=== PATIENT | female | born 1935 | race Caucasian/White ===

== ENCOUNTER 2017-04-19 22:58 | Emergency (ER) | payer MEDICARE, BC ==
[2017-04-19 23:04] VITALS: RESP 18; TEMP 98.3
[2017-04-19] MEDS ORDERED: CEPHALEXIN 500 MG CAP PO STA (23:32)
[2017-04-19] MEDS ORDERED: DIPH,PERTUS(ACELL)TETVAC-LF 0.5 ML VIAL IM ONE (23:32)
--- NOTE | 2017-04-19 23:37 | ED ---
Wound/Laceration HPI - General Chief Complaint: Wound/Laceration Stated Complaint: hand lac Time Seen by Provider: 04/19/17 23:19 Source: patient, RN notes reviewed Mode of arrival: ambulatory Limitations: altered mental status - History of Present Illness Initial Comments: 81-year-old female presents emergency Department chief complaint of cat scratch her left hand. She is unsure when her last tetanus was. Patient states there' s been some bruising from the site since the injury. Patient states this was caused by her cat. Patient states that she is diabetic though she is not taking any blood thinners and which would increase her bleeding recurs. Patient states she has full range of motion hand. - Related Data Previous Rx's Medication Instructions Recorded Amoxicillin/Potassium Clav 1 tab PO Q12HR #20 tab 04/19/17 [Augmentin 875-125 Tablet] Allergies Allergy/AdvReac Type Severity Reaction Status Date / Time No Known Allergies Allergy Verified 04/19/17 23:04 Review of Systems ROS Statement: Those systems with pertinent positive or pertinent negative responses have been documented in the HPI. ROS Other: All systems not noted in ROS Statement are negative. Past Medical History Past Medical History: Dementia, Diabetes Mellitus, Hypertension History of Any Multi-Drug Resistant Organisms: None Reported Past Surgical History: Cholecystectomy, Orthopedic Surgery Past Psychological History: No Psychological Hx Reported Smoking Status: Never smoker Past Alcohol Use History: None Reported Past Drug Use History: None Reported General Exam Limitations: altered mental status General appearance: alert, in no apparent distress Respiratory exam: Present: normal lung sounds bilaterally. Absent: respiratory distress, wheezes, rales, rhonchi, stridor Cardiovascular Exam: Present: regular rate, normal rhythm, normal heart sounds. Absent: systolic murmur, diastolic murmur, rubs, gallop, clicks Extremities exam: Present: other (Left hand there is a 3 cm superficial laceration to the left hand between the first and second digit) Skin exam: Present: warm, dry Course Vital Signs 04/19/17 23:01 Temperature 98.3 F Pulse Rate 65 Respiratory 18 Rate Blood Pressure 178/73 O2 Sat by Pulse 96 Oximetry Medical Decision Making - Medical Decision Making 81-year-old female presented emergency for Ashtray this was thoroughly cleaned bacitracin applied there is no active bleeding. The area was steri strips and dressed. Patient we given antibiotics and return parameters were discussed. Patient's tetanus is updated. Disposition Clinical Impression: Cat scratch Disposition: HOME SELF-CARE Condition: Stable Instructions: Animal Bite (ED) Additional Instructions: Please return to the Emergency Department if symptoms worsen or any other concerns. Prescriptions: Amoxicillin/Potassium Clav [Augmentin 875-125 Tablet] 1 tab PO Q12HR #20 tab Referrals: Juan Vega MD [Primary Care Provider] - 1-2 days Time of Disposition: 23:36
[2017-04-20 00:21] VITALS: BP 160/79; PULSE 72
== END 2017-04-20 00:15 | disposition home or self-care (01) ==
LOC: EC 22:58
DX: S60.512A Abrasion of left hand, initial encounter (principal); Z23 Encounter for immunization; W55.03XA Scratched by cat, initial encounter
CPT/HCPCS: 90471; 90715; 99282

== ENCOUNTER 2017-05-10 13:08 | Emergency (ER) | payer MEDICARE, BC ==
[2017-05-10 13:18] VITALS: RESP 18
[2017-05-10] MEDS ORDERED: SODIUM CHLORIDE 0.9% 1,000 ML IV STA (14:02)
[2017-05-10] MEDS ORDERED: MORPHINE SULFATE 4 MG/ML SYRINGE IV STA (14:02)
[2017-05-10] MEDS ORDERED: SODIUM CHLORIDE 0.9% 500 ML IV STA (14:02)
[2017-05-10] MEDS ORDERED: RX INFO: IV CONTRAST WAS GIVEN 1 EACH MISC MISCELLANE PRN (14:02)
[2017-05-10 14:27] LABS: Appearance,Urine Clear (Clear); Bilirubin,Urine Negative (Negative); Glucose,Urine (UA) 1+ (Negative); Ketones,Urine Negative (Negative); Leukocyte Esterase,Urine Moderate (Negative); Mucus,Urine Rare /hpf; Nitrite,Urine Negative (Negative); Particle Count 1587; Protein,Urine 2+ (Negative); RBC,Urine 2 /hpf (0-5); Specific Gravity,Urine 1.014 (1.001-1.035); Squamous Epithelial Cell,Urine 3 /hpf (0-4); UA Billing (MACRO vs. MICRO) MICRO; Urobilinogen,Urine <2.0 mg/dL (<2.0); WBC,Urine 18 /hpf (0-5)
[2017-05-10 14:42] LABS: Basophils % (A) 0 %; CH 29.3; CHCM 32.1; Eosinophils # (A) 0.3 k/uL (0-0.7); Eosinophils % (A) 3 %; HCT 40.7 % (34.0-46.0); HDW 2.21; HGB 13.4 gm/dL (11.4-16.0); Luc # (Auto) 0.13; Luc % (Auto) 2; Lymphocytes # (A) 1.9 k/uL (1.0-4.8); Lymphocytes % (A) 23 %; MCH 30.1 pg (25.0-35.0); MCHC 32.8 g/dL (31.0-37.0); MCV 91.8 fL (80.0-100.0); Mean Platelet Volume 7.5; Monocytes # (A) 0.4 k/uL (0-1.0); Monocytes % (A) 5 %; Neutrophils # (A) 5.6 k/uL (1.3-7.7); Neutrophils % (A) 67 %; RBC 4.43 m/uL (3.80-5.40); RDW 14.4 % (11.5-15.5); WBC 8.4 k/uL (3.8-10.6); WBC (Perox) 8.63
[2017-05-10 14:52] LABS: Amylase 41 U/L (30-110); Anion Gap 11 mmol/L; Calcium 9.6 mg/dL (8.4-10.2); Carbon Dioxide 25 mmol/L (22-30); Chloride 105 mmol/L (98-107); Glucose 145 mg/dL (74-99); Non-African American GFR(MDRD) >60 (>60 ml/min/1.73 sqM); Sodium 141 mmol/L (137-145); Total Bilirubin 0.7 mg/dL (0.2-1.3)
[2017-05-10 14:54] LABS: ALT 26 U/L (9-52); AST 36 U/L (14-36); Alkaline Phosphatase 64 U/L (38-126); Blood Urea Nitrogen 19 mg/dL (7-17); Potassium 4.7 mmol/L (3.5-5.1); Total Protein 7.3 g/dL (6.3-8.2)
--- NOTE | 2017-05-10 15:44 | ED ---
General Adult HPI - General Chief complaint: Abdominal Pain Stated complaint: Female Time Seen by Provider: 05/10/17 13:37 Source: patient, family, RN notes reviewed, old records reviewed Mode of arrival: wheelchair Limitations: no limitations - History of Present Illness Initial comments: This is an 82-year-old female to the ER for evaluation today. Patient's presented for evaluation of abdominal pain. States he has never had similar abdominal pain before, she is mainly concerned for urinary tract infection which is mid to left-sided abdominal pain left anterior abdominal pain. Denies blood in her urine denies diarrhea denies nausea or vomiting. No fevers no travel history. Patient does have history of cholecystectomy. Patient states she is eating and having bowel movement at this time. Again pain started yesterday into today and is progressively worsening - Related Data Home Medications Medication Instructions Recorded Confirmed Donepezil [Aricept] 10 mg PO DAILY 05/10/17 05/10/17 Losartan Potassium 75 mg PO DAILY 05/10/17 05/10/17 amLODIPine [Norvasc] 10 mg PO DAILY 05/10/17 05/10/17 metFORMIN HCL [Glucophage] 500 mg PO BID 05/10/17 05/10/17 Previous Rx's Medication Instructions Recorded Nitrofurantoin Monohyd/M-Cryst 100 mg PO Q12HR #10 cap 05/10/17 [Macrobid] Allergies Allergy/AdvReac Type Severity Reaction Status Date / Time No Known Allergies Allergy Verified 05/10/17 14:26 Review of Systems ROS Statement: Those systems with pertinent positive or pertinent negative responses have been documented in the HPI. ROS Other: All systems not noted in ROS Statement are negative. Past Medical History Past Medical History: Dementia, Diabetes Mellitus, Hypertension History of Any Multi-Drug Resistant Organisms: None Reported Past Surgical History: Cholecystectomy, Orthopedic Surgery Past Psychological History: No Psychological Hx Reported Smoking Status: Never smoker Past Alcohol Use History: None Reported Past Drug Use History: None Reported General Exam Limitations: no limitations General appearance: alert, in no apparent distress Head exam: Present: atraumatic, normocephalic, normal inspection Eye exam: Present: normal appearance, PERRL, EOMI. Absent: scleral icterus, conjunctival injection, periorbital swelling ENT exam: Present: normal exam, mucous membranes moist Neck exam: Present: normal inspection. Absent: tenderness, meningismus, lymphadenopathy Respiratory exam: Present: normal lung sounds bilaterally. Absent: respiratory distress, wheezes, rales, rhonchi, stridor Cardiovascular Exam: Present: regular rate, normal rhythm, normal heart sounds. Absent: systolic murmur, diastolic murmur, rubs, gallop, clicks GI/Abdominal exam: Present: soft, tenderness (Left lower quadrant pain), normal bowel sounds. Absent: distended, guarding, rebound, rigid Extremities exam: Present: normal inspection, full ROM, normal capillary refill. Absent: tenderness, pedal edema, joint swelling, calf tenderness Back exam: Present: normal inspection Neurological exam: Present: alert, oriented X3, CN II-XII intact Psychiatric exam: Present: normal affect, normal mood Skin exam: Present: warm, dry, intact, normal color. Absent: rash Course Vital Signs 05/10/17 05/10/17 13:15 14:29 Temperature 98.7 F Pulse Rate 79 73 Respiratory 18 18 Rate Blood Pressure 169/77 165/81 O2 Sat by Pulse 95 95 Oximetry - Reevaluation(s) Reevaluation #1: 05/10/17 15:52 Patient has adequate pain control at this time with no distress Medical Decision Making - Medical Decision Making 82 female to the ER for evaluation of bowel pain. Mild dysuria. Patient has positive urinary tract infection lab work and CT are negative. Patient can be discharged on - Lab Data Result diagrams: 05/10/17 14:26 05/10/17 14:26 Lab Results 05/10/17 05/10/17 05/10/17 Range/Units 14:17 14:26 14:26 WBC 8.4 (3.8-10.6) k/uL RBC 4.43 (3.80-5.40) m/uL Hgb 13.4 (11.4-16.0) gm/dL Hct 40.7 (34.0-46.0) % MCV 91.8 (80.0-100.0) fL MCH 30.1 (25.0-35.0) pg MCHC 32.8 (31.0-37.0) g/dL RDW 14.4 (11.5-15.5) % Plt Count 360 (150-450) k/uL Neutrophils % 67 % Lymphocytes % 23 % Monocytes % 5 % Eosinophils % 3 % Basophils % 0 % Neutrophils # 5.6 (1.3-7.7) k/uL Lymphocytes # 1.9 (1.0-4.8) k/uL Monocytes # 0.4 (0-1.0) k/uL Eosinophils # 0.3 (0-0.7) k/uL Basophils # 0.0 (0-0.2) k/uL Sodium 141 (137-145) mmol/L Potassium 4.7 (3.5-5.1) mmol/L Chloride 105 (98-107) mmol/L Carbon Dioxide 25 (22-30) mmol/L Anion Gap 11 mmol/L BUN 19 H (7-17) mg/dL Creatinine 0.82 (0.52-1.04) mg/dL Est GFR (MDRD) Af Amer >60 (>60 ml/min/1.73 sqM) Est GFR (MDRD) Non-Af >60 (>60 ml/min/1.73 sqM) Glucose 145 H (74-99) mg/dL Plasma Lactic Acid Jian (0.7-2.0) mmol/L Calcium 9.6 (8.4-10.2) mg/dL Total Bilirubin 0.7 (0.2-1.3) mg/dL AST 36 (14-36) U/L ALT 26 (9-52) U/L Alkaline Phosphatase 64 (38-126) U/L Total Protein 7.3 (6.3-8.2) g/dL Albumin 4.2 (3.5-5.0) g/dL Amylase 41 (30-110) U/L Lipase 95 (23-300) U/L Urine Color Yellow Urine Appearance Clear (Clear) Urine pH 7.0 (5.0-8.0) Ur Specific [place] 1.014 (1.001-1.035) Urine Protein 2+ H (Negative) Urine Glucose (UA) 1+ H (Negative) Urine Ketones Negative (Negative) Urine Blood Negative (Negative) Urine Nitrite Negative (Negative) Urine Bilirubin Negative (Negative) Urine Urobilinogen <2.0 (<2.0) mg/dL Ur Leukocyte Esterase Moderate H (Negative) Urine RBC 2 (0-5) /hpf Urine WBC 18 H (0-5) /hpf Ur Squamous Epith Cells 3 (0-4) /hpf Urine Mucus Rare H (None) /hpf 05/10/17 Range/Units 14:26 WBC (3.8-10.6) k/uL RBC (3.80-5.40) m/uL Hgb (11.4-16.0) gm/dL Hct (34.0-46.0) % MCV (80.0-100.0) fL MCH (25.0-35.0) pg MCHC (31.0-37.0) g/dL RDW (11.5-15.5) % Plt Count (150-450) k/uL Neutrophils % % Lymphocytes % % Monocytes % % Eosinophils % % Basophils % % Neutrophils # (1.3-7.7) k/uL Lymphocytes # (1.0-4.8) k/uL Monocytes # (0-1.0) k/uL Eosinophils # (0-0.7) k/uL Basophils # (0-0.2) k/uL Sodium (137-145) mmol/L Potassium (3.5-5.1) mmol/L Chloride (98-107) mmol/L Carbon Dioxide (22-30) mmol/L Anion Gap mmol/L BUN (7-17) mg/dL Creatinine (0.52-1.04) mg/dL Est GFR (MDRD) Af Amer (>60 ml/min/1.73 sqM) Est GFR (MDRD) Non-Af (>60 ml/min/1.73 sqM) Glucose (74-99) mg/dL Plasma Lactic Acid Jian 1.5 (0.7-2.0) mmol/L Calcium (8.4-10.2) mg/dL Total Bilirubin (0.2-1.3) mg/dL AST (14-36) U/L ALT (9-52) U/L Alkaline Phosphatase (38-126) U/L Total Protein (6.3-8.2) g/dL Albumin (3.5-5.0) g/dL Amylase (30-110) U/L Lipase (23-300) U/L Urine Color Urine Appearance (Clear) Urine pH (5.0-8.0) Ur Specific [place] (1.001-1.035) Urine Protein (Negative) Urine Glucose (UA) (Negative) Urine Ketones (Negative) Urine Blood (Negative) Urine Nitrite (Negative) Urine Bilirubin (Negative) Urine Urobilinogen (<2.0) mg/dL Ur Leukocyte Esterase (Negative) Urine RBC (0-5) /hpf Urine WBC (0-5) /hpf Ur Squamous Epith Cells (0-4) /hpf Urine Mucus (None) /hpf - Radiology Data Radiology results: report reviewed (CT abdomen and pelvis is negative), image reviewed Disposition Clinical Impression: UTI (urinary tract infection), Abdominal pain Disposition: HOME SELF-CARE Condition: Good Instructions: Urinary Tract Infection in Women (ED) Prescriptions: Nitrofurantoin Monohyd/M-Cryst [Macrobid] 100 mg PO Q12HR #10 cap Referrals: Juan Vega MD [Primary Care Provider] - 1-2 days
--- NOTE | 2017-05-10 15:47 | CT ---
EXAMINATION TYPE: CT abdomen pelvis w con DATE OF EXAM: 05/10/2017 COMPARISON: NONE HISTORY: Left sided pain CT DLP: 602.8 mGycm Automated exposure control for dose reduction was used. TECHNIQUE: Helical acquisition of images was performed from the lung bases through the pelvis. CONTRAST: Performed without Oral Contrast and with IV Contrast, patient injected with 100 mL of Omnipaque 300. FINDINGS: Heart appears enlarged. Lung bases are clear of consolidation. There is no pleural effusion. Liver shows no focal defect. Spleen and pancreas appear normal. Gallbladder is not seen. Bile ducts a re not dilated. There is no adrenal mass. There are small bilateral renal cortical cysts. There is no hydronephrosis. There is no retroperitoneal adenopathy. There is no ascites. There are multiple sigmoid diverticula. Bladder distends smoothly. There is no sign of a pelvic mass. There are spondylotic changes in the l umbar spine. Abdominal aorta is atheromatous. IMPRESSION: MODERATELY SEVERE SIGMOID DIVERTICULOSIS. NO DEFINITE DIVERTICULITIS. ATHEROSCLEROTIC VASCULAR DISEAS E. SPONDYLOTIC CHANGES IN THE LUMBAR SPINE. NO SIGN OF APPENDICITIS. MODERATE OSTEOARTHRITIS NOTED IN BOTH HIP JOINTS.
[2017-05-10] MEDS ORDERED: NITROFURANTOIN MONOHYD/M-CRYST 100 MG CAP PO STA (15:51)
[2017-05-10 16:15] VITALS: BP 175/76; PULSE 78; TEMP 97.6
== END 2017-05-10 16:25 | disposition home or self-care (01) ==
LOC: EC 13:08
DX: N39.0 Urinary tract infection, site not specified (principal); E11.9 Type 2 diabetes mellitus without complications; I10 Essential (primary) hypertension; F03.90 Unspecified dementia, unspecified severity, without behavioral disturbance, psychotic disturbance, mood disturbance, and anxiety; Z90.49 Acquired absence of other specified parts of digestive tract; Z53.8 Procedure and treatment not carried out for other reasons; Z79.84 Long term (current) use of oral hypoglycemic drugs; Z79.899 Other long term (current) drug therapy
CPT/HCPCS: 96360 ×2; 96361 ×2; 99284 ×2; 36415; 80053; 82150; 83605; 83690; 85025; 81001; 87086; 87077; 87186; 74177; Q9967

== ENCOUNTER 2017-10-21 10:33 | Inpatient (IN) | payer MEDICARE, BC ==
[2017-10-21 11:21] LABS: Basophils % (A) 0 %; Eosinophils # (A) 0.1 k/uL (0-0.7); Eosinophils % (A) 1 %; HCT 34.6 % (34.0-46.0); HGB 11.8 gm/dL (11.4-16.0); Lymphocytes # (A) 0.7 k/uL (1.0-4.8); Lymphocytes % (A) 9 %; MCH 29.5 pg (25.0-35.0); MCV 86.7 fL (80.0-100.0); Mean Platelet Volume 7.8; Monocytes # (A) 0.5 k/uL (0-1.0); Monocytes % (A) 7 %; Neutrophils # (A) 6.4 k/uL (1.3-7.7); Neutrophils % (A) 82 %; Platelet Count 305 k/uL (150-450); RBC 3.99 m/uL (3.80-5.40); RDW 13.8 % (11.5-15.5); WBC 7.8 k/uL (3.8-10.6)
[2017-10-21 11:29] LABS: Prothrombin Time 9.6 sec (9.0-12.0)
--- NOTE | 2017-10-21 11:30 | XR ---
EXAMINATION TYPE: XR chest 2V DATE OF EXAM: 10/21/2017 COMPARISON: NONE HISTORY: Cough and difficulty breathing. TECHNIQUE: Frontal and lateral views of the chest are obtained. FINDINGS: There is suspicious retrocardiac opacity on 2 views with air bronchograms. Right lung is c lear. The cardiac silhouette size is upper limits of normal with atherosclerotic change in aortic kno b. Spine is straightened on lateral image. IMPRESSION: Suspicious posterior left lower lobe infiltrate.
[2017-10-21 11:36] LABS: Partial Thromboplastin Time 22.1 sec (22.0-30.0)
[2017-10-21 11:50] LABS: Creatine Kinase 77 U/L (30-135)
[2017-10-21 12:01] LABS: Troponin I <0.012 ng/mL (0.000-0.034)
[2017-10-21 12:50] LABS: Albumin 3.1 g/dL (3.5-5.0); Calcium 8.7 mg/dL (8.4-10.2); Potassium 5.2 mmol/L (3.5-5.1); Total Bilirubin 0.4 mg/dL (0.2-1.3); Total Protein 5.7 g/dL (6.3-8.2)
[2017-10-21] MEDS ORDERED: cefTRIAXone IN SWFI 2,000 MG/20 ML SYRINGE IVP STA (15:17)
--- NOTE | 2017-10-21 15:17 | ED ---
SOB HPI - General Chief Complaint: Shortness of Breath Stated Complaint: Cough, Congestion Time Seen by Provider: 10/21/17 10:49 Source: patient, family Mode of arrival: wheelchair Limitations: altered mental status - History of Present Illness Initial Comments: 82 years old lady came to the doctor's office she was quite short winded there she says sure shortness of breath been around for 2 days now and denies any chest pain it doesn't hurt to take deep breaths denies any fever or any chills she has been spitting up some phlegm. She does have a history of diabetes and hypertension. Denies any fever no chills no neck stiffness no abdominal pain no frequency urgency dysuria no symptoms of TIA or CVA - Related Data Home Medications Medication Instructions Recorded Confirmed Donepezil [Aricept] 10 mg PO HS 05/10/17 10/21/17 Losartan Potassium 75 mg PO DAILY 05/10/17 10/21/17 amLODIPine [Norvasc] 10 mg PO DAILY 05/10/17 10/21/17 metFORMIN HCL [Glucophage] 500 mg PO AC-BID 05/10/17 10/21/17 Atenolol [Tenormin] 50 mg PO BID 10/21/17 10/21/17 Magnesium Oxide [Mag-Ox] 400 mg PO BID 10/21/17 10/21/17 Memantine [Namenda] 5 mg PO BID 10/21/17 10/21/17 Pantoprazole [Protonix] 40 mg PO DAILY 10/21/17 10/21/17 glipiZIDE [Glucotrol] 10 mg PO AC-BID 10/21/17 10/21/17 Allergies Allergy/AdvReac Type Severity Reaction Status Date / Time No Known Allergies Allergy Verified 10/21/17 10:38 Review of Systems ROS Statement: Those systems with pertinent positive or pertinent negative responses have been documented in the HPI. ROS Other: All systems not noted in ROS Statement are negative. Past Medical History Past Medical History: Dementia, Diabetes Mellitus, Hypertension History of Any Multi-Drug Resistant Organisms: ESBL Date of last positivie culture/infection: 05/10/17 MDRO Source:: URINE ESBL Past Surgical History: Cholecystectomy, Orthopedic Surgery Past Psychological History: No Psychological Hx Reported Smoking Status: Never smoker Past Alcohol Use History: None Reported Past Drug Use History: None Reported General Exam - General Exam Comments Initial Comments: General: The patient is awake and alert, in mild distress Skin: Skin is warm and dry and no rashes or lesions are noted. Eye: Pupils are equal, round and reactive to light, extra-ocular movements are intact; there is normal conjunctiva bilaterally. Ears, nose, mouth and throat: There are moist mucous membranes and no oral lesions. Neck: The neck is supple, there is no tenderness Cardiovascular: There is a regular rate and rhythm. No murmur, rub or gallop is appreciated. Respiratory: To auscultation bilateral, noticed some crackles at the bases Gastrointestinal: Soft, non-distended, non-tender abdomen without masses or organomegaly noted. There is no rebound or guarding present. Bowel sounds are unremarkable. Back: There is no tenderness to palpation in the midline. There is no obvious deformity. Musculoskeletal: Normal ROM, no tenderness, There is no pedal edema. There is no calf tenderness or swelling. No cords were appreciated. Neurological: CN II-XII intact, Cranial nerves III through XII are intact. There are no obvious motor or sensory deficits. Coordination appears grossly intact. Speech is normal. Psychiatric: Cooperative, appropriate mood & affect, normal judgment. Limitations: altered mental status Course Vital Signs 10/21/17 10/21/17 10/21/17 10:36 11:03 11:45 Temperature 98.0 F Pulse Rate 65 68 62 Respiratory 20 20 20 Rate Blood Pressure 148/68 150/65 127/60 O2 Sat by Pulse 94 L 97 97 Oximetry 10/21/17 10/21/17 13:33 14:42 Temperature Pulse Rate 57 L 59 L Respiratory 20 18 Rate Blood Pressure 121/60 116/59 O2 Sat by Pulse 97 97 Oximetry EKG is sinus bradycardia ventricular rate is 57 NM interval is 144 QRS duration is 72 QT/QTc is 470/444 review of this EKG does not reveal any ST elevation or ST depression She is reassessed, CBC, INR, BS metabolic panel are unremarkable glucose is 214 creatinine is 1.27 troponin is negative EKG was unremarkable considering she is 82 and has pneumonia Medical Decision Making - Lab Data Result diagrams: 10/21/17 11:00 10/21/17 12:22 Lab Results 10/21/17 10/21/17 10/21/17 Range/Units 11:00 11:00 11:00 WBC 7.8 (3.8-10.6) k/uL RBC 3.99 (3.80-5.40) m/uL Hgb 11.8 (11.4-16.0) gm/dL Hct 34.6 (34.0-46.0) % MCV 86.7 (80.0-100.0) fL MCH 29.5 (25.0-35.0) pg MCHC 34.0 (31.0-37.0) g/dL RDW 13.8 (11.5-15.5) % Plt Count 305 (150-450) k/uL Neutrophils % 82 % Lymphocytes % 9 % Monocytes % 7 % Eosinophils % 1 % Basophils % 0 % Neutrophils # 6.4 (1.3-7.7) k/uL Lymphocytes # 0.7 L (1.0-4.8) k/uL Monocytes # 0.5 (0-1.0) k/uL Eosinophils # 0.1 (0-0.7) k/uL Basophils # 0.0 (0-0.2) k/uL PT (9.0-12.0) sec INR (<1.2) APTT (22.0-30.0) sec Sodium (137-145) mmol/L Potassium (3.5-5.1) mmol/L Chloride (98-107) mmol/L Carbon Dioxide (22-30) mmol/L Anion Gap mmol/L BUN (7-17) mg/dL Creatinine (0.52-1.04) mg/dL Est GFR (CKD-EPI)AfAm (>60 ml/min/1.73 sqM) Est GFR (CKD-EPI)NonAf (>60 ml/min/1.73 sqM) Glucose (74-99) mg/dL Calcium (8.4-10.2) mg/dL Total Bilirubin (0.2-1.3) mg/dL AST (14-36) U/L ALT (9-52) U/L Alkaline Phosphatase (38-126) U/L Total Creatine Kinase 77 (30-135) U/L CK-MB (CK-2) 1.0 (0.0-2.4) ng/mL CK-MB (CK-2) Rel Index 1.3 Troponin I <0.012 (0.000-0.034) ng/mL NT-Pro-B Natriuret Pep 1400 pg/mL Total Protein (6.3-8.2) g/dL Albumin (3.5-5.0) g/dL 10/21/17 10/21/17 Range/Units 11:00 12:22 WBC (3.8-10.6) k/uL RBC (3.80-5.40) m/uL Hgb (11.4-16.0) gm/dL Hct (34.0-46.0) % MCV (80.0-100.0) fL MCH (25.0-35.0) pg MCHC (31.0-37.0) g/dL RDW (11.5-15.5) % Plt Count (150-450) k/uL Neutrophils % % Lymphocytes % % Monocytes % % Eosinophils % % Basophils % % Neutrophils # (1.3-7.7) k/uL Lymphocytes # (1.0-4.8) k/uL Monocytes # (0-1.0) k/uL Eosinophils # (0-0.7) k/uL Basophils # (0-0.2) k/uL PT 9.6 (9.0-12.0) sec INR 1.0 (<1.2) APTT 22.1 (22.0-30.0) sec Sodium 136 L (137-145) mmol/L Potassium 5.2 H (3.5-5.1) mmol/L Chloride 103 (98-107) mmol/L Carbon Dioxide 23 (22-30) mmol/L Anion Gap 10 mmol/L BUN 34 H (7-17) mg/dL Creatinine 1.27 H (0.52-1.04) mg/dL Est GFR (CKD-EPI)AfAm 45 (>60 ml/min/1.73 sqM) Est GFR (CKD-EPI)NonAf 39 (>60 ml/min/1.73 sqM) Glucose 214 H (74-99) mg/dL Calcium 8.7 (8.4-10.2) mg/dL Total Bilirubin 0.4 (0.2-1.3) mg/dL AST 20 (14-36) U/L ALT 21 (9-52) U/L Alkaline Phosphatase 55 (38-126) U/L Total Creatine Kinase (30-135) U/L CK-MB (CK-2) (0.0-2.4) ng/mL CK-MB (CK-2) Rel Index Troponin I (0.000-0.034) ng/mL NT-Pro-B Natriuret Pep pg/mL Total Protein 5.7 L (6.3-8.2) g/dL Albumin 3.1 L (3.5-5.0) g/dL Disposition Clinical Impression: Acute pulmonary edema, Pneumonia, Dyspnea, Renal insufficiency Disposition: ADMITTED IP TO THIS HOSP Condition: Good Referrals: Juan Vega MD [Primary Care Provider] - 1-2 days
[2017-10-21] MEDS ORDERED: AZITHROMYCIN 500 MG TAB PO STA (15:18)
[2017-10-21] MEDS ORDERED: ONDANSETRON 4 MG/2 ML VIAL IVP PRN (15:23)
[2017-10-21] MEDS ORDERED: ACETAMINOPHEN TAB 325 MG TAB PO PRN (15:23)
[2017-10-21] MEDS ORDERED: NALOXONE 0.4 MG/ML 1 ML VIAL IV PRN (15:23)
[2017-10-21] MEDS: glipiZIDE 10 MG TAB PO SCH (18:05)
[2017-10-21] MEDS: metFORMIN 500 MG TAB PO SCH (18:05)
[2017-10-21] MEDS: MAGNESIUM OXIDE 400 MG TAB PO SCH (20:08)
[2017-10-21] MEDS: ATENOLOL 50 MG TAB PO SCH (20:08)
[2017-10-21] MEDS: MEMANTINE 5 MG TAB PO SCH (20:08)
[2017-10-21] MEDS: DONEPEZIL 10 MG TAB PO SCH (20:08)
[2017-10-21 20:51] LABS: Glucose,Whole Blood 217 mg/dL (75-99)
[2017-10-21 23:59] LABS: Creatine Kinase 57 U/L (30-135)
[2017-10-22 00:13] LABS: Creatine Kinase MB 0.9 ng/mL (0.0-2.4); Troponin I <0.012 ng/mL (0.000-0.034)
[2017-10-22 07:02] LABS: Glucose,Whole Blood 188 mg/dL (75-99)
--- NOTE | 2017-10-22 07:23 | P.HPIM ---
History of Present Illness H&P Date: 10/22/17 Chief Complaint: Cough and shortness of breath. This is a history and physical on a 2-year-old white female who recently saw my nurse practitioner yesterday and had significant cough and congestion. Evaluation in the emergency room because of her advancing age did show left lower lobe infiltrate. She is now admitted for significant pneumonia given her high risk score. She hasn't underlying history diabetes. She is nonsmoker she has no second smoke exposure. The patient is lucid and resting comfortably at this point. No fever this morning. However she does feel warm to the touch. The patient does not complain of any significant diarrhea or constipation. The patient suspect she's had this for about 3-4 days. [id number] medication has not been palliative. Review of Systems Constitutional: Reports fever Eyes: denies blurred vision, denies pain Ears, nose, mouth and throat: Denies headache, Denies sore throat Cardiovascular: Reports decreased exercise tolerance Respiratory: Reports cough, Reports cough with sputum Gastrointestinal: Denies abdominal pain, Denies diarrhea, Denies nausea, Denies vomiting Genitourinary: Denies dysuria, Denies hematuria Musculoskeletal: Denies myalgias Past Medical History Past Medical History: Dementia, Diabetes Mellitus, Hypertension Additional Past Medical History / Comment(s): uti-ecoli History of Any Multi-Drug Resistant Organisms: ESBL Date of last positivie culture/infection: 05/10/17 MDRO Source:: URINE ESBL Past Surgical History: Cholecystectomy Past Anesthesia/Blood Transfusion Reactions: No Reported Reaction Smoking Status: Never smoker - Past Family History Father History Unknown: Yes Mother History Unknown: Yes Medications and Allergies Home Medications Medication Instructions Recorded Confirmed Type Donepezil [Aricept] 10 mg PO HS 05/10/17 10/21/17 History Losartan Potassium 75 mg PO DAILY 05/10/17 10/21/17 History amLODIPine [Norvasc] 10 mg PO DAILY 05/10/17 10/21/17 History metFORMIN HCL [Glucophage] 500 mg PO AC-BID 05/10/17 10/21/17 History Atenolol [Tenormin] 50 mg PO BID 10/21/17 10/21/17 History Magnesium Oxide [Mag-Ox] 400 mg PO BID 10/21/17 10/21/17 History Memantine [Namenda] 5 mg PO BID 10/21/17 10/21/17 History Pantoprazole [Protonix] 40 mg PO DAILY 10/21/17 10/21/17 History glipiZIDE [Glucotrol] 10 mg PO AC-BID 10/21/17 10/21/17 History Allergies Allergy/AdvReac Type Severity Reaction Status Date / Time No Known Allergies Allergy Verified 10/21/17 10:38 Physical Exam Vitals: Vital Signs Temp Pulse Pulse Resp BP BP Pulse Ox 10/21/17 23:00 100.3 F H 64 20 134/53 93 L 10/21/17 18:03 100.7 F H 66 18 149/78 96 10/21/17 17:19 99.1 F 64 20 149/61 95 10/21/17 15:47 58 L 20 143/67 96 10/21/17 14:42 59 L 18 116/59 97 10/21/17 13:33 57 L 20 121/60 97 10/21/17 11:45 62 20 127/60 97 10/21/17 11:03 68 20 150/65 97 10/21/17 10:36 98.0 F 65 20 148/68 94 L Intake and Output 10/21/17 10/22/17 10/22/17 22:59 06:59 14:59 Other: Voiding Method Toilet # Voids 1 1 Weight 65 kg - Constitutional General appearance: no acute distress - EENT Eyes: EOMI - Neck Neck: no lymphadenopathy - Respiratory Respiratory: left: rhonchi, wheezing - Cardiovascular Rhythm: regular Heart sounds: normal: S1, S2 Abnormal Heart Sounds: no S3 Gallop - Gastrointestinal General gastrointestinal: soft, no tenderness - Integumentary Integumentary: no cellulitis - Neurologic Neurologic: CNII-XII intact - Musculoskeletal Musculoskeletal: generalized weakness - Psychiatric Psychiatric: A&O x's 3, appropriate affect Results CBC & Chem 7: 10/21/17 11:00 10/21/17 12:22 Labs: Abnormal Lab Results - Last 24 Hours (Table) 10/21/17 10/21/17 10/21/17 Range/Units 11:00 12:22 20:49 Lymphocytes # 0.7 L (1.0-4.8) k/uL Sodium 136 L (137-145) mmol/L Potassium 5.2 H (3.5-5.1) mmol/L BUN 34 H (7-17) mg/dL Creatinine 1.27 H (0.52-1.04) mg/dL Glucose 214 H (74-99) mg/dL POC Glucose (mg/dL) 217 H (75-99) mg/dL Total Protein 5.7 L (6.3-8.2) g/dL Albumin 3.1 L (3.5-5.0) g/dL 10/22/17 Range/Units 06:58 Lymphocytes # (1.0-4.8) k/uL Sodium (137-145) mmol/L Potassium (3.5-5.1) mmol/L BUN (7-17) mg/dL Creatinine (0.52-1.04) mg/dL Glucose (74-99) mg/dL POC Glucose (mg/dL) 188 H (75-99) mg/dL Total Protein (6.3-8.2) g/dL Albumin (3.5-5.0) g/dL Assessment and Plan (1) Diabetes Current Visit: Yes Status: Chronic Priority: Medium Code(s): E11.9 - TYPE 2 DIABETES MELLITUS WITHOUT COMPLICATIONS SNOMED Code(s): 70467584 (2) Dyspnea Current Visit: Yes Status: Acute Priority: High Code(s): R06.00 - DYSPNEA , UNSPECIFIED SNOMED Code(s): 123189112 (3) Pneumonia Current Visit: Yes Status: Acute Priority: High Code(s): J18.9 - PNEUMONIA , UNSPECIFIED ORGANISM SNOMED Code(s): 577900744 Plan: Going continue current antibiotic treatment. Add nebulizer treatments for respiratory status. Increase activity as tolerated. Check CBC and CMP in a.m. per Reconcile medications and sliding scale. See orders otherwise. Time with Patient: Greater than 30
[2017-10-22] MEDS: metFORMIN 500 MG TAB PO SCH ×2 (09:47→16:52)
[2017-10-22] MEDS: glipiZIDE 10 MG TAB PO SCH ×2 (09:47→16:52)
[2017-10-22] MEDS: MAGNESIUM OXIDE 400 MG TAB PO SCH ×2 (09:47→21:02)
[2017-10-22] MEDS: MEMANTINE 5 MG TAB PO SCH ×2 (09:47→21:02)
[2017-10-22] MEDS: ATENOLOL 50 MG TAB PO SCH ×2 (09:47→21:02)
[2017-10-22] MEDS: PANTOPRAZOLE 40 MG TABLET PO SCH (10:40)
[2017-10-22] MEDS: LOSARTAN 25 MG TAB PO SCH (10:40)
[2017-10-22] MEDS: amLODIPine 10 MG TAB PO SCH (10:41)
[2017-10-22] MEDS: cefTRIAXone IN SWFI 2,000 MG/20 ML SYRINGE IVP SCH (10:41)
[2017-10-22 12:19] LABS: Glucose,Whole Blood 175 mg/dL (75-99)
[2017-10-22] MEDS: DONEPEZIL 10 MG TAB PO SCH (21:02)
[2017-10-23 07:44] LABS: HCT 34.2 % (34.0-46.0); HGB 11.4 gm/dL (11.4-16.0); MCH 28.5 pg (25.0-35.0); MCHC 33.2 g/dL (31.0-37.0); MCV 85.9 fL (80.0-100.0); Mean Platelet Volume 7.9; Platelet Count 292 k/uL (150-450); RBC 3.98 m/uL (3.80-5.40); RDW 13.3 % (11.5-15.5)
[2017-10-23] MEDS: glipiZIDE 10 MG TAB PO SCH ×2 (07:47→18:15)
[2017-10-23] MEDS: PANTOPRAZOLE 40 MG TABLET PO SCH (07:47)
[2017-10-23] MEDS: MAGNESIUM OXIDE 400 MG TAB PO SCH ×2 (07:47→21:25)
[2017-10-23] MEDS: LOSARTAN 25 MG TAB PO SCH (07:47)
[2017-10-23] MEDS: ATENOLOL 50 MG TAB PO SCH ×2 (07:47→21:25)
[2017-10-23] MEDS: MEMANTINE 5 MG TAB PO SCH ×2 (07:47→21:25)
[2017-10-23] MEDS: cefTRIAXone IN SWFI 2,000 MG/20 ML SYRINGE IVP SCH (07:48)
[2017-10-23] MEDS: amLODIPine 10 MG TAB PO SCH (07:48)
[2017-10-23] MEDS: metFORMIN 500 MG TAB PO SCH ×2 (07:48→18:15)
[2017-10-23 07:56] LABS: Calcium 8.8 mg/dL (8.4-10.2); Potassium 4.9 mmol/L (3.5-5.1); Total Bilirubin 0.4 mg/dL (0.2-1.3); Total Protein 5.6 g/dL (6.3-8.2)
--- NOTE | 2017-10-23 08:24 | P.PN ---
Subjective Progress Note Date: 10/23/17 Principal diagnosis: Continue pneumonia treatment. Continuing care. This is a continue present on an 82-year-old white female with known history of diabetes and element of presbycusis. The patient has been admitted essentially for left lower lobe pneumonia. The patient is actually improved quite well and sitting up in a chair. She has been walking in walker. Therapy has been consulted. Clinically much more improved. No significant nausea, vomiting or diarrhea is stated. Objective - Vital Signs Vital signs: Vital Signs Temp 98.4 F 10/23/17 06:31 Pulse 61 10/23/17 06:31 Resp 18 10/23/17 07:48 BP 149/74 10/23/17 06:31 Pulse Ox 95 10/23/17 06:31 Intake & Output 10/22/17 10/23/17 10/23/17 18:59 06:59 18:59 Intake Total 300 300 Balance 300 300 Weight 65 kg 65 kg Intake: Oral 300 300 Other: Voiding Method Incontinent Toilet Incontinent # Voids 3 3 # Bowel Movements 1 2 - Constitutional General appearance: Present: average body habitus, cooperative - EENT Eyes: Absent: abnormal pupil - Respiratory Respiratory: left: diminished - Cardiovascular Rhythm: regular Heart sounds: normal: S1, S2 Abnormal Heart Sounds: Absent: S3 Gallop - Gastrointestinal General gastrointestinal: Present: soft. Absent: tenderness - Psychiatric Psychiatric: Present: A&O x's 3. Absent: appropriate affect - Labs CBC & Chem 7: 10/23/17 07:05 10/23/17 07:05 Labs: Abnormal Lab Results - Last 24 Hours (Table) 10/22/17 10/23/17 Range/Units 12:03 07:05 BUN 25 H (7-17) mg/dL Creatinine 1.06 H (0.52-1.04) mg/dL Glucose 130 H (74-99) mg/dL POC Glucose (mg/dL) 175 H (75-99) mg/dL Total Protein 5.6 L (6.3-8.2) g/dL Albumin 3.0 L (3.5-5.0) g/dL Assessment and Plan (1) Diabetes Current Visit: Yes Status: Chronic Priority: Medium Code(s): E11.9 - TYPE 2 DIABETES MELLITUS WITHOUT COMPLICATIONS SNOMED Code(s): 04432963 (2) Dyspnea Current Visit: Yes Status: Acute Priority: High Code(s): R06.00 - DYSPNEA , UNSPECIFIED SNOMED Code(s): 971108480 (3) Pneumonia Current Visit: Yes Status: Acute Priority: High Code(s): J18.9 - PNEUMONIA , UNSPECIFIED ORGANISM SNOMED Code(s): 240277757 Plan: Continue current regimen or treatment. Check CBC and CMP in a.m.. Anticipate discharge in the a.m. Dr. Springer's group will be covering for the weekend. Prognosis is improved. Time with Patient: Less than 30
[2017-10-23] MEDS: DONEPEZIL 10 MG TAB PO SCH (21:25)
[2017-10-24] MEDS: amLODIPine 10 MG TAB PO SCH (08:47)
[2017-10-24] MEDS: MEMANTINE 5 MG TAB PO SCH ×2 (08:47→20:49)
[2017-10-24] MEDS: PANTOPRAZOLE 40 MG TABLET PO SCH (08:47)
[2017-10-24] MEDS: LOSARTAN 25 MG TAB PO SCH (08:47)
[2017-10-24] MEDS: metFORMIN 500 MG TAB PO SCH ×2 (08:47→17:15)
[2017-10-24] MEDS: glipiZIDE 10 MG TAB PO SCH ×2 (08:47→17:15)
[2017-10-24] MEDS: MAGNESIUM OXIDE 400 MG TAB PO SCH ×2 (08:47→20:48)
[2017-10-24] MEDS: ATENOLOL 50 MG TAB PO SCH ×2 (08:47→20:49)
[2017-10-24] MEDS: cefTRIAXone IN SWFI 2,000 MG/20 ML SYRINGE IVP SCH (08:47)
[2017-10-24 09:43] LABS: HCT 40.1 % (34.0-46.0); HGB 12.6 gm/dL (11.4-16.0); MCH 28.1 pg (25.0-35.0); MCHC 31.5 g/dL (31.0-37.0); Mean Platelet Volume 8.5; Platelet Count 277 k/uL (150-450); RDW 13.4 % (11.5-15.5); WBC 8.6 k/uL (3.8-10.6)
[2017-10-24 09:48] LABS: Albumin 3.4 g/dL (3.5-5.0); Calcium 9.2 mg/dL (8.4-10.2); Total Bilirubin 0.6 mg/dL (0.2-1.3); Total Protein 6.4 g/dL (6.3-8.2)
--- NOTE | 2017-10-24 16:09 | PN ---
PROGRESS NOTE DATE OF SERVICE: 10/24/2017 Patient seen in the room by bedside, sitting up in a chair. She is in no acute distress. VITAL SIGNS: Temperature of 98.4, pulse 62, respiration 18, blood pressure 136/66, O2 saturation 97% on room air. HEENT: Atraumatic, normocephalic. Pupils equal and reactive to light. Extraocular movements intact. Buccal mucosa is fair. Neck is supple. No goiter or lymphadenopathy. JVD is negative. No carotid bruit heard. LUNGS: Scattered rhonchi with rales at the left lower lobe. The heart is regular rate and rhythm without any murmurs or gallop rhythm. Abdomen is soft, nontender, nondistended. Bowel sounds positive. EXTREMITIES: No edema, clubbing or cyanosis. LABS: CBC: White blood count 8.6, hemoglobin 12.6, hematocrit 41.4, and platelet count 277. Chemical profile: Sodium 140, potassium 5.0, chloride 104, bicarb 23, BUN 28, creatinine 0.9, glucose 163. ASSESSMENT: 1. Community-acquired pneumonia. 2. Dyspnea possibly secondary to pneumonia. 3. Type 2 diabetes mellitus, fairly controlled. The patient remains on IV antibiotics and on nebulizer treatment. Will increase activity with PT, OT and also for directions towards discharge planning. We will continue to monitor electrolytes. Continue with sliding scale protocol. Possible discharge in next 24 hours. MMODL / IJN: [id number] /
[2017-10-24] MEDS: DONEPEZIL 10 MG TAB PO SCH (20:49)
[2017-10-25] MEDS: MAGNESIUM OXIDE 400 MG TAB PO SCH ×2 (08:09→21:14)
[2017-10-25] MEDS: MEMANTINE 5 MG TAB PO SCH ×2 (08:10→21:14)
[2017-10-25] MEDS: PANTOPRAZOLE 40 MG TABLET PO SCH (08:10)
[2017-10-25] MEDS: metFORMIN 500 MG TAB PO SCH ×2 (08:10→18:13)
[2017-10-25] MEDS: ATENOLOL 50 MG TAB PO SCH ×2 (08:10→21:14)
[2017-10-25] MEDS: cefTRIAXone IN SWFI 2,000 MG/20 ML SYRINGE IVP SCH (08:11)
[2017-10-25] MEDS: glipiZIDE 10 MG TAB PO SCH ×2 (08:11→18:13)
[2017-10-25] MEDS: LOSARTAN 25 MG TAB PO SCH (08:11)
[2017-10-25] MEDS: amLODIPine 10 MG TAB PO SCH (08:11)
[2017-10-25 08:51] LABS: Glucose,Whole Blood 114 mg/dL (75-99)
[2017-10-25 18:40] LABS: Glucose,Whole Blood 175 mg/dL (75-99)
[2017-10-25 20:41] LABS: Glucose,Whole Blood 236 mg/dL (75-99)
[2017-10-25] MEDS: DONEPEZIL 10 MG TAB PO SCH (21:14)
[2017-10-26 06:19] VITALS: BP 137/70; PULSE 66; RESP 20
[2017-10-26 07:04] LABS: Glucose,Whole Blood 141 mg/dL (75-99)
[2017-10-26] MEDS: amLODIPine 10 MG TAB PO SCH (07:46)
[2017-10-26] MEDS: cefTRIAXone IN SWFI 2,000 MG/20 ML SYRINGE IVP SCH (07:46)
[2017-10-26] MEDS: MAGNESIUM OXIDE 400 MG TAB PO SCH (07:46)
[2017-10-26] MEDS: ATENOLOL 50 MG TAB PO SCH (07:46)
[2017-10-26] MEDS: metFORMIN 500 MG TAB PO SCH (07:46)
[2017-10-26] MEDS: glipiZIDE 10 MG TAB PO SCH (07:46)
[2017-10-26] MEDS: LOSARTAN 25 MG TAB PO SCH (07:47)
[2017-10-26] MEDS: PANTOPRAZOLE 40 MG TABLET PO SCH (07:47)
[2017-10-26] MEDS: MEMANTINE 5 MG TAB PO SCH (07:47)
--- NOTE | 2017-10-26 07:54 | P.DS ---
Providers Date of admission: 10/21/17 15:23 Attending physician: Juan Vega Primary care physician: Juan Vega - Discharge Diagnosis(es) (1) Diabetes Current Visit: Yes Status: Chronic Priority: Medium (2) Dyspnea Current Visit: Yes Status: Acute Priority: High (3) Pneumonia Current Visit: Yes Status: Acute Priority: High Hospital Course: This is a discharge summary a 2-year-old white female essentially negative for left lower lobe pneumonia. The patient was treated with community acquired protocol and did quite well. No significant fever or chills on discharge are noted. She had a little bit of diarrhea. We will checks Clostridium difficile just to make sure she has not developed this. If this is negative, we will go ahead and discharge today and follow-up in about 2 weeks. Patient Condition at Discharge: Good Plan - Discharge Summary Discharge Rx Participant: No New Discharge Prescriptions: New Cefuroxime Axetil [Ceftin] 500 mg PO BID #14 tab Continue metFORMIN HCL [Glucophage] 500 mg PO AC-BID amLODIPine [Norvasc] 10 mg PO DAILY Donepezil [Aricept] 10 mg PO HS Losartan Potassium 75 mg PO DAILY Magnesium Oxide [Mag-Ox] 400 mg PO BID glipiZIDE [Glucotrol] 10 mg PO AC-BID Pantoprazole [Protonix] 40 mg PO DAILY Memantine [Namenda] 5 mg PO BID Atenolol [Tenormin] 50 mg PO BID Discharge Medication List Donepezil [Aricept] 10 mg PO HS 05/10/17 [History] Losartan Potassium 75 mg PO DAILY 05/10/17 [History] amLODIPine [Norvasc] 10 mg PO DAILY 05/10/17 [History] metFORMIN HCL [Glucophage] 500 mg PO AC-BID 05/10/17 [History] Atenolol [Tenormin] 50 mg PO BID 10/21/17 [History] Magnesium Oxide [Mag-Ox] 400 mg PO BID 10/21/17 [History] Memantine [Namenda] 5 mg PO BID 10/21/17 [History] Pantoprazole [Protonix] 40 mg PO DAILY 10/21/17 [History] glipiZIDE [Glucotrol] 10 mg PO AC-BID 10/21/17 [History] Cefuroxime Axetil [Ceftin] 500 mg PO BID #14 tab 10/25/17 [Rx] Follow up Appointment(s)/Referral(s): Juan Vega MD [Primary Care Provider] - 1 Week Patient Instructions/Handouts: Pneumonia (DC) Activity/Diet/Wound Care/Special Instructions: Cardiac, diabetic diet. Activity as tolerated, fall precautions. Discharge Disposition: HOME SELF-CARE
[2017-10-26 11:00] VITALS: TEMP 97.8
== END 2017-10-26 11:39 | DRG 195 ==
LOC: EC 10:33 → 4MS4W 15:23
PROVIDERS: ADMIT Family Medicine; ATTEND Family Medicine
DX: J18.9 Pneumonia, unspecified organism (principal); E11.9 Type 2 diabetes mellitus without complications; F03.90 Unspecified dementia, unspecified severity, without behavioral disturbance, psychotic disturbance, mood disturbance, and anxiety; N28.9 Disorder of kidney and ureter, unspecified; I10 Essential (primary) hypertension; R19.7 Diarrhea, unspecified; H91.10 Presbycusis, unspecified ear; Z79.84 Long term (current) use of oral hypoglycemic drugs; Z79.899 Other long term (current) drug therapy; Z86.19 Personal history of other infectious and parasitic diseases; Z90.49 Acquired absence of other specified parts of digestive tract; Z87.440 Personal history of urinary (tract) infections
CPT/HCPCS: 36415; 71046; 80053; 82550; 82553; 83880; 84484; 85025; 85027; 85610; 85730; 93005; 94760; 96374; 99285

== ENCOUNTER 2018-02-03 07:59 | Emergency (ER) | payer MEDICARE, BC ==
[2018-02-03] MEDS ORDERED: SODIUM CHLORIDE 0.9% 1,000 ML IV STA (08:23)
[2018-02-03] MEDS ORDERED: ACETAMINOPHEN TAB 500 MG TAB PO STA (08:24)
--- NOTE | 2018-02-03 08:31 | ED ---
Back Pain HPI - General Chief Complaint: Back Pain/Injury Stated Complaint: Abd Pain/Nausea Time Seen by Provider: 02/03/18 08:12 Source: patient, RN notes reviewed, old records reviewed Limitations: no limitations - History of Present Illness Initial Comments: Patient is a 82-year-old female presents emergency Department with her son chief complaint of left-sided abdominal pain and back pain. She can she maybe UTI. Patient has history of dementia and is a poor historian. She reports that she's been having the pain for a while, however the son stated they just told her today. Patient has had no recent antibiotics. Patient reports no fevers or chills. She reports she's had normal stools, some diarrhea. She denies any blood in her stools. No nausea or emesis. - Related Data Home Medications Medication Instructions Recorded Confirmed Donepezil [Aricept] 10 mg PO HS 05/10/17 10/21/17 Losartan Potassium 75 mg PO DAILY 05/10/17 10/21/17 amLODIPine [Norvasc] 10 mg PO DAILY 05/10/17 10/21/17 metFORMIN HCL [Glucophage] 500 mg PO AC-BID 05/10/17 10/21/17 Atenolol [Tenormin] 50 mg PO BID 10/21/17 10/21/17 Magnesium Oxide [Mag-Ox] 400 mg PO BID 10/21/17 10/21/17 Memantine [Namenda] 5 mg PO BID 10/21/17 10/21/17 Pantoprazole [Protonix] 40 mg PO DAILY 10/21/17 10/21/17 glipiZIDE [Glucotrol] 10 mg PO AC-BID 10/21/17 10/21/17 Previous Rx's Medication Instructions Recorded Cefuroxime Axetil [Ceftin] 500 mg PO BID #14 tab 10/25/17 Ciprofloxacin HCl [Cipro] 500 mg PO Q12HR 10 Days tab 02/03/18 metroNIDAZOLE [Flagyl] 500 mg PO TID #30 tab 02/03/18 Allergies Allergy/AdvReac Type Severity Reaction Status Date / Time No Known Allergies Allergy Verified 02/03/18 08:09 Review of Systems ROS Statement: Those systems with pertinent positive or pertinent negative responses have been documented in the HPI. ROS Other: All systems not noted in ROS Statement are negative. Past Medical History Past Medical History: Dementia, Diabetes Mellitus, Hypertension Additional Past Medical History / Comment(s): uti-ecoli History of Any Multi-Drug Resistant Organisms: ESBL Date of last positivie culture/infection: 05/10/17 MDRO Source:: URINE ESBL Past Surgical History: Cholecystectomy Past Anesthesia/Blood Transfusion Reactions: No Reported Reaction Past Psychological History: No Psychological Hx Reported Smoking Status: Never smoker Past Alcohol Use History: None Reported Past Drug Use History: None Reported - Past Family History Father History Unknown: Yes Mother History Unknown: Yes General Exam - General Exam Comments Initial Comments: 82-year-old female with history of dementia. Alert. Limitations: no limitations General appearance: alert, in no apparent distress Head exam: Present: atraumatic, normocephalic, normal inspection Eye exam: Present: normal appearance, PERRL, EOMI. Absent: scleral icterus, conjunctival injection, periorbital swelling ENT exam: Present: normal exam, mucous membranes moist Neck exam: Present: normal inspection. Absent: tenderness, meningismus, lymphadenopathy Respiratory exam: Present: normal lung sounds bilaterally. Absent: respiratory distress, wheezes, rales, rhonchi, stridor Cardiovascular Exam: Present: regular rate, normal rhythm, normal heart sounds. Absent: systolic murmur, diastolic murmur, rubs, gallop, clicks GI/Abdominal exam: Present: soft, tenderness (Lower quadrant tenderness.), normal bowel sounds. Absent: distended, guarding, rebound, rigid Extremities exam: Present: normal inspection, full ROM, normal capillary refill. Absent: tenderness, pedal edema, joint swelling, calf tenderness Back exam: Present: normal inspection Neurological exam: Present: alert, oriented X3, CN II-XII intact, normal gait Psychiatric exam: Present: normal affect, normal mood Skin exam: Present: warm, dry, intact, normal color. Absent: rash Course Vital Signs 02/03/18 08:07 Temperature 98.1 F Pulse Rate 56 L Respiratory 20 Rate Blood Pressure 174/74 O2 Sat by Pulse 97 Oximetry Medical Decision Making - Medical Decision Making Patient is an 82-year-old female presents emergency department today chief complaint of left sided abdominal pain radiates towards her back. Patient has history of dementia. Family's concern for UTI. We did a straight cath urine. No significant UTI. She has some left lower quadrant tenderness. At this time patient's labwork was reviewed and were also unremarkable. CT of the pelvis without contrast was completed. Evidence of diverticulitis. We'll start the Patient on Cipro and Flagyl. Patient will follow-up with PCP in the next 1-2 days. All questions answered return parameters were discussed. - Lab Data Result diagrams: 02/03/18 08:30 02/03/18 08:30 Lab Results 02/03/18 02/03/18 02/03/18 Range/Units 08:30 08:30 08:30 WBC 7.4 (3.8-10.6) k/uL RBC 4.61 (3.80-5.40) m/uL Hgb 12.9 (11.4-16.0) gm/dL Hct 39.5 (34.0-46.0) % MCV 85.7 (80.0-100.0) fL MCH 27.9 (25.0-35.0) pg MCHC 32.6 (31.0-37.0) g/dL RDW 14.9 (11.5-15.5) % Plt Count 284 (150-450) k/uL Neutrophils % 62 % Lymphocytes % 23 % Monocytes % 7 % Eosinophils % 6 % Basophils % 0 % Neutrophils # 4.6 (1.3-7.7) k/uL Lymphocytes # 1.7 (1.0-4.8) k/uL Monocytes # 0.5 (0-1.0) k/uL Eosinophils # 0.4 (0-0.7) k/uL Basophils # 0.0 (0-0.2) k/uL Sodium 139 (137-145) mmol/L Potassium 4.5 (3.5-5.1) mmol/L Chloride 101 (98-107) mmol/L Carbon Dioxide 27 (22-30) mmol/L Anion Gap 11 mmol/L BUN 20 H (7-17) mg/dL Creatinine 0.91 (0.52-1.04) mg/dL Est GFR (CKD-EPI)AfAm 67 (>60 ml/min/1.73 sqM) Est GFR (CKD-EPI)NonAf 58 (>60 ml/min/1.73 sqM) Glucose 163 H (74-99) mg/dL Calcium 9.5 (8.4-10.2) mg/dL Total Bilirubin 0.7 (0.2-1.3) mg/dL AST 27 (14-36) U/L ALT 25 (9-52) U/L Alkaline Phosphatase 71 (38-126) U/L Total Protein 6.8 (6.3-8.2) g/dL Albumin 4.0 (3.5-5.0) g/dL Amylase 48 (30-110) U/L Lipase 93 (23-300) U/L Urine Color Yellow Urine Appearance Clear (Clear) Urine pH 7.0 (5.0-8.0) Ur Specific Sophia 1.014 (1.001-1.035) Urine Protein 3+ H (Negative) Urine Glucose (UA) 3+ H (Negative) Urine Ketones Negative (Negative) Urine Blood Negative (Negative) Urine Nitrite Negative (Negative) Urine Bilirubin Negative (Negative) Urine Urobilinogen <2.0 (<2.0) mg/dL Ur Leukocyte Esterase Trace H (Negative) Urine RBC 1 (0-5) /hpf Urine WBC 7 H (0-5) /hpf Ur Squamous Epith Cells <1 (0-4) /hpf - Radiology Data Radiology results: report reviewed Stable findings with prior CT study with evidence of diverticulosis. Slight increased attenuation of mesenteric fat within the sigmoid region indicating inflammatory changes of diverticulitis. No drainable abscess. No unusual fluid collection. Appendix is not visual. No abnormal fat attenuation of the pericecal fat. It pruritic changes within the spine with vacuum phenomenon and osteo-arthritic spur formation. Arthritic changes of the hip joints. No free air bowel instruction. Disposition Clinical Impression: Diverticulitis Disposition: HOME SELF-CARE Condition: Good Instructions: Diverticulitis (ED), Diverticulitis Diet (ED) Additional Instructions: Patient advised to avoid any nuts or small foods that can be exacerbating that diverticulitis. Take all the antibiotics as prescribed. Follow-up with primary care provider in the next 1-2 days. Prescriptions: Ciprofloxacin HCl [Cipro] 500 mg PO Q12HR 10 Days tab metroNIDAZOLE [Flagyl] 500 mg PO TID #30 tab Is patient prescribed a controlled substance at d/c from ED?: No When asked, does pt state using other controlled substances?: No If prescribed controlled substance>3 days was MAPS reviewed?: No If opioid is for acute pain is fill amount 7 days or less?: No If Rx opioid, was Start Talking consent form obtained?: No Referrals: Juan Vega MD [Primary Care Provider] - 1-2 days Time of Disposition: 09:29
[2018-02-03 09:01] LABS: Basophils % (A) 0 %; Eosinophils # (A) 0.4 k/uL (0-0.7); Eosinophils % (A) 6 %; HCT 39.5 % (34.0-46.0); HGB 12.9 gm/dL (11.4-16.0); Lymphocytes # (A) 1.7 k/uL (1.0-4.8); Lymphocytes % (A) 23 %; MCH 27.9 pg (25.0-35.0); MCHC 32.6 g/dL (31.0-37.0); MCV 85.7 fL (80.0-100.0); Mean Platelet Volume 7.6; Monocytes # (A) 0.5 k/uL (0-1.0); Monocytes % (A) 7 %; Neutrophils # (A) 4.6 k/uL (1.3-7.7); Neutrophils % (A) 62 %; Platelet Count 284 k/uL (150-450); RBC 4.61 m/uL (3.80-5.40); RDW 14.9 % (11.5-15.5); WBC 7.4 k/uL (3.8-10.6)
[2018-02-03 09:11] LABS: Appearance,Urine Clear (Clear); Bilirubin,Urine Negative (Negative); Blood,Urine Negative (Negative); Calcium 9.5 mg/dL (8.4-10.2); Color,Urine Yellow; Glucose,Urine (UA) 3+ (Negative); Ketones,Urine Negative (Negative); Leukocyte Esterase,Urine Trace (Negative); Nitrite,Urine Negative (Negative); Potassium 4.5 mmol/L (3.5-5.1); Protein,Urine 3+ (Negative); RBC,Urine 1 /hpf (0-5); Specific Gravity,Urine 1.014 (1.001-1.035); Squamous Epithelial Cell,Urine <1 /hpf (0-4); Total Bilirubin 0.7 mg/dL (0.2-1.3); Total Protein 6.8 g/dL (6.3-8.2); Urobilinogen,Urine <2.0 mg/dL (<2.0); WBC,Urine 7 /hpf (0-5)
--- NOTE | 2018-02-03 09:25 | CT ---
EXAMINATION TYPE: CT abdomen pelvis wo con DATE OF EXAM: 02/03/2018 COMPARISON: Prior CT study dated 05/10/2017. HISTORY: LLQ pain CT DLP: 472.3 mGycm Automated exposure control for dose reduction was used. TECHNIQUE: Helical acquisition of images was performed from the lung bases through the pelvis. FINDINGS: LUNG BASES: No significant abnormality is appreciated. LIVER/GB: No significant abnormality is appreciated. Gallbladder is still not visualized. PANCREAS: No significant abnormality is seen. SPLEEN: No significant abnormality is seen. ADRENALS: No significant abnormality is seen. KIDNEYS: No significant abnormality is seen. FREE AIR: No free air is visualized RETROPERITONEAL ADENOPATHY: None visualized REPRODUCTIVE ORGANS: No significant abnormality is seen URINARY BLADDER: No significant abnormality is seen. PELVIC ADENOPATHY: None visualized. OSSEOUS STRUCTURES: No significant abnormality is seen. BOWEL: Appendix is not visualized. No abnormal attenuation of the pericecal fat. No free air or bowel obstruction. Scattered colonic diverticula are noted without abscess formation. Slight increased att enuation of the mesenteric fat within the sigmoid region suggestive of diverticulitis. No drainable a bscess. OTHER: Arthritic changes within the spine with osteophytic spur formation and vacuum film in about mu ltiple intervertebral disc spaces. Arthritic change in both hip joints. IMPRESSION: STABLE FINDINGS COMPARED WITH THE PRIOR CT STUDY WITH EVIDENCE OF DIVERTICULOSIS. SLIGHT INCREASED ATTENUATION OF THE MESENTERIC FAT WITHIN THE SIGMOID REGION INDICATING INFLAMMATORY CHANGES OF DIVER TICULITIS. NO DRAINABLE ABSCESS. NO UNUSUAL FLUID COLLECTION. APPENDIX IS NOT VISIBLE. NO ABNORMAL AT TENUATION OF THE PERICECAL FAT. ARTHRITIC CHANGES WITHIN THE SPINE WITH VACUUM PHENOMENON AND OSTEOPHYTIC SPUR FORMATION. ARTHRITIC C HANGES WITHIN THE HIP JOINTS. No free air or bowel obstruction.
[2018-02-03] MEDS ORDERED: CIPROFLOXACIN HCL 500 MG TAB PO STA (09:30)
[2018-02-03] MEDS ORDERED: metroNIDAZOLE 500 MG TAB PO STA (09:30)
[2018-02-03 09:51] VITALS: BP 162/74; PULSE 60; RESP 18; TEMP 98
== END 2018-02-03 09:51 | disposition home or self-care (01) ==
LOC: EC 07:59
DX: K57.92 Diverticulitis of intestine, part unspecified, without perforation or abscess without bleeding (principal); F03.90 Unspecified dementia, unspecified severity, without behavioral disturbance, psychotic disturbance, mood disturbance, and anxiety; E11.9 Type 2 diabetes mellitus without complications; I10 Essential (primary) hypertension; Z79.84 Long term (current) use of oral hypoglycemic drugs; Z79.899 Other long term (current) drug therapy; Z90.49 Acquired absence of other specified parts of digestive tract
CPT/HCPCS: 36415; 74176; 80053; 81001; 82150; 83690; 85025; 87086; 96360; 99284

== ENCOUNTER 2018-02-23 17:00 | Inpatient (IN) | payer MEDICARE, BC ==
--- NOTE | 2018-02-23 18:36 | CT ---
EXAMINATION TYPE: CT brain [facility] DATE OF EXAM: 02/23/2018 COMPARISON: None HISTORY: Multiple fall injuries headache and neck pain CT DLP: 1542.5 mGycm Automated exposure control for dose reduction was used. TECHNIQUE: CT scan of the head and cervical spine are performed without contrast. FINDINGS: There is cerebral cortical atrophy. There is no mass effect nor midline shift. There is n o sign of intracranial hemorrhage. The calvarium is intact. There is straightening of the cervical spine. There is degenerative disc space narrowing at C5-6 C6-7 with spurring of the endplates. There is multilevel hypertrophic cervical facet arthropathy. The [facility] ll base is intact. IMPRESSION: Cerebral atrophy. No acute intracranial abnormality. Spondylotic changes in the cervical spine. No fracture.
--- NOTE | 2018-02-23 18:49 | ED ---
General Adult HPI - General Chief complaint: Fall Stated complaint: Fall Time Seen by Provider: 02/23/18 17:12 Source: patient, EMS, RN notes reviewed, old records reviewed Mode of arrival: EMS Limitations: altered mental status - History of Present Illness Initial comments: 82-year-old female with history of dementia presents with fall and right shoulder injury. Patient states she slipped today falling onto her right shoulder. There is no head or neck trauma. Patient is not on anticoagulation. She is accompanied by her sons who state that over the past several days she is fallen 5 times. She's had increasing weakness. Patient currently lives alone and her sons are quite concerned. No history of vomiting or diarrhea. No complaints of chest pain or abdominal pain. No fever. Denies headache. Denies any focal weakness or numbness. - Related Data Home Medications Medication Instructions Recorded Confirmed Donepezil [Aricept] 10 mg PO HS 05/10/17 02/23/18 Losartan Potassium 75 mg PO DAILY 05/10/17 02/23/18 amLODIPine [Norvasc] 10 mg PO DAILY 05/10/17 02/23/18 metFORMIN HCL [Glucophage] 500 mg PO AC-BID 05/10/17 02/23/18 Atenolol [Tenormin] 50 mg PO BID 10/21/17 02/23/18 Magnesium Oxide [Mag-Ox] 400 mg PO BID 10/21/17 02/23/18 Memantine [Namenda] 5 mg PO BID 10/21/17 02/23/18 Pantoprazole [Protonix] 40 mg PO DAILY 10/21/17 02/23/18 glipiZIDE [Glucotrol] 10 mg PO AC-BID 10/21/17 02/23/18 sitaGLIPtin [Januvia] 100 mg PO DAILY 02/23/18 02/23/18 Allergies Allergy/AdvReac Type Severity Reaction Status Date / Time No Known Allergies Allergy Verified 02/23/18 18:33 Review of Systems ROS Statement: Those systems with pertinent positive or pertinent negative responses have been documented in the HPI. ROS Other: All systems not noted in ROS Statement are negative. Past Medical History Past Medical History: Dementia, Diabetes Mellitus, Hypertension Additional Past Medical History / Comment(s): uti-ecoli History of Any Multi-Drug Resistant Organisms: ESBL Date of last positivie culture/infection: 05/10/17 MDRO Source:: URINE ESBL Past Surgical History: Cholecystectomy Past Anesthesia/Blood Transfusion Reactions: No Reported Reaction Past Psychological History: No Psychological Hx Reported Smoking Status: Never smoker Past Alcohol Use History: None Reported Past Drug Use History: None Reported - Past Family History Father History Unknown: Yes Mother History Unknown: Yes General Exam Limitations: altered mental status General appearance: alert, in no apparent distress Head exam: Present: atraumatic, normocephalic Eye exam: Present: normal appearance, PERRL ENT exam: Present: mucous membranes dry Neck exam: Present: normal inspection, full ROM. Absent: tenderness, meningismus Respiratory exam: Present: normal lung sounds bilaterally. Absent: respiratory distress Cardiovascular Exam: Present: regular rate, normal rhythm GI/Abdominal exam: Present: soft. Absent: distended, tenderness, guarding, rebound Extremities exam: Present: normal inspection, normal capillary refill Back exam: Present: other ( ecchymosis over the right posterior shoulder, no bony tenderness) Neurological exam: Present: alert, oriented X3 Psychiatric exam: Present: normal affect, normal mood Skin exam: Present: warm, dry, intact. Absent: cyanosis, diaphoretic Course Vital Signs 02/23/18 02/23/18 17:02 19:47 Temperature 97.7 F 98.4 F Pulse Rate 57 L 54 L Respiratory 18 18 Rate Blood Pressure 147/76 152/67 O2 Sat by Pulse 97 96 Oximetry EKG Findings - EKG Comments: EKG Findings:: EKG: Sinus bradycardia, rate of 54, AK interval 150, QRS duration 82, QTC 419, no ST segment changes Medical Decision Making - Medical Decision Making 82-year-old presenting with multiple falls. X-rays obtained of the chest which is negative for acute cardiopulmonary disease or acute bony abnormality. X-ray of the shoulder negative for fracture or dislocation, x-ray of the pelvis negative for fracture or dislocation, x-ray of the right wrist where there is some ecchymosis is negative for acute fracture. CT of the head negative for intracranial hemorrhage or mass effect, CT cervical spine negative for fracture or subluxation. CBC, CMP is unremarkable. UA does show some signs of urinary tract infection. Urine culture is obtained and patient is started on antibiotics. She will be admitted for further evaluation and treatment. Case discussed with Dr. Vega who states except admission. - Lab Data Result diagrams: 02/23/18 18:35 02/23/18 18:35 Lab Results 02/23/18 02/23/18 02/23/18 Range/Units 18:35 18:35 18:35 WBC 9.1 (3.8-10.6) k/uL RBC 4.48 (3.80-5.40) m/uL Hgb 12.1 (11.4-16.0) gm/dL Hct 38.1 (34.0-46.0) % MCV 85.2 (80.0-100.0) fL MCH 27.0 (25.0-35.0) pg MCHC 31.6 (31.0-37.0) g/dL RDW 14.9 (11.5-15.5) % Plt Count 327 (150-450) k/uL Neutrophils % 75 % Lymphocytes % 13 % Monocytes % 7 % Eosinophils % 2 % Basophils % 0 % Neutrophils # 6.9 (1.3-7.7) k/uL Lymphocytes # 1.2 (1.0-4.8) k/uL Monocytes # 0.7 (0-1.0) k/uL Eosinophils # 0.2 (0-0.7) k/uL Basophils # 0.0 (0-0.2) k/uL Sodium 137 (137-145) mmol/L Potassium 5.2 H (3.5-5.1) mmol/L Chloride 102 (98-107) mmol/L Carbon Dioxide 29 (22-30) mmol/L Anion Gap 6 mmol/L BUN 28 H (7-17) mg/dL Creatinine 0.99 (0.52-1.04) mg/dL Est GFR (CKD-EPI)AfAm 61 (>60 ml/min/1.73 sqM) Est GFR (CKD-EPI)NonAf 53 (>60 ml/min/1.73 sqM) Glucose 237 H (74-99) mg/dL Calcium 8.9 (8.4-10.2) mg/dL Magnesium 2.2 (1.6-2.3) mg/dL Total Bilirubin 0.3 (0.2-1.3) mg/dL AST 32 (14-36) U/L ALT 35 (9-52) U/L Alkaline Phosphatase 62 (38-126) U/L Troponin I <0.012 (0.000-0.034) ng/mL Total Protein 5.8 L (6.3-8.2) g/dL Albumin 3.3 L (3.5-5.0) g/dL Urine Color Urine Appearance (Clear) Urine pH (5.0-8.0) Ur Specific [place] (1.001-1.035) Urine Protein (Negative) Urine Glucose (UA) (Negative) Urine Ketones (Negative) Urine Blood (Negative) Urine Nitrite (Negative) Urine Bilirubin (Negative) Urine Urobilinogen (<2.0) mg/dL Ur Leukocyte Esterase (Negative) Urine RBC (0-5) /hpf Urine WBC (0-5) /hpf 02/23/18 Range/Units 19:43 WBC (3.8-10.6) k/uL RBC (3.80-5.40) m/uL Hgb (11.4-16.0) gm/dL Hct (34.0-46.0) % MCV (80.0-100.0) fL MCH (25.0-35.0) pg MCHC (31.0-37.0) g/dL RDW (11.5-15.5) % Plt Count (150-450) k/uL Neutrophils % % Lymphocytes % % Monocytes % % Eosinophils % % Basophils % % Neutrophils # (1.3-7.7) k/uL Lymphocytes # (1.0-4.8) k/uL Monocytes # (0-1.0) k/uL Eosinophils # (0-0.7) k/uL Basophils # (0-0.2) k/uL Sodium (137-145) mmol/L Potassium (3.5-5.1) mmol/L Chloride (98-107) mmol/L Carbon Dioxide (22-30) mmol/L Anion Gap mmol/L BUN (7-17) mg/dL Creatinine (0.52-1.04) mg/dL Est GFR (CKD-EPI)AfAm (>60 ml/min/1.73 sqM) Est GFR (CKD-EPI)NonAf (>60 ml/min/1.73 sqM) Glucose (74-99) mg/dL Calcium (8.4-10.2) mg/dL Magnesium (1.6-2.3) mg/dL Total Bilirubin (0.2-1.3) mg/dL AST (14-36) U/L ALT (9-52) U/L Alkaline Phosphatase (38-126) U/L Troponin I (0.000-0.034) ng/mL Total Protein (6.3-8.2) g/dL Albumin (3.5-5.0) g/dL Urine Color Yellow Urine Appearance Clear (Clear) Urine pH 7.5 (5.0-8.0) Ur Specific [place] 1.013 (1.001-1.035) Urine Protein 2+ H (Negative) Urine Glucose (UA) 4+ H (Negative) Urine Ketones Negative (Negative) Urine Blood Negative (Negative) Urine Nitrite Negative (Negative) Urine Bilirubin Negative (Negative) Urine Urobilinogen <2.0 (<2.0) mg/dL Ur Leukocyte Esterase Large H (Negative) Urine RBC 8 H (0-5) /hpf Urine WBC 39 H (0-5) /hpf Disposition Clinical Impression: Fall, UTI (urinary tract infection), Multiple falls Disposition: ADMITTED IP TO THIS [facility] Condition: Stable Is patient prescribed a controlled substance at d/c from ED?: No Referrals: Juan Vega MD [Primary Care Provider] - 1-2 days Decision to Admit Reason: Admit from EC Decision Date: 02/23/18 Decision Time: 20:36
[2018-02-23 18:56] LABS: Basophils % (A) 0 %; Eosinophils # (A) 0.2 k/uL (0-0.7); Eosinophils % (A) 2 %; HCT 38.1 % (34.0-46.0); HGB 12.1 gm/dL (11.4-16.0); Lymphocytes # (A) 1.2 k/uL (1.0-4.8); Lymphocytes % (A) 13 %; MCHC 31.6 g/dL (31.0-37.0); MCV 85.2 fL (80.0-100.0); Monocytes # (A) 0.7 k/uL (0-1.0); Monocytes % (A) 7 %; Neutrophils # (A) 6.9 k/uL (1.3-7.7); Neutrophils % (A) 75 %; Platelet Count 327 k/uL (150-450); RBC 4.48 m/uL (3.80-5.40); RDW 14.9 % (11.5-15.5); WBC 9.1 k/uL (3.8-10.6)
[2018-02-23 19:06] LABS: Albumin 3.3 g/dL (3.5-5.0); Calcium 8.9 mg/dL (8.4-10.2); Magnesium 2.2 mg/dL (1.6-2.3); Potassium 5.2 mmol/L (3.5-5.1); Total Bilirubin 0.3 mg/dL (0.2-1.3); Total Protein 5.8 g/dL (6.3-8.2)
--- NOTE | 2018-02-23 19:28 | XR ---
EXAMINATION TYPE: XR wrist complete RT DATE OF EXAM: 02/23/2018 COMPARISON: NONE HISTORY: Wrist pain TECHNIQUE: 4 views FINDINGS: I see no fracture nor dislocation. There is vascular calcification. Joint spaces are fairly normal. There is minor spurring at the first carpometacarpal joint. IMPRESSION: Negative right wrist exam.
--- NOTE | 2018-02-23 19:30 | XR ---
EXAMINATION TYPE: XR pelvis AP view DATE OF EXAM: 02/23/2018 COMPARISON: NONE HISTORY: Pain TECHNIQUE: Single view FINDINGS: Pelvic ring is intact. There is spurring of the acetabula. There is severe narrowing of lef t hip joint space. Sacroiliac joints are intact. There is mild narrowing right hip joint space. IMPRESSION: No acute abnormality of the pelvis. No fracture.
--- NOTE | 2018-02-23 19:32 | XR ---
EXAMINATION TYPE: XR chest 2V DATE OF EXAM: 02/23/2018 COMPARISON: 10/21/2017 HISTORY: Weakness TECHNIQUE: Frontal and lateral views of the chest are obtained. FINDINGS: There is no heart failure nor confluent pneumonic infiltrate. Costophrenic angles are caleb r. Heart size is normal. Thoracic aorta is atheromatous. There is no sign of pleural effusion. IMPRESSION: No active cardiopulmonary disease. There is clearing of left lower lobe pneumonia compar ed to old exam.
--- NOTE | 2018-02-23 19:33 | XR ---
EXAMINATION TYPE: XR shoulder complete RT DATE OF EXAM: 02/23/2018 COMPARISON: NONE HISTORY: Shoulder pain TECHNIQUE: 3 views FINDINGS: There is narrowing and moderate spurring at the glenohumeral joint. I see no fracture nor d islocation. Acromioclavicular joint is intact. 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 No fracture.
[2018-02-23 19:52] LABS: Appearance,Urine Clear (Clear); Bilirubin,Urine Negative (Negative); Blood,Urine Negative (Negative); Color,Urine Yellow; Glucose,Urine (UA) 4+ (Negative); Ketones,Urine Negative (Negative); Leukocyte Esterase,Urine Large (Negative); Nitrite,Urine Negative (Negative); PH, Urine 7.5 (5.0-8.0); Protein,Urine 2+ (Negative); RBC,Urine 8 /hpf (0-5); Specific Gravity,Urine 1.013 (1.001-1.035); Urobilinogen,Urine <2.0 mg/dL (<2.0); WBC,Urine 39 /hpf (0-5)
[2018-02-23] MEDS ORDERED: ONDANSETRON 4 MG/2 ML VIAL IVP PRN (20:28)
[2018-02-23] MEDS ORDERED: ACETAMINOPHEN TAB 325 MG TAB PO PRN (20:28)
[2018-02-23] MEDS ORDERED: NALOXONE 0.4 MG/ML 1 ML VIAL IV PRN (20:28)
[2018-02-23] MEDS ORDERED: cefTRIAXone IN SWFI 1,000 MG/10 ML SYRINGE IVP STA (20:34)
[2018-02-23] MEDS: SODIUM CHLORIDE 0.9% 1,000 ML IV SCH (21:05)
[2018-02-23 21:37] VITALS: RESP 16
[2018-02-23] MEDS: MAGNESIUM OXIDE 400 MG TAB PO SCH (21:49)
[2018-02-23] MEDS: ATENOLOL 50 MG TAB PO SCH (21:49)
[2018-02-23] MEDS: MEMANTINE 5 MG TAB PO SCH (21:49)
[2018-02-23 22:41] VITALS: BMI 28.3
[2018-02-24] MEDS: metFORMIN 500 MG TAB PO SCH ×2 (08:20→16:38)
[2018-02-24] MEDS: MAGNESIUM OXIDE 400 MG TAB PO SCH ×2 (08:21→21:50)
[2018-02-24] MEDS: ATENOLOL 50 MG TAB PO SCH ×2 (08:21→21:49)
[2018-02-24] MEDS: amLODIPine 10 MG TAB PO SCH (08:21)
[2018-02-24] MEDS: glipiZIDE 10 MG TAB PO SCH ×2 (08:21→16:37)
[2018-02-24] MEDS: MEMANTINE 5 MG TAB PO SCH ×2 (08:22→21:50)
[2018-02-24] MEDS ORDERED: LOSARTAN 25 MG TAB PO SCH (09:00)
--- NOTE | 2018-02-24 11:04 | P.HPIM ---
History of Present Illness 82-year-old female with history of dementia presents with fall and right shoulder injury. Patient states she slipped today falling onto her right shoulder. There is no head or neck trauma. Patient is not on anticoagulation. She is accompanied by her sons who state that over the past several days she is fallen 5 times. She's had increasing weakness. Patient currently lives alone and her sons are quite concerned. No history of vomiting or diarrhea. No complaints of chest pain or abdominal pain. No fever. Denies headache. Denies any focal weakness or numbness. She doesn't have any increased confusion but patient will require subacute rehabilitation patient is alert oriented 1-2 patient does have confabulation appears to have advanced dementia will need placement patient is falling because of weakness from dementia all the imaging is so for negative. Urine is bit abnormal but my suspicion is low for her UTI since I cannot completely rule out CORD and the continue with antibiotic. Patient will need placement Review of Systems All other systems are negative patient denied any dysuria although not a reliable historian Past Medical History Past Medical History: Dementia, Diabetes Mellitus, Hypertension Additional Past Medical History / Comment(s): uti-ecoli History of Any Multi-Drug Resistant Organisms: ESBL Date of last positivie culture/infection: 05/10/17 MDRO Source:: URINE ESBL Past Surgical History: Cholecystectomy Past Anesthesia/Blood Transfusion Reactions: No Reported Reaction Past Psychological History: No Psychological Hx Reported Additional Psychological History / Comment(s): pt lives with her 2 sons. she no longer drives they take to appts has glucometer stated her son checks bs Smoking Status: Never smoker Past Alcohol Use History: None Reported Past Drug Use History: None Reported - Past Family History Father History Unknown: Yes Mother History Unknown: Yes Medications and Allergies Home Medications Medication Instructions Recorded Confirmed Type Donepezil [Aricept] 10 mg PO HS 05/10/17 02/23/18 History Losartan Potassium 75 mg PO DAILY 05/10/17 02/23/18 History amLODIPine [Norvasc] 10 mg PO DAILY 05/10/17 02/23/18 History metFORMIN HCL [Glucophage] 500 mg PO AC-BID 05/10/17 02/23/18 History Atenolol [Tenormin] 50 mg PO BID 10/21/17 02/23/18 History Magnesium Oxide [Mag-Ox] 400 mg PO BID 10/21/17 02/23/18 History Memantine [Namenda] 5 mg PO BID 10/21/17 02/23/18 History Pantoprazole [Protonix] 40 mg PO DAILY 10/21/17 02/23/18 History glipiZIDE [Glucotrol] 10 mg PO AC-BID 10/21/17 02/23/18 History sitaGLIPtin [Januvia] 100 mg PO DAILY 02/23/18 02/23/18 History Allergies Allergy/AdvReac Type Severity Reaction Status Date / Time No Known Allergies Allergy Verified 02/23/18 18:33 Physical Exam Vitals: Vital Signs Temp Pulse Pulse Resp BP BP Pulse Ox 02/24/18 05:23 98.2 F 60 16 174/75 94 L 02/23/18 21:36 97.8 F 56 L 16 174/97 97 02/23/18 20:54 54 L 18 148/73 97 02/23/18 19:47 98.4 F 54 L 18 152/67 96 02/23/18 17:02 97.7 F 57 L 18 147/76 97 Intake and Output 02/23/18 02/24/18 02/24/18 22:59 06:59 14:59 Other: Voiding Method Diaper Diaper Incontinent # Voids 2 Weight 74.843 kg 74.843 kg PHYSICAL EXAMINATION: GENERAL: The patient is alert and oriented x1-2, not in any acute distress. Well developed, well nourished. HEENT: Pupils are round and equally reacting to light. EOMI. No scleral icterus. No conjunctival pallor. Normocephalic, atraumatic. No pharyngeal erythema. No thyromegaly. CARDIOVASCULAR: S1 and S2 present. No murmurs, rubs, or gallops. PULMONARY: Chest is clear to auscultation, no wheezing or crackles. ABDOMEN: Soft, nontender, nondistended, normoactive bowel sounds. No palpable organomegaly. MUSCULOSKELETAL: No joint swelling or deformity. EXTREMITIES: No cyanosis, clubbing, or pedal edema. NEUROLOGICAL: Gross neurological examination did not reveal any focal deficits. SKIN: No rashes. Results CBC & Chem 7: 02/23/18 18:35 02/23/18 18:35 Labs: Abnormal Lab Results - Last 24 Hours (Table) 02/23/18 02/23/18 Range/Units 18:35 19:43 Potassium 5.2 H (3.5-5.1) mmol/L BUN 28 H (7-17) mg/dL Glucose 237 H (74-99) mg/dL Total Protein 5.8 L (6.3-8.2) g/dL Albumin 3.3 L (3.5-5.0) g/dL Urine Protein 2+ H (Negative) Urine Glucose (UA) 4+ H (Negative) Ur Leukocyte Esterase Large H (Negative) Urine RBC 8 H (0-5) /hpf Urine WBC 39 H (0-5) /hpf Microbiology - Last 24 Hours (Table) 02/23/18 20:53 Urine Culture - Preliminary Urine,Catheterized Thrombosis Risk Factor Assmnt - Choose All That Apply Each Factor Represents 1 point: Obesity (BMI >25) Other Risk Factors: Yes Each Risk Factor Represents 3 Points: Age 75 years or older Thrombosis Risk Factor Assessment Total Risk Factor Score: 4 Thrombosis Risk Factor Assessment Level: Moderate Risk Assessment and Plan Plan: Fall: Secondary to generalized weakness advanced dementia PT and OT was consulted patient will need subacute rehabilitation. -Low possibly of urinary tract infection continue with Rocephin for now, patient will complete that therapy for 3 days after which it will be discontinued tomorrow -Advanced dementia, either vascular dementia or Alzheimer's dementia. -Hypertension -Type 2 diabetes mellitus for above-mentioned chronic medical problems patient will be resumed and continued on appropriate home medications.
[2018-02-24 11:29] LABS: Glucose,Whole Blood 335 mg/dL (75-99)
[2018-02-24] MEDS: SODIUM CHLORIDE 0.9% 1,000 ML IV SCH (16:09)
[2018-02-24 16:59] LABS: Glucose,Whole Blood 290 mg/dL (75-99)
[2018-02-24] MEDS: INSULIN ASPART 100 UNIT/ML 1 ML 10 ML VIAL SQ SCH ×2 (17:39→21:50)
[2018-02-24 19:56] LABS: Glucose,Whole Blood 246 mg/dL (75-99)
[2018-02-25 07:11] LABS: Glucose,Whole Blood 189 mg/dL (75-99)
[2018-02-25] MEDS: metFORMIN 500 MG TAB PO SCH ×2 (07:18→17:37)
[2018-02-25] MEDS: glipiZIDE 10 MG TAB PO SCH ×2 (07:18→17:37)
[2018-02-25] MEDS: INSULIN ASPART 100 UNIT/ML 1 ML 10 ML VIAL SQ SCH ×4 (07:50→21:03)
[2018-02-25] MEDS: MEMANTINE 5 MG TAB PO SCH ×2 (07:52→20:34)
[2018-02-25] MEDS: ATENOLOL 50 MG TAB PO SCH (07:52)
[2018-02-25] MEDS: amLODIPine 10 MG TAB PO SCH (07:52)
[2018-02-25] MEDS: MAGNESIUM OXIDE 400 MG TAB PO SCH ×2 (07:52→20:34)
[2018-02-25 11:01] LABS: Glucose,Whole Blood 177 mg/dL (75-99)
--- NOTE | 2018-02-25 12:01 | P.PN ---
Subjective 83-year-old female advanced dementia admitted after a fall. Patient will [facility]. Patient is bit dehydrated pulling out IV lines will increase her to drink water by mouth. Patient will be started on DVT prophylaxis with heparin subcutaneous. Objective - Vital Signs Vital signs: Vital Signs Temp 97.9 F 02/25/18 05:00 Pulse 64 02/25/18 07:00 Resp 16 02/25/18 07:00 BP 168/74 02/25/18 05:00 Pulse Ox 96 02/25/18 05:00 Intake & Output 02/24/18 02/25/18 02/25/18 18:59 06:59 18:59 Intake Total 1450 1180 Balance 1450 1180 Weight 74.843 kg Intake: Intake, IV Titration 600 Amount Sodium Chloride 0.9% 1, 600 000 ml @ 50 mls/hr IV . Q20H [facility] Rx#:[id number] Oral 850 1180 Other: Voiding Method Diaper Diaper Diaper Incontinent Incontinent Incontinent # Voids 1 2 1 # Bowel Movements 1 - Exam PHYSICAL EXAMINATION: GENERAL: The patient is alert and oriented x1-2, not in any acute distress. Well developed, well nourished. HEENT: Pupils are round and equally reacting to light. EOMI. No scleral icterus. No conjunctival pallor. Normocephalic, atraumatic. No pharyngeal erythema. No thyromegaly. CARDIOVASCULAR: S1 and S2 present. No murmurs, rubs, or gallops. PULMONARY: Chest is clear to auscultation, no wheezing or crackles. ABDOMEN: Soft, nontender, nondistended, normoactive bowel sounds. No palpable organomegaly. MUSCULOSKELETAL: No joint swelling or deformity. EXTREMITIES: No cyanosis, clubbing, or pedal edema. NEUROLOGICAL: Gross neurological examination did not reveal any focal deficits. SKIN: No rashes. - Labs CBC & Chem 7: 02/23/18 18:35 02/23/18 18:35 Labs: Abnormal Lab Results - Last 24 Hours (Table) 02/24/18 02/24/18 02/25/18 Range/Units 16:56 19:54 07:09 POC Glucose (mg/dL) 290 H 246 H 189 H (75-99) mg/dL 02/25/18 Range/Units 10:58 POC Glucose (mg/dL) 177 H (75-99) mg/dL Microbiology - Last 24 Hours (Table) 02/23/18 20:59 Blood Culture - Preliminary Blood No Growth after 24 hours 02/23/18 20:53 Urine Culture - Final Urine,Catheterized Assessment and Plan Plan: Fall: Secondary to generalized weakness advanced dementia, disposition to penitentiary. -Low possibly of urinary tract infection continue with Rocephin for now, she completed 3 day of therapy and the Rocephin will be discontinued -Advanced dementia, either vascular dementia or Alzheimer's dementia. -Hypertension -Type 2 diabetes mellitus
[2018-02-25 17:01] LABS: Glucose,Whole Blood 271 mg/dL (75-99)
[2018-02-25 20:23] LABS: Hemoglobin A1C 9.2 % (4.0-6.0)
[2018-02-25] MEDS: HEPARIN SODIUM,PORCINE 5,000 UNIT/ML 1 ML VIAL SQ SCH (20:36)
[2018-02-25 20:55] LABS: Glucose,Whole Blood 189 mg/dL (75-99)
[2018-02-26 07:10] LABS: Glucose,Whole Blood 85 mg/dL (75-99)
[2018-02-26 08:03] LABS: Calcium 8.6 mg/dL (8.4-10.2); Potassium 4.3 mmol/L (3.5-5.1)
[2018-02-26] MEDS: INSULIN ASPART 100 UNIT/ML 1 ML 10 ML VIAL SQ SCH ×4 (09:05→21:00)
[2018-02-26] MEDS: amLODIPine 10 MG TAB PO SCH (09:09)
[2018-02-26] MEDS: glipiZIDE 10 MG TAB PO SCH ×2 (09:09→17:28)
[2018-02-26] MEDS: MAGNESIUM OXIDE 400 MG TAB PO SCH ×2 (09:09→20:55)
[2018-02-26] MEDS: metFORMIN 500 MG TAB PO SCH ×2 (09:09→17:28)
[2018-02-26] MEDS: ATENOLOL 50 MG TAB PO SCH (09:09)
[2018-02-26] MEDS: MEMANTINE 5 MG TAB PO SCH ×2 (09:10→20:55)
[2018-02-26] MEDS: HEPARIN SODIUM,PORCINE 5,000 UNIT/ML 1 ML VIAL SQ SCH ×2 (09:10→20:55)
[2018-02-26] MEDS: CEFUROXIME 250 MG TAB PO SCH ×2 (11:32→20:55)
[2018-02-26 11:43] LABS: Glucose,Whole Blood 118 mg/dL (75-99)
[2018-02-26 17:18] LABS: Glucose,Whole Blood 231 mg/dL (75-99)
--- NOTE | 2018-02-26 18:55 | PN ---
PROGRESS NOTE DATE OF SERVICE: 02/26/2018 This 82-year-old woman who was admitted with fall secondary to generalized weakness also had dementia. The patient being closely monitored. PT/OT evaluation. Possible ECF rehab. No chest pain. No palpitations. No fever. EXAM: Alert and oriented x1. Pulse 55, blood pressure 155/70, respirations 16, temperature 98.2, pulse ox 94% on room air. HEENT is conjunctivae normal. Oral mucosa moist. Neck is no jugular venous distention. No carotid bruit. No lymph node enlargement. Cardiovascular: S1, S2 muffled. Respirations: Breath sounds diminished in the bases. No rhonchi. No crackles. ABDOMEN: Soft. Nontender. Legs: No edema. No swelling. Central nervous system: No focal deficits. LABS: Glucose 118. CBC within normal limits. UA noted. ASSESSMENT: 1. Fall secondary to generalized weakness and dementia. 2. Urinary tract infection. 3. Advanced dementia. 4. Hypertension. 5. Diabetes type 2. RECOMMENDATIONS AND DISCUSSION: Recommend to continue current medications, management and symptomatic treatment. Otherwise, at this time, I recommend continue with Ceftin. PT/OT evaluation. Resume the home medications and possible ECF rehab. Guarded prognosis. Further recommendations to follow. Monitor the blood sugars closely. MMODL / IJN: [id number] /
[2018-02-26 19:54] LABS: Glucose,Whole Blood 211 mg/dL (75-99)
[2018-02-26] MEDS ORDERED: DONEPEZIL 10 MG TAB PO SCH (21:00)
[2018-02-27 06:23] VITALS: BP 178/78; PULSE 63; TEMP 9822
[2018-02-27] MEDS: INSULIN ASPART 100 UNIT/ML 1 ML 10 ML VIAL SQ SCH ×2 (07:03→12:36)
[2018-02-27] MEDS ORDERED: PANTOPRAZOLE 40 MG TABLET PO SCH (07:30)
[2018-02-27] MEDS: glipiZIDE 10 MG TAB PO SCH (07:48)
[2018-02-27] MEDS: ATENOLOL 50 MG TAB PO SCH (07:48)
[2018-02-27] MEDS: CEFUROXIME 250 MG TAB PO SCH (07:48)
[2018-02-27] MEDS: metFORMIN 500 MG TAB PO SCH (07:48)
[2018-02-27] MEDS: MAGNESIUM OXIDE 400 MG TAB PO SCH (07:48)
[2018-02-27] MEDS: amLODIPine 10 MG TAB PO SCH (07:48)
[2018-02-27] MEDS: HEPARIN SODIUM,PORCINE 5,000 UNIT/ML 1 ML VIAL SQ SCH (07:49)
[2018-02-27] MEDS: MEMANTINE 5 MG TAB PO SCH (07:49)
[2018-02-27 07:51] LABS: Glucose,Whole Blood 91 mg/dL (75-99)
[2018-02-27 07:51] LABS: Glucose,Whole Blood 69 mg/dL (75-99)
[2018-02-27] MEDS ORDERED: LINAGLIPTIN 5 MG TABLET PO SCH (09:00)
--- NOTE | 2018-02-27 10:22 | P.DS ---
Providers Date of admission: 02/24/18 12:49 Attending physician: Juan Vega Primary care physician: Juan Vega Hospital Course: Final diagnosis Fall secondary to generalized weakness and dementia UTI Advanced dementia Hypertension Severe gait dysfunction diabetes mellitus type 2 full code Hospital course this 82-year-old woman with a past medical history of multiple medical problems being followed by Dr. Vega in the outpatient setting was admitted with the fall and generalized weakness and dementia. Patient also had features of UTI. Patient was treated with antibiotics. Patient improved significantly. Patient be transferred to [facility] for rehab at this time. Total time taken 35 minutes. Discuss with staff and case management. On exam vitals are stable. Cardio S1 and S2 normal. No murmur nervous system system diffusely weak. I would recommend the patient to follow-up with Dr. Wharton and [facility] and also Dr. Vega as an outpatient. Please take a follow up appointment with Dr. Vega after discharge from [facility] Patient Condition at Discharge: Stable Plan - Discharge Summary Discharge Rx Participant: No New Discharge Prescriptions: New Acetaminophen Tab [Tylenol] 650 mg PO Q6HR PRN tab PRN Reason: Mild Pain Or Fever > 100.5 Cefuroxime [Ceftin] 500 mg PO BID #8 tab INSULIN LISPRO (HumaLOG) [humaLOG] 0 unit SQ ACHS #1 vial Continue metFORMIN HCL [Glucophage] 500 mg PO AC-BID amLODIPine [Norvasc] 10 mg PO DAILY Donepezil [Aricept] 10 mg PO HS Losartan Potassium 75 mg PO DAILY Magnesium Oxide [Mag-Ox] 400 mg PO BID glipiZIDE [Glucotrol] 10 mg PO AC-BID Pantoprazole [Protonix] 40 mg PO DAILY Memantine [Namenda] 5 mg PO BID Atenolol [Tenormin] 50 mg PO BID sitaGLIPtin [Januvia] 100 mg PO DAILY Discharge Medication List Donepezil [Aricept] 10 mg PO HS 05/10/17 [History] Losartan Potassium 75 mg PO DAILY 05/10/17 [History] amLODIPine [Norvasc] 10 mg PO DAILY 05/10/17 [History] metFORMIN HCL [Glucophage] 500 mg PO AC-BID 05/10/17 [History] Atenolol [Tenormin] 50 mg PO BID 10/21/17 [History] Magnesium Oxide [Mag-Ox] 400 mg PO BID 10/21/17 [History] Memantine [Namenda] 5 mg PO BID 10/21/17 [History] Pantoprazole [Protonix] 40 mg PO DAILY 10/21/17 [History] glipiZIDE [Glucotrol] 10 mg PO AC-BID 10/21/17 [History] sitaGLIPtin [Januvia] 100 mg PO DAILY 02/23/18 [History] Acetaminophen Tab [Tylenol] 650 mg PO Q6HR PRN tab 02/27/18 [Rx] Cefuroxime [Ceftin] 500 mg PO BID #8 tab 02/27/18 [Rx] INSULIN LISPRO (HumaLOG) [humaLOG] 0 unit SQ ACHS #1 vial 02/27/18 [Rx] Follow up Appointment(s)/Referral(s): Juan Vega MD [Primary Care Provider] - 1-2 days Yuan Wharton MD [STAFF PHYSICIAN] - 1 Week Activity/Diet/Wound Care/Special Instructions: Diet consistent carb Activity as tolerated Accu-Cheks before meals and at bedtime and insulin scale Follow-up with Dr. Vega after discharge from [facility]
[2018-02-27 11:35] LABS: Glucose,Whole Blood 201 mg/dL (75-99)
== END 2018-02-27 15:09 | DRG 884 ==
LOC: EC 17:00 → 5MS5E 20:37 → INTOOBSV 20:37 → OBSVTOIN 02-24 12:49
PROVIDERS: ADMIT Family Medicine; ATTEND Family Medicine
DX: F01.50 Vascular dementia, unspecified severity, without behavioral disturbance, psychotic disturbance, mood disturbance, and anxiety (principal); N39.0 Urinary tract infection, site not specified; G30.9 Alzheimer's disease, unspecified; R29.6 Repeated falls; F03.90 Unspecified dementia, unspecified severity, without behavioral disturbance, psychotic disturbance, mood disturbance, and anxiety; W01.0XXA Fall on same level from slipping, tripping and stumbling without subsequent striking against object, initial encounter; E11.9 Type 2 diabetes mellitus without complications; I10 Essential (primary) hypertension; E86.0 Dehydration; F02.80 Dementia in other diseases classified elsewhere, unspecified severity, without behavioral disturbance, psychotic disturbance, mood disturbance, and anxiety; R26.9 Unspecified abnormalities of gait and mobility; Z87.440 Personal history of urinary (tract) infections; Z90.49 Acquired absence of other specified parts of digestive tract; Z79.84 Long term (current) use of oral hypoglycemic drugs; Z79.899 Other long term (current) drug therapy
CPT/HCPCS: 36415; 70450; 71046; 72125; 72170; 80048; 80053; 81001; 83036; 83735; 84484; 85025; 87040; 87086; 93005; 99285

== ENCOUNTER 2018-06-04 21:07 | Emergency (ER) | payer MEDICARE, BC ==
[2018-06-04] MEDS ORDERED: ALBUTEROL NEBULIZED 2.5 MG/3 ML INHALATION STA (21:23)
[2018-06-04] MEDS ORDERED: MORPHINE SULFATE 4 MG/ML SYRINGE IV STA (21:23)
[2018-06-04 21:25] VITALS: TEMP 98.8
--- NOTE | 2018-06-04 21:28 | ED ---
Fall HPI - General Stated Complaint: hip pain Time Seen by Provider: 06/04/18 21:16 Source: patient, EMS Limitations: physical limitation (Patient does appear to have some underlying dementia) - History of Present Illness Initial Comments: This patient is an 83-year-old woman transferred from alf to be evaluated after she had a fall at the alf. I was reported that she was then not able to get up and was complaining of pain in the left leg. When I interview the patient, she indicates the left hip area. She is denying other complaints. She denies head or neck pain, chest, back or abdomen pain. MD Complaint: fall -: hour(s) Fall From: standing Place Fall Occurred: alf/SNF Loss of Consciousness: none Prolonged Down Time?: no Location - Extremities: Left: Leg Severity: moderate Context: tripped/slipped - Related Data Home Medications Medication Instructions Recorded Confirmed Donepezil [Aricept] 10 mg PO HS 05/10/17 06/04/18 Losartan Potassium 50 mg PO DAILY 05/10/17 06/04/18 amLODIPine [Norvasc] 10 mg PO DAILY 05/10/17 06/04/18 metFORMIN HCL [Glucophage] 500 mg PO AC-BID 05/10/17 06/04/18 Magnesium Oxide [Mag-Ox] 400 mg PO BID 10/21/17 06/04/18 Memantine [Namenda] 5 mg PO BID 10/21/17 06/04/18 Pantoprazole [Protonix] 40 mg PO DAILY 10/21/17 06/04/18 Atenolol 100 mg PO DAILY 06/04/18 06/04/18 Insulin Aspart [NovoLOG See Protocol SQ ACHS 06/04/18 06/04/18 (formulary)] Liraglutide [Victoza 2-Lorenzo] 0.6 mg SQ DAILY 06/04/18 06/04/18 Losartan [Cozaar] 25 mg PO DAILY 06/04/18 06/04/18 guaiFENesin SYRUP 100MG/5ML 200 mg PO Q4H PRN 06/04/18 06/04/18 [Robitussin] Previous Rx's Medication Instructions Recorded Acetaminophen Tab [Tylenol] 650 mg PO Q6HR PRN tab 02/27/18 Allergies Allergy/AdvReac Type Severity Reaction Status Date / Time No Known Allergies Allergy Verified 06/04/18 21:25 Review of Systems ROS Statement: Those systems with pertinent positive or pertinent negative responses have been documented in the HPI. ROS Other: All systems not noted in ROS Statement are negative. Limitations: ROS unobtainable due to patients medical condition (Underlying dementia) Respiratory: Denies: dyspnea Cardiovascular: Denies: chest pain Gastrointestinal: Denies: abdominal pain Musculoskeletal: Reports: as per HPI, arthralgia (Left hip). Denies: back pain Neurological: Denies: headache Past Medical History Past Medical History: Dementia, Diabetes Mellitus, Hypertension Additional Past Medical History / Comment(s): uti-ecoli History of Any Multi-Drug Resistant Organisms: ESBL Date of last positivie culture/infection: 05/10/17 MDRO Source:: URINE ESBL Past Surgical History: Cholecystectomy Past Anesthesia/Blood Transfusion Reactions: No Reported Reaction Past Psychological History: No Psychological Hx Reported Additional Psychological History / Comment(s): pt lives with her 2 sons. she no longer drives they take to appts has glucometer stated her son checks bs Smoking Status: Never smoker Past Alcohol Use History: None Reported Past Drug Use History: None Reported - Past Family History Father History Unknown: Yes Mother History Unknown: Yes General Exam General appearance: alert, in no apparent distress Head exam: Present: atraumatic, normocephalic Eye exam: Present: normal appearance. Absent: scleral icterus, conjunctival injection Neck exam: Present: normal inspection, full ROM. Absent: tenderness Respiratory exam: Present: wheezes. Absent: respiratory distress, rales, rhonchi, stridor, chest wall tenderness, accessory muscle use, decreased breath sounds, prolonged expiratory Cardiovascular Exam: Present: regular rate, normal rhythm, normal heart sounds. Absent: systolic murmur, diastolic murmur, rubs, gallop GI/Abdominal exam: Present: soft. Absent: distended, tenderness, guarding, rebound, rigid, mass Extremities exam: Present: tenderness (Left hip), normal capillary refill, other (There does appear to be shortening of the left leg. There is decreased range of motion at the left hip due to pain). Absent: full ROM (Left hip) Back exam: Absent: tenderness Neurological exam: Present: alert. Absent: oriented X3 (Patient is oriented only to person), motor sensory deficit Skin exam: Present: warm, dry, intact, normal color. Absent: rash Course Vital Signs 06/04/18 06/04/18 06/04/18 21:09 22:02 22:10 Temperature 98.8 F Pulse Rate 79 99 78 Respiratory 18 18 20 Rate Blood Pressure 153/74 O2 Sat by Pulse 96 Oximetry 06/04/18 06/04/18 22:30 23:15 Temperature Pulse Rate 84 82 Respiratory 16 18 Rate Blood Pressure 143/69 152/64 O2 Sat by Pulse 95 95 Oximetry Medical Decision Making - Medical Decision Making Patient is an 83-year-old woman in from the alf to be evaluated for possible hip injury after a fall. The x-rays are negative. The patient is able to support weight to transfer. Patient's sons are here and state that she does appear to be at baseline. Patient will be transferred back to alf. Disposition Clinical Impression: Fall Disposition: HOME SELF-CARE Condition: Fair Instructions: Fall Prevention for Older Adults (ED) Is patient prescribed a controlled substance at d/c from ED?: No Referrals: Juan Vega MD [Primary Care Provider] - 1-2 days
--- NOTE | 2018-06-04 21:57 | XR ---
EXAMINATION TYPE: XR Hip LT and AP Pelvis DATE OF EXAM: 06/04/2018 COMPARISON: 02/23/2018 HISTORY: Pain TECHNIQUE: A single AP view of the pelvis is obtained. Two views of the left hip are obtained. FINDINGS: There is severe narrowing of the left hip joint space. Pelvic ring is intact. Proximal lef t femur is intact. There is spurring on the left femoral head. There is minor spurring at the right h ip joint. Sacroiliac joints are intact. IMPRESSION: Severe osteoarthritis left hip joint. No significant change. No fracture seen.
--- NOTE | 2018-06-04 22:49 | XR ---
EXAMINATION TYPE: XR femur LT DATE OF EXAM: 06/04/2018 COMPARISON: NONE HISTORY: Fall. Pain TECHNIQUE: 4 views FINDINGS: There is severe narrowing of the left hip joint space. There is moderate narrowing of the k nee joint spaces with spurring of the femoral and tibial condyles. There is spurring on the acetabulu m. There is spurring on the patella. IMPRESSION: Osteoarthritis in the left hip joint and left knee. No fracture seen.
--- NOTE | 2018-06-04 22:51 | XR ---
EXAMINATION TYPE: XR chest 2V DATE OF EXAM: 06/04/2018 COMPARISON: 02/23/2018 HISTORY: Fall. Cough. TECHNIQUE: Frontal and lateral views of the chest are obtained. FINDINGS: There is no heart failure nor confluent pneumonic infiltrate. Costophrenic angles are caleb r. Thoracic aorta is atheromatous. There is spurring in the thoracic spine. IMPRESSION: No active cardiopulmonary disease. Atheromatous aorta. Normal heart. No change.
[2018-06-04 23:20] VITALS: BP 152/64; PULSE 82; RESP 18
== END 2018-06-04 23:55 | disposition home or self-care (01) ==
LOC: EC 21:07
DX: M25.552 Pain in left hip (principal); R06.2 Wheezing; F03.90 Unspecified dementia, unspecified severity, without behavioral disturbance, psychotic disturbance, mood disturbance, and anxiety; I10 Essential (primary) hypertension; E11.9 Type 2 diabetes mellitus without complications; Z79.4 Long term (current) use of insulin; Z79.899 Other long term (current) drug therapy; W01.0XXA Fall on same level from slipping, tripping and stumbling without subsequent striking against object, initial encounter; Y93.89 Activity, other specified; Y92.129 Unspecified place in nursing home as the place of occurrence of the external cause
CPT/HCPCS: 94640; 73502; 73552; 71046; 99284; 96374; J2270

== ENCOUNTER 2019-12-13 02:28 | Inpatient (IN) | payer MEDICARE, BC ==
[2019-12-13 03:01] LABS: Basophils % (A) 0 %; Eosinophils # (A) 0.4 k/uL (0-0.7); Eosinophils % (A) 3 %; HCT 37.5 % (34.0-46.0); HGB 11.8 gm/dL (11.4-16.0); Lymphocytes % (A) 16 %; MCHC 31.5 g/dL (31.0-37.0); MCV 85.7 fL (80.0-100.0); Mean Platelet Volume 7.5; Monocytes # (A) 0.6 k/uL (0-1.0); Monocytes % (A) 5 %; Neutrophils # (A) 9.5 k/uL (1.3-7.7); Neutrophils % (A) 75 %; Platelet Count 410 k/uL (150-450); RBC 4.37 m/uL (3.80-5.40); RDW 14.8 % (11.5-15.5); WBC 12.7 k/uL (3.8-10.6)
[2019-12-13 03:12] LABS: Albumin 3.7 g/dL (3.5-5.0); Calcium 9.2 mg/dL (8.4-10.2); Potassium 4.5 mmol/L (3.5-5.1); Total Bilirubin 0.3 mg/dL (0.2-1.3); Total Protein 6.6 g/dL (6.3-8.2)
[2019-12-13 03:16] LABS: INR 0.9 (<1.2); Prothrombin Time 9.9 sec (9.0-12.0)
[2019-12-13 03:21] LABS: Appearance,Urine Turbid (Clear); Bilirubin,Urine Negative (Negative); Blood,Urine Trace (Negative); Color,Urine Yellow; Glucose,Urine (UA) Negative (Negative); Ketones,Urine Negative (Negative); Leukocyte Esterase,Urine Large (Negative); Mucus,Urine Rare /hpf; Nitrite,Urine Negative (Negative); Protein,Urine 1+ (Negative); RBC,Urine 13 /hpf (0-5); Specific Gravity,Urine 1.015 (1.001-1.035); Squamous Epithelial Cell,Urine 1 /hpf (0-4); Urobilinogen,Urine <2.0 mg/dL (<2.0); WBC,Urine >182 /hpf (0-5)
[2019-12-13 03:25] LABS: Partial Thromboplastin Time 20.7 sec (22.0-30.0)
--- NOTE | 2019-12-13 04:05 | ED ---
Altered Mental Status HPI - General Chief Complaint: Altered Mental Status Stated Complaint: Recheck/Altered Time Seen by Provider: 12/13/19 02:31 Source: RN/MD, EMS Mode of arrival: EMS Limitations: altered mental status - History of Present Illness Initial Comments: This patient is a 4-year-old woman presenting from intermediate for evaluation of altered mental status. They report that the patient has been less responsive than his usual. There is history of underlying dementia, but patient reported clearly not at baseline. Patient did have urine sent that was suspicious for urinary tract infection. Patient is not able to give any history. Patient does deny pain MD Complaint: altered mental status -: unknown Consistency of Symptoms: getting worse - Related Data Home Medications Medication Instructions Recorded Confirmed Donepezil [Aricept] 10 mg PO HS 05/10/17 06/04/18 Losartan Potassium 50 mg PO DAILY 05/10/17 06/04/18 amLODIPine [Norvasc] 10 mg PO DAILY 05/10/17 06/04/18 metFORMIN HCL [Glucophage] 500 mg PO AC-BID 05/10/17 06/04/18 Magnesium Oxide [Mag-Ox] 400 mg PO BID 10/21/17 06/04/18 Memantine [Namenda] 5 mg PO BID 10/21/17 06/04/18 Pantoprazole [Protonix] 40 mg PO DAILY 10/21/17 06/04/18 Atenolol 100 mg PO DAILY 06/04/18 06/04/18 INSULIN ASPART (NovoLOG) [NovoLOG See Protocol SQ ACHS 06/04/18 06/04/18 (formulary)] Liraglutide [Victoza 2-Lorenzo] 0.6 mg SQ DAILY 06/04/18 06/04/18 Losartan [Cozaar] 25 mg PO DAILY 06/04/18 06/04/18 guaiFENesin SYRUP 100MG/5ML 200 mg PO Q4H PRN 06/04/18 06/04/18 [Robitussin] Previous Rx's Medication Instructions Recorded Acetaminophen Tab [Tylenol] 650 mg PO Q6HR PRN tab 02/27/18 Allergies Allergy/AdvReac Type Severity Reaction Status Date / Time No Known Allergies Allergy Verified 06/04/18 21:25 Review of Systems ROS Statement: Those systems with pertinent positive or pertinent negative responses have been documented in the HPI. ROS Other: All systems not noted in ROS Statement are negative. Limitations: ROS unobtainable due to patients medical condition (Delirium versus dementia) Past Medical History Past Medical History: Dementia, Diabetes Mellitus, Hypertension Additional Past Medical History / Comment(s): uti-ecoli History of Any Multi-Drug Resistant Organisms: ESBL Date of last positivie culture/infection: 05/10/17 MDRO Source:: URINE ESBL Past Surgical History: Cholecystectomy Past Anesthesia/Blood Transfusion Reactions: No Reported Reaction Past Psychological History: No Psychological Hx Reported Smoking Status: Never smoker Past Alcohol Use History: None Reported Past Drug Use History: None Reported - Past Family History Father History Unknown: Yes Mother History Unknown: Yes General Exam Limitations: altered mental status General appearance: alert, in no apparent distress Head exam: Present: atraumatic, normocephalic Eye exam: Present: normal appearance ENT exam: Present: mucous membranes dry Neck exam: Present: normal inspection, full ROM. Absent: tenderness, meningismus Respiratory exam: Present: normal lung sounds bilaterally. Absent: respiratory distress, wheezes, rales, rhonchi, stridor, chest wall tenderness Cardiovascular Exam: Present: regular rate, normal rhythm, normal heart sounds. Absent: systolic murmur, diastolic murmur, rubs, gallop GI/Abdominal exam: Present: soft. Absent: tenderness, guarding, rebound, mass Extremities exam: Present: normal inspection, normal capillary refill. Absent: pedal edema, calf tenderness Neurological exam: Present: alert, CN II-XII intact. Absent: oriented X3 (Patient is oriented to person), motor sensory deficit Skin exam: Present: warm, dry, intact, normal color. Absent: rash Course Vital Signs 12/13/19 12/13/19 12/13/19 02:30 02:35 03:00 Temperature 98.3 F Pulse Rate 64 63 64 Pulse Rate [ Pulse Oximetery ] Respiratory 20 16 16 Rate Blood Pressure 138/109 160/122 138/109 Blood Pressure [Left Arm] O2 Sat by Pulse 98 97 97 Oximetry 12/13/19 12/13/19 12/13/19 03:30 04:00 04:30 Temperature Pulse Rate 62 63 65 Pulse Rate [ Pulse Oximetery ] Respiratory 16 16 18 Rate Blood Pressure 157/111 145/77 134/66 Blood Pressure [Left Arm] O2 Sat by Pulse 97 97 96 Oximetry 12/13/19 05:10 Temperature 97.8 F Pulse Rate Pulse Rate [ 69 Pulse Oximetery ] Respiratory Rate Blood Pressure Blood Pressure 128/54 [Left Arm] O2 Sat by Pulse 96 Oximetry Medical Decision Making - Medical Decision Making Patient is an 84-year-old woman resident of intermediate sent for worsening of her mental status. Found to have urinary tract infection. Patient started on antibiotics and will be admitted for results of cultures. - Lab Data Result diagrams: 12/13/19 02:46 12/13/19 02:46 Lab Results 12/13/19 12/13/19 12/13/19 Range/Units 02:46 02:46 02:46 WBC 12.7 H (3.8-10.6) k/uL RBC 4.37 (3.80-5.40) m/uL Hgb 11.8 (11.4-16.0) gm/dL Hct 37.5 (34.0-46.0) % MCV 85.7 (80.0-100.0) fL MCH 27.0 (25.0-35.0) pg MCHC 31.5 (31.0-37.0) g/dL RDW 14.8 (11.5-15.5) % Plt Count 410 (150-450) k/uL Neutrophils % 75 % Lymphocytes % 16 % Monocytes % 5 % Eosinophils % 3 % Basophils % 0 % Neutrophils # 9.5 H (1.3-7.7) k/uL Lymphocytes # 2.0 (1.0-4.8) k/uL Monocytes # 0.6 (0-1.0) k/uL Eosinophils # 0.4 (0-0.7) k/uL Basophils # 0.0 (0-0.2) k/uL PT 9.9 (9.0-12.0) sec INR 0.9 (<1.2) APTT 20.7 L (22.0-30.0) sec Sodium 141 (137-145) mmol/L Potassium 4.5 (3.5-5.1) mmol/L Chloride 103 (98-107) mmol/L Carbon Dioxide 29 (22-30) mmol/L Anion Gap 9 mmol/L BUN 34 H (7-17) mg/dL Creatinine 1.26 H (0.52-1.04) mg/dL Est GFR (CKD-EPI)AfAm 45 (>60 ml/min/1.73 sqM) Est GFR (CKD-EPI)NonAf 39 (>60 ml/min/1.73 sqM) Glucose 122 H (74-99) mg/dL Plasma Lactic Acid Jian (0.7-2.0) mmol/L Calcium 9.2 (8.4-10.2) mg/dL Total Bilirubin 0.3 (0.2-1.3) mg/dL AST 26 (14-36) U/L ALT 14 (4-34) U/L Alkaline Phosphatase 73 (38-126) U/L Total Protein 6.6 (6.3-8.2) g/dL Albumin 3.7 (3.5-5.0) g/dL Urine Color Urine Appearance (Clear) Urine pH (5.0-8.0) Ur Specific [place] (1.001-1.035) Urine Protein (Negative) Urine Glucose (UA) (Negative) Urine Ketones (Negative) Urine Blood (Negative) Urine Nitrite (Negative) Urine Bilirubin (Negative) Urine Urobilinogen (<2.0) mg/dL Ur Leukocyte Esterase (Negative) Urine RBC (0-5) /hpf Urine WBC (0-5) /hpf Urine WBC Clumps (None) /hpf Ur Squamous Epith Cells (0-4) /hpf Urine Mucus (None) /hpf 12/13/19 12/13/19 Range/Units 02:46 03:01 WBC (3.8-10.6) k/uL RBC (3.80-5.40) m/uL Hgb (11.4-16.0) gm/dL Hct (34.0-46.0) % MCV (80.0-100.0) fL MCH (25.0-35.0) pg MCHC (31.0-37.0) g/dL RDW (11.5-15.5) % Plt Count (150-450) k/uL Neutrophils % % Lymphocytes % % Monocytes % % Eosinophils % % Basophils % % Neutrophils # (1.3-7.7) k/uL Lymphocytes # (1.0-4.8) k/uL Monocytes # (0-1.0) k/uL Eosinophils # (0-0.7) k/uL Basophils # (0-0.2) k/uL PT (9.0-12.0) sec INR (<1.2) APTT (22.0-30.0) sec Sodium (137-145) mmol/L Potassium (3.5-5.1) mmol/L Chloride (98-107) mmol/L Carbon Dioxide (22-30) mmol/L Anion Gap mmol/L BUN (7-17) mg/dL Creatinine (0.52-1.04) mg/dL Est GFR (CKD-EPI)AfAm (>60 ml/min/1.73 sqM) Est GFR (CKD-EPI)NonAf (>60 ml/min/1.73 sqM) Glucose (74-99) mg/dL Plasma Lactic Acid Jian 1.7 (0.7-2.0) mmol/L Calcium (8.4-10.2) mg/dL Total Bilirubin (0.2-1.3) mg/dL AST (14-36) U/L ALT (4-34) U/L Alkaline Phosphatase (38-126) U/L Total Protein (6.3-8.2) g/dL Albumin (3.5-5.0) g/dL Urine Color Yellow Urine Appearance Turbid H (Clear) Urine pH 5.0 (5.0-8.0) Ur Specific [place] 1.015 (1.001-1.035) Urine Protein 1+ H (Negative) Urine Glucose (UA) Negative (Negative) Urine Ketones Negative (Negative) Urine Blood Trace H (Negative) Urine Nitrite Negative (Negative) Urine Bilirubin Negative (Negative) Urine Urobilinogen <2.0 (<2.0) mg/dL Ur Leukocyte Esterase Large H (Negative) Urine RBC 13 H (0-5) /hpf Urine WBC >182 H (0-5) /hpf Urine WBC Clumps Many H (None) /hpf Ur Squamous Epith Cells 1 (0-4) /hpf Urine Mucus Rare H (None) /hpf - EKG Data -: EKG Interpreted by Me EKG shows normal: sinus rhythm, axis (Normal), intervals (Normal), QRS complexes (Normal) Rate: normal (Rate 65 bpm) Interpretation: nonspecific ST-T wave changes Disposition Clinical Impression: UTI (urinary tract infection), Altered mental status Disposition: ADMITTED IP TO THIS [facility] Condition: Poor Instructions (If sedation given, give patient instructions): Altered Mental Status (ED) Referrals: Yuan Wharton MD [Primary Care Provider] - 1-2 days
--- NOTE | 2019-12-13 04:06 | XR ---
EXAMINATION TYPE: XR chest 1V portable DATE OF EXAM: 12/13/2019 COMPARISON: 06/04/2018 HISTORY: Fever TECHNIQUE: FINDINGS: Heart size is normal. There is no heart failure. Thoracic aorta is atheromatous. There are chest leads. There is old right-sided healed rib fractures. Costophrenic angles are clear. There is n o pulmonary consolidation. IMPRESSION: No active cardiopulmonary disease. Atheromatous aorta. Heart and lungs not significantly different than old exam.
[2019-12-13] MEDS ORDERED: NALOXONE 0.4 MG/ML 1 ML VIAL IV PRN (04:11)
[2019-12-13] MEDS ORDERED: ACETAMINOPHEN TAB 325 MG TAB PO PRN (04:13)
[2019-12-13] MEDS ORDERED: LEVOFLOXACIN 750MG-D5W PMX 750 MG in DEXTROSE/WATER 1 150ML.BAG IVPB SCH (04:30)
[2019-12-13] MEDS: SODIUM CHLORIDE 0.9% 1,000 ML IV SCH ×2 (04:31→21:18)
[2019-12-13] MEDS ORDERED: metFORMIN 500 MG TAB PO SCH (07:30)
[2019-12-13] MEDS ORDERED: PIPERACILLIN-TAZOBACTAM 3.375 GM in SODIUM CHLORIDE 0.9% 100 ML IVPB SCH (08:00)
[2019-12-13] MEDS: MEMANTINE 5 MG TAB PO SCH ×2 (08:05→21:19)
[2019-12-13] MEDS: PANTOPRAZOLE 40 MG TABLET PO SCH (08:05)
[2019-12-13] MEDS: LOSARTAN 50 MG TAB PO SCH (08:05)
[2019-12-13] MEDS: ATENOLOL 50 MG TAB PO SCH (08:05)
[2019-12-13] MEDS: amLODIPine 10 MG TAB PO SCH (08:05)
[2019-12-13] MEDS: MAGNESIUM OXIDE 400 MG TAB PO SCH ×2 (08:06→21:19)
[2019-12-13 09:10] LABS: Glucose,Whole Blood 105 mg/dL (75-99)
[2019-12-13 11:28] LABS: Glucose,Whole Blood 116 mg/dL (75-99)
--- NOTE | 2019-12-13 11:28 | P.HPIM ---
History of Present Illness this is a pleasant 84 years old female with past medical history of dementia, diabetes mellitus, hypertension. Presents with altered mental status. Patient could not provide information that it was obtained from the chart and staff. It looks like patient admitted for become less responsive and in view of her history of dementia patient is afebrile and vitals are stable. Showed leukocytosis of 12.7 K,creatinine 1.26, baseline creatinine is 0.8-1.2. EKG showed normal sinus rhythm at 65 BPM, QTC 440, no ST-T changes. Chest x-ray no acute process by radiologist. in the emergency room patient was started on Zosyn and Levaquin Review of Systems N/a, patient could not provide information Past Medical History Past Medical History: Dementia, Diabetes Mellitus, Hypertension Additional Past Medical History / Comment(s): uti-ecoli History of Any Multi-Drug Resistant Organisms: ESBL Date of last positivie culture/infection: 05/10/17 MDRO Source:: URINE ESBL Past Surgical History: Cholecystectomy Past Anesthesia/Blood Transfusion Reactions: No Reported Reaction Past Psychological History: No Psychological Hx Reported Smoking Status: Never smoker Past Alcohol Use History: None Reported Past Drug Use History: None Reported - Past Family History Father History Unknown: Yes Mother History Unknown: Yes Medications and Allergies Home Medications Medication Instructions Recorded Confirmed Type Donepezil [Aricept] 10 mg PO HS@209905/10/17 12/13/19 History Losartan Potassium 50 mg PO DAILY@0900 05/10/17 12/13/19 History amLODIPine [Norvasc] 10 mg PO DAILY@0900 05/10/17 12/13/19 History Magnesium Oxide [Mag-Ox] 400 mg PO BID@0900,209910/21/17 12/13/19 History Memantine [Namenda] 5 mg PO BID@0900,209910/21/17 12/13/19 History Pantoprazole [Protonix] 40 mg PO HS@209910/21/17 12/13/19 History Losartan [Cozaar] 25 mg PO DAILY@0900 06/04/18 12/13/19 History guaiFENesin SYRUP 100MG/5ML 200 mg PO Q4H PRN 06/04/18 12/13/19 History [Robitussin] Acetaminophen [Tylenol 8 Hour] 650 mg PO Q8H PRN 12/13/19 12/13/19 History Cholecalciferol [Vitamin D3 (25 2,000 unit PO HS@209912/13/19 12/13/19 History Mcg = 1000 Iu)] Dicyclomine [Bentyl] 20 mg PO QID 12/13/19 12/13/19 History Ertapenem [INVanz] 1 gram IV HS@209912/13/19 12/13/19 History Insulin Aspart [NovoLOG] 4 units SQ BID@1200,1700 12/13/19 12/13/19 History Insulin Degludec [Tresiba 30 unit SQ HS@209912/13/19 12/13/19 History Flextouch U-200] Liraglutide [Victoza 3-Lorenzo] 1.2 mg SQ HS@209912/13/19 12/13/19 History Metoprolol Tartrate [Lopressor] 50 mg PO BID@0900,209912/13/19 12/13/19 History metFORMIN HCL ER [Glucophage Xr] 1,000 mg PO DAILY@0900 12/13/19 12/13/19 History Allergies Allergy/AdvReac Type Severity Reaction Status Date / Time No Known Allergies Allergy Verified 12/13/19 10:23 Physical Exam Vitals: Vital Signs Temp Pulse Pulse Resp BP BP Pulse Ox 12/13/19 08:00 69 14 12/13/19 07:00 95.4 F L 69 14 120/76 95 12/13/19 05:10 97.8 F 69 128/54 96 12/13/19 04:30 65 18 134/66 96 12/13/19 04:00 63 16 145/77 97 12/13/19 03:30 62 16 157/111 97 12/13/19 03:00 64 16 138/109 97 12/13/19 02:35 63 16 160/122 97 12/13/19 02:30 98.3 F 64 20 138/109 98 Intake and Output 12/12/19 12/13/19 12/13/19 22:59 06:59 14:59 Other: # Voids 1 # Bowel Movements 1 Weight 54.431 kg -GENERAL: The patient is awake and she has good attention span however she does not answer questions and she does not obeys commands, not in any acute distress. Well developed, well nourished. HEENT: Pupils are round and equally reacting to light. EOMI. No scleral icterus. No conjunctival pallor. Normocephalic, atraumatic. No pharyngeal erythema. No thyromegaly. CARDIOVASCULAR: S1 and S2 present. No murmurs, rubs, or gallops. PULMONARY: Chest is clear to auscultation, no wheezing or crackles. -ABDOMEN: Soft, mild suprapubic discomfort, nondistended, normoactive bowel sounds. No palpable organomegaly. MUSCULOSKELETAL: No joint swelling or deformity. EXTREMITIES: No cyanosis, clubbing, or pedal edema. -NEUROLOGICAL: Gross neurological examination did not reveal any focal deficits. meningeal signs are absent SKIN: No rashes. No petechiae Results CBC & Chem 7: 12/13/19 02:46 12/13/19 02:46 Labs: Abnormal Lab Results - Last 24 Hours (Table) 12/13/19 12/13/19 12/13/19 Range/Units 02:46 02:46 02:46 WBC 12.7 H (3.8-10.6) k/uL Neutrophils # 9.5 H (1.3-7.7) k/uL APTT 20.7 L (22.0-30.0) sec BUN 34 H (7-17) mg/dL Creatinine 1.26 H (0.52-1.04) mg/dL Glucose 122 H (74-99) mg/dL POC Glucose (mg/dL) (75-99) mg/dL Urine Appearance (Clear) Urine Protein (Negative) Urine Blood (Negative) Ur Leukocyte Esterase (Negative) Urine RBC (0-5) /hpf Urine WBC (0-5) /hpf Urine WBC Clumps (None) /hpf Urine Mucus (None) /hpf 12/13/19 12/13/19 Range/Units 03:01 09:09 WBC (3.8-10.6) k/uL Neutrophils # (1.3-7.7) k/uL APTT (22.0-30.0) sec BUN (7-17) mg/dL Creatinine (0.52-1.04) mg/dL Glucose (74-99) mg/dL POC Glucose (mg/dL) 105 H (75-99) mg/dL Urine Appearance Turbid H (Clear) Urine Protein 1+ H (Negative) Urine Blood Trace H (Negative) Ur Leukocyte Esterase Large H (Negative) Urine RBC 13 H (0-5) /hpf Urine WBC >182 H (0-5) /hpf Urine WBC Clumps Many H (None) /hpf Urine Mucus Rare H (None) /hpf Assessment and Plan Assessment: Acute urinary tract infection Metabolic encephalopathy secondary to above acute kidney injury Diabetes mellitus Hypertension Plan: this is a pleasant 84 years old female who presents with UTI and encephalopathy. Continue with Levaquin. stop Zosyn.follow-up urine culture. Continue with gentle hydration and normal saline at 50 mL per hour. Follow-up SARS to test for covid-19 as it is as it is pandemic time Labs and medication were reviewed.. Continue same treatment. Continue with symptomatic treatment. Resume home medication. Monitor lytes and vitals. DVT and GI prophylaxis. Further recommendations of the clinical course of the patient DVT prophylaxis: Subcutaneous heparin GI Prophylaxis: Pepcid PT/OT: Pending Prognosis is guarded
[2019-12-13 16:31] LABS: Glucose,Whole Blood 72 mg/dL (75-99)
[2019-12-13] MEDS: NON FORMULARY DRUG (Liraglutide [Victoza 2-Pak] 0.6 MG) SQ SCH (16:40)
[2019-12-13] MEDS ORDERED: FAMOTIDINE 20 MG/2 ML VIAL IV SCH ×2 (21:00)
[2019-12-13] MEDS: PIPERACILLIN-TAZOBACTAM 3.375 GM in SODIUM CHLORIDE 0.9% 100 ML IVPB SCH (21:19)
[2019-12-13] MEDS: HEPARIN SODIUM,PORCINE 5,000 UNIT/ML 1 ML VIAL SQ SCH (21:19)
[2019-12-13] MEDS: DONEPEZIL 10 MG TAB PO SCH (21:19)
[2019-12-14] MEDS: SODIUM CHLORIDE 0.9% 1,000 ML IV SCH ×2 (04:23→16:57)
[2019-12-14] MEDS: PIPERACILLIN-TAZOBACTAM 3.375 GM in SODIUM CHLORIDE 0.9% 100 ML IVPB SCH ×2 (04:24→12:55)
[2019-12-14 07:11] LABS: Glucose,Whole Blood 73 mg/dL (75-99)
[2019-12-14 07:26] LABS: Basophils % (A) 0 %; Eosinophils # (A) 0.2 k/uL (0-0.7); Eosinophils % (A) 2 %; HCT 37.6 % (34.0-46.0); Lymphocytes # (A) 1.6 k/uL (1.0-4.8); Lymphocytes % (A) 13 %; MCH 27.4 pg (25.0-35.0); MCV 85.6 fL (80.0-100.0); Mean Platelet Volume 8.2; Monocytes # (A) 0.9 k/uL (0-1.0); Monocytes % (A) 7 %; Neutrophils # (A) 9.6 k/uL (1.3-7.7); Neutrophils % (A) 78 %; Platelet Count 480 k/uL (150-450); RBC 4.39 m/uL (3.80-5.40); RDW 14.7 % (11.5-15.5); WBC 12.4 k/uL (3.8-10.6)
[2019-12-14 07:52] LABS: Calcium 9.1 mg/dL (8.4-10.2); Potassium 4.1 mmol/L (3.5-5.1)
[2019-12-14] MEDS: LOSARTAN 50 MG TAB PO SCH (08:22)
[2019-12-14] MEDS: MAGNESIUM OXIDE 400 MG TAB PO SCH ×2 (08:22→20:19)
[2019-12-14] MEDS: MEMANTINE 5 MG TAB PO SCH ×2 (08:22→20:19)
[2019-12-14] MEDS: ATENOLOL 50 MG TAB PO SCH (08:22)
[2019-12-14] MEDS: amLODIPine 10 MG TAB PO SCH (08:23)
[2019-12-14] MEDS: PANTOPRAZOLE 40 MG TABLET PO SCH (08:23)
[2019-12-14] MEDS: HEPARIN SODIUM,PORCINE 5,000 UNIT/ML 1 ML VIAL SQ SCH ×2 (08:24→20:19)
[2019-12-14] MEDS: NON FORMULARY DRUG (Liraglutide [Victoza 2-Pak] 0.6 MG) SQ SCH (11:00)
[2019-12-14 11:37] LABS: Glucose,Whole Blood 79 mg/dL (75-99)
--- NOTE | 2019-12-14 13:07 | P.PN ---
Subjective this is a pleasant 84 years old female with past medical history of dementia, diabetes mellitus, hypertension. Presents with altered mental status. Patient could not provide information that it was obtained from the chart and staff. It looks like patient admitted for become less responsive and in view of her history of dementia patient is afebrile and vitals are stable. Showed leukocytosis of 12.7 K,creatinine 1.26, baseline creatinine is 0.8-1.2. EKG showed normal sinus rhythm at 65 BPM, QTC 440, no ST-T changes. Chest x-ray no acute process by radiologist. in the emergency room patient was started on Zosyn and Levaquin 12/14/2019 patient is more awake today however when we asked the patient she answers inappropriately and with unrelated subject discussed the case with her PCP Dr. Wharton yesterday over the phone, apparently the patient has been treated for ESBL UTI with meropenem and after failure of treatment and the duration of her mental status was transferred to the hospital, there is urine cultures pending from her [facility], yesterday discussed with the staff to obtain the records for the urine culture. today she has low temperature of 97.0, risks of Vitas looks stable. She is saturating 92% on room air. she has persistent leukocytosis of 12.40. Creatinine is back to normal at 1.01 urine culture is growing group D enterococcus Infectious disease has been consulted review of systems:N/a, patient could not provide information Active Medications Generic Name Dose Route Start Last Admin Trade Name Freq PRN Reason Stop Dose Admin Acetaminophen 650 mg 12/13/19 04:13 Tylenol Tab PO Q6HR PRN Mild Pain or Fever > 100.5 Amlodipine Besylate 10 mg 12/13/19 09:00 12/14/19 08:23 Norvasc PO 10 mg DAILY DAGO Administration Atenolol 100 mg 12/13/19 09:00 12/14/19 08:22 Tenormin PO 100 mg DAILY DAGO Administration Donepezil HCl 10 mg 12/13/19 21:00 12/13/19 21:19 Aricept PO 10 mg HS DAGO Administration Famotidine 20 mg 12/14/19 21:00 Pepcid PO HS DAGO Heparin Sodium (Porcine) 5,000 unit 12/13/19 21:00 12/14/19 08:24 Heparin SQ 5,000 unit Q12HR DAGO Administration Sodium Chloride 1,000 mls @ 20 mls/hr 12/13/19 04:15 12/14/19 04:23 Saline 0.9% IV Not Given .Q24H DAGO Levofloxacin 750 mg/ IV 150 mls @ 100 mls/hr 12/15/19 05:00 Solution IVPB Q48H DAGO Sodium Chloride 1,000 mls @ 50 mls/hr 12/13/19 11:30 12/13/19 21:18 Saline 0.9% IV 50 mls/hr .Q20H [facility] Administration Piperacillin Sod/Tazobactam 100 mls @ 25 mls/hr 12/13/19 20:00 12/14/19 12:55 Sod 3.375 gm/ Sodium Chloride IVPB 25 mls/hr Q8H [facility] Administration Losartan Potassium 50 mg 12/13/19 09:00 12/14/19 08:22 Cozaar PO 50 mg DAILY DAG[facility] Administration Magnesium Oxide 400 mg 12/13/19 09:00 12/14/19 08:22 Mag-Ox PO 400 mg BID DAGO Administration Memantine 5 mg 12/13/19 09:00 12/14/19 08:22 Namenda PO 5 mg BID DAG[facility] Administration Naloxone HCl 0.2 mg 12/13/19 04:11 Narcan IV Q2M PRN Opioid Reversal Non-Formulary Medication 0.6 mg 12/13/19 09:00 12/14/19 11:00 Liraglutide [Victoza 2-Lorenzo] SQ Not Given DAILY [facility] Pantoprazole Sodium 40 mg 12/13/19 09:00 12/14/19 08:23 Protonix PO 40 mg DAILY DAGO Administration Objective - Vital Signs Vital signs: Vital Signs Temp 97.0 F L 12/14/19 07:00 Pulse 75 12/14/19 08:00 Resp 17 12/14/19 08:00 BP 120/96 12/14/19 07:00 Pulse Ox 92 L 12/14/19 07:00 Intake & Output 12/13/19 12/14/19 12/14/19 18:59 06:59 18:59 Intake Total 240 Output Total 800 3 Balance -800 240 -3 Intake: Intake, IV Titration 240 Amount Sodium Chloride 0.9% 1, 240 000 ml @ 20 mls/hr IV . Q24H [facility] Rx#:[id number] Output: Urine 800 Emesis 3 Other: # Voids 1 # Bowel Movements 1 1 - Labs CBC & Chem 7: 12/14/19 06:19 12/14/19 06:19 Labs: Abnormal Lab Results - Last 24 Hours (Table) 12/13/19 12/14/19 12/14/19 Range/Units 16:30 06:19 06:19 WBC 12.4 H (3.8-10.6) k/uL Plt Count 480 H (150-450) k/uL Neutrophils # 9.6 H (1.3-7.7) k/uL BUN 23 H (7-17) mg/dL Glucose 69 L (74-99) mg/dL POC Glucose (mg/dL) 72 L (75-99) mg/dL 12/14/19 Range/Units 07:10 WBC (3.8-10.6) k/uL Plt Count (150-450) k/uL Neutrophils # (1.3-7.7) k/uL BUN (7-17) mg/dL Glucose (74-99) mg/dL POC Glucose (mg/dL) 73 L (75-99) mg/dL Microbiology - Last 24 Hours (Table) 12/13/19 03:01 Urine Culture - Preliminary Urine,Clean Catch Group D Enterococcus 12/13/19 03:28 Blood Culture - Preliminary Blood No Growth after 24 hours Assessment and Plan Assessment: Acute urinary tract infection, secondary to group D enterococcus Metabolic encephalopathy secondary to above acute kidney injury Diabetes mellitus Hypertension Plan: this is a pleasant 84 years old female who presents with UTI and encephalopathy. Continue with Levaquin. stop Zosyn.follow-up urine culture. Continue with gentle hydration and normal saline at 50 mL per hour. Follow-up SARS to test for covid-19 as it is as it is pandemic time Labs and medication were reviewed.. Continue same treatment. Continue with symptomatic treatment. Resume home medication. Monitor lytes and vitals. DVT and GI prophylaxis. Further recommendations of the clinical course of the patient DVT prophylaxis: Subcutaneous heparin GI Prophylaxis: Pepcid Prognosis is guarded
[2019-12-14 16:13] LABS: Glucose,Whole Blood 76 mg/dL (75-99)
[2019-12-14] MEDS: AMPICILLIN-SULBACTAM 1.5 GM in SODIUM CHLORIDE 0.9% 50 ML IVPB SCH (16:57)
[2019-12-14] MEDS: FAMOTIDINE 20 MG TAB PO SCH (20:19)
[2019-12-14] MEDS: DONEPEZIL 10 MG TAB PO SCH (20:19)
[2019-12-14 20:38] LABS: Glucose,Whole Blood 100 mg/dL (75-99)
[2019-12-15] MEDS: AMPICILLIN-SULBACTAM 1.5 GM in SODIUM CHLORIDE 0.9% 50 ML IVPB SCH ×3 (00:27→11:31)
--- NOTE | 2019-12-15 00:35 | P.CONS ---
History of Present Illness - Reason for Consult Consult date: 12/14/19 UTI Requesting physician: Emanuel E Sheet - Chief Complaint Mental status changes x 1 day - History of Present Illness Patient is 84-year female retirement resident who has been sent to the ER at [facility] yesterday morning for evaluation of mental s tatus changes patient to have underlying dementia however the patient has not has been seen to be off her baseline patient did have a positive UA with concern for urinary tract infection and previous history of ESBL E. coli she has been sent to the ER for further management of her underlying urine tract infection on arrival to the ER the patient was afebrile with 1 low temperature of 95.4 patient did have a white count of 12.4 she did have a positive UA alves PCR was negative chest x-ray was negative for any acute infiltrate patient has been admitted to the hospital she was started on Levaquin and Zosyn infectious was consulted for further recommendation of antibiotic therapy most information most information has been obtained from review the chart has been herself is unable to provide any reliable history because of underlying dementia. Review of Systems Positive point has been mentioned in HPI complete review could not be obtained because of underlying mental status Past Medical History Past Medical History: Dementia, Diabetes Mellitus, Hypertension Additional Past Medical History / Comment(s): uti-ecoli History of Any Multi-Drug Resistant Organisms: ESBL Year Discovered:: 05/10/17 MDRO Source:: URINE ESBL Past Surgical History: Cholecystectomy Past Anesthesia/Blood Transfusion Reactions: No Reported Reaction Past Psychological History: No Psychological Hx Reported Smoking Status: Never smoker Past Alcohol Use History: None Reported Past Drug Use History: None Reported - Past Family History Father History Unknown: Yes Mother History Unknown: Yes Medications and Allergies Home Medications Medication Instructions Recorded Confirmed Type Donepezil [Aricept] 10 mg PO HS@209905/10/17 12/13/19 History Losartan Potassium 50 mg PO DAILY@0900 05/10/17 12/13/19 History amLODIPine [Norvasc] 10 mg PO DAILY@0900 05/10/17 12/13/19 History Magnesium Oxide [Mag-Ox] 400 mg PO BID@0900,209910/21/17 12/13/19 History Memantine [Namenda] 5 mg PO BID@0900,209910/21/17 12/13/19 History Pantoprazole [Protonix] 40 mg PO HS@209910/21/17 12/13/19 History Losartan [Cozaar] 25 mg PO DAILY@0900 06/04/18 12/13/19 History guaiFENesin SYRUP 100MG/5ML 200 mg PO Q4H PRN 06/04/18 12/13/19 History [Robitussin] Acetaminophen [Tylenol] 650 mg PO Q6H PRN 12/13/19 12/13/19 History Cholecalciferol [Vitamin D3 (25 2,000 unit PO HS@209912/13/19 12/13/19 History Mcg = 1000 Iu)] Dicyclomine [Bentyl] 20 mg PO QID 12/13/19 12/13/19 History Ertapenem [INVanz] 1 gram IV HS@209912/13/19 12/13/19 History Insulin Aspart [NovoLOG] 4 units SQ BID@1200,1700 12/13/19 12/13/19 History Insulin Degludec [Tresiba 30 unit SQ HS@209912/13/19 12/13/19 History Flextouch U-200] Liraglutide [Victoza 3-Lorenzo] 1.2 mg SQ HS@209912/13/19 12/13/19 History Metoprolol Tartrate [Lopressor] 50 mg PO BID@0900,209912/13/19 12/13/19 History metFORMIN HCL ER [Glucophage Xr] 1,000 mg PO DAILY@0900 12/13/19 12/13/19 History Allergies Allergy/AdvReac Type Severity Reaction Status Date / Time No Known Allergies Allergy Verified 12/13/19 10:23 Physical Exam Vitals: Vital Signs Temp Pulse Resp BP Pulse Ox 12/14/19 14:44 98.4 F 71 17 136/80 99 12/14/19 08:00 75 17 12/14/19 07:00 97.0 F L 75 17 120/96 92 L 12/14/19 04:00 15 12/14/19 02:35 97.9 F 73 20 99/57 98 12/14/19 00:00 15 12/13/19 20:40 97.7 F 65 20 135/91 95 12/13/19 16:00 15 Intake and Output 12/13/19 12/14/19 12/14/19 22:59 06:59 14:59 Intake Total 240 Output Total 400 403 Balance -400 240 -403 Intake: Intake, IV Titration 240 Amount Sodium Chloride 0.9% 1, 240 000 ml @ 20 mls/hr IV . Q24H [facility] Rx#:[id number] Output: Urine 400 400 Emesis 3 Other: # Voids 1 # Bowel Movements 1 1 GENERAL DESCRIPTION: Elderly female lying in bed, no distress. No tachypnea or accessory muscle of respiration use. HEENT: Shows Pallor , no scleral icterus. Oral mucous membrane is dry. NECK: Trachea central, no thyromegaly. LUNGS: Unlabored breathing. Clear to auscultation anteriorly. No wheeze or crackle. HEART: S1, S2, regular rate and rhythm. ABDOMEN: Soft, no tenderness , guarding or rigidity EXTREMITIES: No edema of feet. SKIN: No rash, no masses palpable. NEUROLOGICAL: The patient is awake, orientation could not come in because of underlying dementia. Results CBC & Chem 7: 12/14/19 06:19 12/14/19 06:19 Labs: Abnormal Lab Results - Last 24 Hours (Table) 12/13/19 12/14/19 12/14/19 Range/Units 16:30 06:19 06:19 WBC 12.4 H (3.8-10.6) k/uL Plt Count 480 H (150-450) k/uL Neutrophils # 9.6 H (1.3-7.7) k/uL BUN 23 H (7-17) mg/dL Glucose 69 L (74-99) mg/dL POC Glucose (mg/dL) 72 L (75-99) mg/dL 12/14/19 Range/Units 07:10 WBC (3.8-10.6) k/uL Plt Count (150-450) k/uL Neutrophils # (1.3-7.7) k/uL BUN (7-17) mg/dL Glucose (74-99) mg/dL POC Glucose (mg/dL) 73 L (75-99) mg/dL Microbiology - Last 24 Hours (Table) 12/13/19 03:01 Urine Culture - Preliminary Urine,Clean Catch Group D Enterococcus 12/13/19 03:28 Blood Culture - Preliminary Blood No Growth after 24 hours Assessment and Plan Assessment: patient presented hospital with mental status changes likely multifactorial in this patient who did have history of recurrent UTI and a positive UA likely a component of symptomatic related infection with urine is currently showing ente rococcus and not a gram-negative pathogen (1) UTI (urinary tract infection) Current Visit: Yes Status: Acute Code(s): N39.0 - URINARY TRACT INFECTION, SITE NOT SPECIFIED SNOMED Code(s): 35584091 Plan: 1-discontinue Levaquin and Zosyn 2-start the patient on Unasyn 1.5 g every 6 hours We will follow on clinical condition and cultures to further adjust medication if needed Thank you for this consultation we will follow the patient along with you Time with Patient: Greater than 30
[2019-12-15] MEDS: SODIUM CHLORIDE 0.9% 1,000 ML IV SCH ×4 (04:35→20:19)
[2019-12-15] MEDS ORDERED: LEVOFLOXACIN 750MG-D5W PMX 750 MG in DEXTROSE/WATER 1 150ML.BAG IVPB SCH (05:00)
[2019-12-15 06:08] LABS: Basophils # (A) 0.1 k/uL (0-0.2); Basophils % (A) 1 %; Eosinophils # (A) 0.5 k/uL (0-0.7); Eosinophils % (A) 6 %; HCT 39.3 % (34.0-46.0); HGB 12.1 gm/dL (11.4-16.0); Hypochromasia Slight; Lymphocytes # (A) 2.3 k/uL (1.0-4.8); Lymphocytes % (A) 27 %; MCH 27.1 pg (25.0-35.0); MCHC 30.8 g/dL (31.0-37.0); MCV 87.8 fL (80.0-100.0); Mean Platelet Volume 7.4; Monocytes # (A) 0.5 k/uL (0-1.0); Monocytes % (A) 6 %; Neutrophils # (A) 5.1 k/uL (1.3-7.7); Neutrophils % (A) 60 %; Platelet Count 413 k/uL (150-450); RBC 4.48 m/uL (3.80-5.40); RDW 14.8 % (11.5-15.5); WBC 8.5 k/uL (3.8-10.6)
[2019-12-15 06:21] LABS: Calcium 8.9 mg/dL (8.4-10.2); Potassium 4.1 mmol/L (3.5-5.1)
[2019-12-15 07:29] LABS: Glucose,Whole Blood 76 mg/dL (75-99)
[2019-12-15] MEDS: NON FORMULARY DRUG (Liraglutide [Victoza 2-Pak] 0.6 MG) SQ SCH (07:56)
[2019-12-15] MEDS: PANTOPRAZOLE 40 MG TABLET PO SCH (08:00)
[2019-12-15] MEDS: LOSARTAN 50 MG TAB PO SCH (08:00)
[2019-12-15] MEDS: MAGNESIUM OXIDE 400 MG TAB PO SCH ×2 (08:00→20:18)
[2019-12-15] MEDS: MEMANTINE 5 MG TAB PO SCH ×2 (08:00→20:19)
[2019-12-15] MEDS: amLODIPine 10 MG TAB PO SCH (08:00)
[2019-12-15] MEDS: HEPARIN SODIUM,PORCINE 5,000 UNIT/ML 1 ML VIAL SQ SCH ×2 (08:00→20:19)
[2019-12-15] MEDS: ATENOLOL 50 MG TAB PO SCH (08:00)
[2019-12-15 12:02] LABS: Glucose,Whole Blood 112 mg/dL (75-99)
[2019-12-15] MEDS ORDERED: VANCOMYCIN IV PER PHARMACY 1 EACH MISC MISCELLANE PRN (13:48)
[2019-12-15] MEDS: VANCOMYCIN 1,000 MG in SODIUM CHLORIDE 0.9% 250 ML IVPB SCH (14:21)
[2019-12-15 17:04] LABS: Glucose,Whole Blood 188 mg/dL (75-99)
--- NOTE | 2019-12-15 18:31 | PN ---
PROGRESS NOTE DATE OF SERVICE: 12/15/2019 REASON FOR FOLLOWUP: Urinary tract infection. INTERVAL HISTORY: The patient is currently afebrile. The patient is breathing comfortably on room air. She is hemodynamically stable. The patient remains sleepy and lethargic. She did wake up but did not provide any history. PHYSICAL EXAMINATION: Blood pressure 135/88 with a pulse of 52, temperature 97.7. She is 100% on room air. General description is an elderly female lying in bed in no distress. RESPIRATORY SYSTEM: Unlabored breathing. Clear to auscultation anteriorly. HEART: S1, S2. Regular rate and rhythm. ABDOMEN: Soft. No tenderness. LABS: Wound is showing Enterococcus faecium, sensitive to vancomycin. DIAGNOSTIC IMPRESSION AND PLAN: Patient admitted to hospital with mental status changes, multifactorial, in this patient who did have a component of urinary tract infection. Urine has been Enterococcus faecium, sensitive to Vancomycin. Antibiotic has been switched to vancomycin. Will monitor her clinical course closely. MMODL / IJN: [id number] /
--- NOTE | 2019-12-15 18:58 | P.PN ---
Progress Note - Text Progress Note Date: 12/15/19 Presenting complaint: Altered mental status History of presenting complaint: this is a pleasant 84 years old female with past medical history of dementia, diabetes mellitus, hypertension. Presents with altered mental status. Patient could not provide information that it was obtained from the chart and staff. It looks like patient admitted for become less responsive and in view of her history of dementia Admitted with-acute UTI, metabolic encephalopathy, acute kidney injury. Today-oral intake is fair. Afebrile. Tired. Review of systems: Attempted for constitutional, cardiovascular, GI, pulmonary. relevant finding as above Active Medications Acetaminophen (Tylenol Tab) 650 mg PO Q6HR PRN PRN Reason: Mild Pain or Fever > 100.5 Amlodipine Besylate (Norvasc) 10 mg PO DAILY [facility] Last Admin: 12/15/19 08:00 Dose: 10 mg Documented by: Atenolol (Tenormin) 100 mg PO DAILY [facility] Last Admin: 12/15/19 08:00 Dose: 100 mg Documented by: Donepezil HCl (Aricept) 10 mg PO HS [facility] Last Admin: 12/14/19 20:19 Dose: 10 mg Documented by: Famotidine (Pepcid) 20 mg PO HS [facility] Last Admin: 12/14/19 20:19 Dose: 20 mg Documented by: Heparin Sodium (Porcine) (Heparin) 5,000 unit SQ Q12HR [facility] Last Admin: 12/15/19 08:00 Dose: 5,000 unit Documented by: Sodium Chloride (Saline 0.9%) 1,000 mls @ 20 mls/hr IV .Q24H [facility] Last Admin: 12/15/19 04:35 Dose: Not Given Documented by: Sodium Chloride (Saline 0.9%) 1,000 mls @ 50 mls/hr IV .Q20H [facility] Last Admin: 12/15/19 04:35 Dose: Not Given Documented by: Vancomycin HCl 1,000 mg/ (Sodium Chloride) 250 mls @ 125 mls/hr IVPB DAILY [facility] Last Admin: 12/15/19 14:21 Dose: 125 mls/hr Documented by: Losartan Potassium (Cozaar) 50 mg PO DAILY [facility] Last Admin: 12/15/19 08:00 Dose: 50 mg Documented by: Magnesium Oxide (Mag-Ox) 400 mg PO BID [facility] Last Admin: 12/15/19 08:00 Dose: 400 mg Documented by: Memantine (Namenda) 5 mg PO BID [facility] Last Admin: 12/15/19 08:00 Dose: 5 mg Documented by: Naloxone HCl (Narcan) 0.2 mg IV Q2M PRN PRN Reason: Opioid Reversal Non-Formulary Medication (Liraglutide [Victoza 2-Lorenzo]) 0.6 mg SQ DAILY [facility] Last Admin: 12/15/19 07:56 Dose: Not Given Documented by: Pantoprazole Sodium (Protonix) 40 mg PO DAILY [facility] Last Admin: 12/15/19 08:00 Dose: 40 mg Documented by: On examination: VITAL SIGNS: 97.3, 51, 18, 124/74, 96% on room air GENERAL APPEARANCE: Laying in bed, not in distress. HEENT: Normal external appearance of nose and ear. Oral cavity normal EYES: Pupils equal. Conjunctiva normal. NECK: JVD not raised. Mass not palpable. RESPIRATORY: Respiratory effort normal. Lungs clear to auscultation. CARDIOVASCULAR: First and second sounds normal. No edema. ABDOMEN: Soft. Liver and spleen not palpable. No tenderness. No mass palpable. PSYCHIATRY: Answering some questions INVESTIGATIONS, reviewed in the clinical context: White count 8.5 hemoglobin 12.1 potassium 4.1 crit and 0.94 Previous testing: Urine culture growing enterococcus faecium Assessment: -Acute UTI from cystitis from enterococcus faecium -Acute metabolic encephalopathy from above -Late onset Alzheimer's dementia -Diabetes mellitus type 2 -Essential hypertension Plan: Continue current medication treatment plan. On vancomycin per ID. Follow
[2019-12-15] MEDS: FAMOTIDINE 20 MG TAB PO SCH (20:18)
[2019-12-15] MEDS: DONEPEZIL 10 MG TAB PO SCH (20:19)
[2019-12-15 20:26] LABS: Glucose,Whole Blood 197 mg/dL (75-99)
[2019-12-16 02:42] LABS: Appearance,Urine Clear (Clear); Bilirubin,Urine Negative (Negative); Blood,Urine Negative (Negative); Color,Urine Yellow; Glucose,Urine (UA) 1+ (Negative); Ketones,Urine 1+ (Negative); Leukocyte Esterase,Urine Small (Negative); Nitrite,Urine Negative (Negative); Protein,Urine 2+ (Negative); RBC,Urine 3 /hpf (0-5); Specific Gravity,Urine 1.018 (1.001-1.035); Squamous Epithelial Cell,Urine 2 /hpf (0-4); Urobilinogen,Urine <2.0 mg/dL (<2.0); WBC,Urine 10 /hpf (0-5)
[2019-12-16 07:33] LABS: Glucose,Whole Blood 119 mg/dL (75-99)
[2019-12-16 07:37] VITALS: BP 143/63; PULSE 55; RESP 16; TEMP 97.4
[2019-12-16] MEDS: NON FORMULARY DRUG (Liraglutide [Victoza 2-Pak] 0.6 MG) SQ SCH (08:02)
[2019-12-16] MEDS: ATENOLOL 50 MG TAB PO SCH (08:07)
[2019-12-16] MEDS: HEPARIN SODIUM,PORCINE 5,000 UNIT/ML 1 ML VIAL SQ SCH (08:07)
[2019-12-16] MEDS: LOSARTAN 50 MG TAB PO SCH (08:07)
[2019-12-16] MEDS: MAGNESIUM OXIDE 400 MG TAB PO SCH (08:07)
[2019-12-16] MEDS: amLODIPine 10 MG TAB PO SCH (08:07)
[2019-12-16] MEDS: VANCOMYCIN 1,000 MG in SODIUM CHLORIDE 0.9% 250 ML IVPB SCH (08:07)
[2019-12-16] MEDS: PANTOPRAZOLE 40 MG TABLET PO SCH (08:08)
[2019-12-16] MEDS: MEMANTINE 5 MG TAB PO SCH (08:08)
[2019-12-16 09:04] LABS: Basophils % (A) 0 %; Eosinophils # (A) 0.4 k/uL (0-0.7); Eosinophils % (A) 5 %; HCT 37.8 % (34.0-46.0); HGB 12.2 gm/dL (11.4-16.0); Hypochromasia Slight; Lymphocytes # (A) 2.1 k/uL (1.0-4.8); Lymphocytes % (A) 22 %; MCHC 32.4 g/dL (31.0-37.0); MCV 86.4 fL (80.0-100.0); Monocytes # (A) 0.6 k/uL (0-1.0); Monocytes % (A) 6 %; Neutrophils # (A) 6.1 k/uL (1.3-7.7); Neutrophils % (A) 66 %; Platelet Count 472 k/uL (150-450); RBC 4.37 m/uL (3.80-5.40); RDW 14.3 % (11.5-15.5); WBC 9.3 k/uL (3.8-10.6)
[2019-12-16 09:06] LABS: Calcium 8.8 mg/dL (8.4-10.2)
[2019-12-16 11:58] LABS: Glucose,Whole Blood 180 mg/dL (75-99)
--- NOTE | 2019-12-16 14:12 | P.DS ---
Providers Date of admission: 12/15/19 08:24 Expected date of discharge: 12/16/19 Attending physician: Scott Vegas Consults: 12/13/19 14:26 Consult Physician Routine Consulting Provider: Esau Rey Consult Reason/Comments: hx of esbl Do you want consulting provider notified?: Yes Primary care physician: [facility] Course: Presenting complaint: Altered mental status History of presenting complaint: this is a pleasant 84 years old female with past medical history of dementia, diabetes mellitus, hypertension. Presents with altered mental status. Patient could not provide information that it was obtained from the chart and staff. It looks like patient admitted for become less responsive and in view of her history of dementia Admitted with-acute UTI, metabolic encephalopathy, acute kidney injury.urine culture positive for enterococcus-faecium.creatinine admission was 1.2 sick did drop down to 0.72.patient's Cozaar has been discontinued. Today-eating okay. Comfortable. Discussed with Dr. Camacho. Patient will get a midline today. And 7 days of vancomycin. Will go to the rehab place. Discussed with the nurse. Discussion and discharge planning more than 35 minutes Consultation: Dr. Rey from [place]. On examination: VITAL SIGNS: 97.4, 55, 16, 143/63, 97% on room air GENERAL APPEARANCE: sitting up, comfortable HEENT: Normal external appearance of nose and ear. Oral cavity normal EYES: Pupils equal. Conjunctiva normal. NECK: JVD not raised. Mass not palpable. RESPIRATORY: Respiratory effort normal. Lungs clear to auscultation. CARDIOVASCULAR: First and second sounds normal. No edema. ABDOMEN: Soft. Liver and spleen not palpable. No tenderness. No mass palpable. PSYCHIATRY: Answering some questions INVESTIGATIONS, reviewed in the clinical context: white count 9.3 hemoglobin 12.2 creatinine 0.7 to Previous testing: Urine culture growing enterococcus faecium white count 12.7 pressure 4.5 bun 34 creatinine 1.26 COVID-19 PCR-not detected Assessment: -Acute UTI from cystitis from enterococcus faecium -Acute metabolic encephalopathy from above -Saba cognitive impairment-Late onset Alzheimer's dementia -Diabetes mellitus type 2 -Essential hypertension -COVID-19 PCR-not detected disposition: F/[facility] Patient Condition at Discharge: Stable Plan - Discharge Summary Discharge Rx Participant: No New Discharge Prescriptions: New Vancomycin 1,000 mg IVPB DAILY #7 vial Continue amLODIPine [Norvasc] 10 mg PO DAILY@0900 Donepezil [Aricept] 10 mg PO HS@2100 Losartan Potassium 50 mg PO DAILY@0900 Magnesium Oxide [Mag-Ox] 400 mg PO BID@0900,2100 Pantoprazole [Protonix] 40 mg PO HS@2100 Memantine [Namenda] 5 mg PO BID@0900,2100 Dicyclomine [Bentyl] 20 mg PO QID Liraglutide [Victoza 3-Lorenzo] 1.2 mg SQ HS@2100 Metoprolol Tartrate [Lopressor] 50 mg PO BID@0900,2100 Acetaminophen [Tylenol] 650 mg PO Q6H PRN PRN Reason: Pain Or Fever > 100.5 Changed metFORMIN HCL ER [Glucophage Xr] 500 mg PO BID #0 Insulin Degludec [Tresiba Flextouch U-200] 12 unit SQ HS@2100 #0 Discontinued guaiFENesin SYRUP 100MG/5ML [Robitussin] 200 mg PO Q4H PRN PRN Reason: Cough Losartan [Cozaar] 25 mg PO DAILY@0900 Insulin Aspart [NovoLOG] 4 units SQ BID@1200,1700 Cholecalciferol [Vitamin D3 (25 Mcg = 1000 Iu)] 2,000 unit PO HS@2100 Ertapenem [INVanz] 1 gram IV HS@2100 Discharge Medication List Donepezil [Aricept] 10 mg PO HS@2100 05/10/17 [History] Losartan Potassium 50 mg PO DAILY@0900 05/10/17 [History] amLODIPine [Norvasc] 10 mg PO DAILY@0900 05/10/17 [History] Magnesium Oxide [Mag-Ox] 400 mg PO BID@0900,209910/21/17 [History] Memantine [Namenda] 5 mg PO BID@0900,209910/21/17 [History] Pantoprazole [Protonix] 40 mg PO HS@209910/21/17 [History] Acetaminophen [Tylenol] 650 mg PO Q6H PRN 12/13/19 [History] Dicyclomine [Bentyl] 20 mg PO QID 12/13/19 [History] Liraglutide [Victoza 3-Lorenzo] 1.2 mg SQ HS@2100 12/13/19 [History] Metoprolol Tartrate [Lopressor] 50 mg PO BID@0900,2100 12/13/19 [History] Insulin Degludec [Tresiba Flextouch U-200] 12 unit SQ HS@2099 #0 12/16/19 [Rx] Vancomycin 1,000 mg IVPB DAILY #7 vial 12/16/19 [Rx] metFORMIN HCL ER [Glucophage Xr] 500 mg PO BID #0 12/16/19 [Rx] Follow up Appointment(s)/Referral(s): Yuan Wharton MD [Primary Care Provider] - 1-2 days [facility], [NON-STAFF] - As Needed Patient Instructions/Handouts: Altered Mental Status (ED) Activity/Diet/Wound Care/Special Instructions: ac q AC-TID with ss insulin
--- NOTE | 2019-12-16 14:14 | PN ---
PROGRESS NOTE DATE OF SERVICE: 12/16/2019 REASON FOR FOLLOW UP: Enterococcus urinary tract infection. INTERVAL HISTORY: The patient is afebrile. The patient is more awake and alert today. She is breathing comfortably. No chest pain or cough. No abdominal pain or any new symptoms. PHYSICAL EXAMINATION: Blood pressure 142/63 with a pulse of 85, temperature 97.4. She is 97% on room air. General description is an elderly female lying in bed in no distress. Respiratory system: Unlabored breathing. Clear to auscultation anteriorly. Heart S1, S2. Regular rate and rhythm. ABDOMEN: Soft, no tenderness. LABS: White count 9.6, creatinine 0.72. DIAGNOSTIC IMPRESSION AND PLAN: Patient with Enterococcus faecium urinary tract infection sensitive to vancomycin. Overall improvement on Vanco was started yesterday, we will give her a 7 day course of IV Vanco, pharmacy to dose through midline. Continue supportive care. MMODL / IJN: [id number] /
== END 2019-12-16 18:22 | DRG 689 ==
LOC: EC 02:28 → 4SSUR 04:11 → OBSVTOIN 12-15 08:24
PROVIDERS: ADMIT Hospitalist; ATTEND Hospitalist
DX: N30.00 Acute cystitis without hematuria (principal); G93.41 Metabolic encephalopathy; N17.9 Acute kidney failure, unspecified; G30.1 Alzheimer's disease with late onset; F02.80 Dementia in other diseases classified elsewhere, unspecified severity, without behavioral disturbance, psychotic disturbance, mood disturbance, and anxiety; B95.2 Enterococcus as the cause of diseases classified elsewhere; E11.9 Type 2 diabetes mellitus without complications; I10 Essential (primary) hypertension; Z11.59 Encounter for screening for other viral diseases; Z79.4 Long term (current) use of insulin; Z79.899 Other long term (current) drug therapy; Z87.440 Personal history of urinary (tract) infections; Z90.49 Acquired absence of other specified parts of digestive tract; Z86.19 Personal history of other infectious and parasitic diseases
CPT/HCPCS: 36415; 71045; 80048; 80053; 81001; 83605; 85025; 85610; 85730; 87040; 87077; 87086; 87186; 87635; 93005; 99285

== ENCOUNTER 2020-03-11 07:39 | Observation (INO) | payer MEDICARE, BC ==
[2020-03-11] MEDS ORDERED: PANTOPRAZOLE 40 MG/10 ML VIAL IVP STA (07:58)
--- NOTE | 2020-03-11 08:02 | ED ---
General Adult HPI - General Chief complaint: GI Bleed Stated complaint: GI bleed Time Seen by Provider: 03/11/20 07:43 Source: patient, EMS, RN notes reviewed Mode of arrival: EMS Limitations: altered mental status - History of Present Illness Initial comments: Patient is a pleasant 84-year-old female presenting from jail with reported GI bleed. Patient had a single episode of blood mixed with stool. Patient is a poor historian and offers very little significant information. Patient states she feels fine and has no complaints. No abdominal pain. No vomiting. No fever. - Related Data Home Medications Medication Instructions Recorded Confirmed Donepezil [Aricept] 10 mg PO HS@209905/10/17 03/11/20 Losartan Potassium 75 mg PO DAILY@89905/10/17 03/11/20 amLODIPine [Norvasc] 10 mg PO DAILY@89905/10/17 03/11/20 Magnesium Oxide [Mag-Ox] 400 mg PO BID@00,209910/21/17 03/11/20 Memantine [Namenda] 5 mg PO BID@00,209910/21/17 03/11/20 Pantoprazole [Protonix] 40 mg PO HS@209910/21/17 03/11/20 Acetaminophen [Tylenol] 650 mg PO Q6H PRN 12/13/19 03/11/20 Dicyclomine [Bentyl] 20 mg PO QID 12/13/19 03/11/20 Liraglutide [Victoza 3-Lorenzo] 1.2 mg SQ HS@209912/13/19 03/11/20 Metoprolol Tartrate [Lopressor] 50 mg PO BID@00,209912/13/19 03/11/20 Clotrimazole/Betamethasone Dip 1 applic TOPICAL Q12H 03/11/20 03/11/20 [Lotrisone Cream] Ensure Clear 1 can PO TID@0900,1400,199903/11/20 03/11/20 Brooke Lotion 1 applic TOPICAL Q6H PRN 03/11/20 03/11/20 metFORMIN HCL ER [Glucophage Xr] 500 mg PO BID@0900,1700 03/11/20 03/11/20 Allergies Allergy/AdvReac Type Severity Reaction Status Date / Time No Known Allergies Allergy Verified 03/11/20 08:27 Review of Systems ROS Statement: Those systems with pertinent positive or pertinent negative responses have been documented in the HPI. ROS Other: All systems not noted in ROS Statement are negative. Constitutional: Denies: fever Eyes: Denies: eye pain ENT: Denies: ear pain Respiratory: Denies: cough Cardiovascular: Denies: chest pain Endocrine: Denies: fatigue Gastrointestinal: Reports: as per HPI. Denies: abdominal pain, nausea, vomiting Genitourinary: Denies: dysuria Musculoskeletal: Denies: back pain Skin: Denies: rash Neurological: Denies: weakness Past Medical History Past Medical History: Dementia, Diabetes Mellitus, GERD/Reflux, Hyperlipidemia, Hypertension Additional Past Medical History / Comment(s): uti-ecoli, IBS, ulcerative colitis History of Any Multi-Drug Resistant Organisms: ESBL Date of last positivie culture/infection: 05/10/17 MDRO Source:: URINE ESBL Past Surgical History: Cholecystectomy Past Anesthesia/Blood Transfusion Reactions: No Reported Reaction Past Psychological History: No Psychological Hx Reported Smoking Status: Unknown if ever smoked Past Alcohol Use History: None Reported Past Drug Use History: None Reported - Past Family History Father History Unknown: Yes Mother History Unknown: Yes General Exam Limitations: altered mental status General appearance: alert, in no apparent distress Head exam: Present: normocephalic Eye exam: Present: normal appearance Neck exam: Present: normal inspection Respiratory exam: Present: normal lung sounds bilaterally Cardiovascular Exam: Present: regular rate, normal rhythm GI/Abdominal exam: Present: soft. Absent: distended, tenderness, guarding, rebound, rigid Rectal exam: Present: normal inspection. Absent: bloody stool External exam: Present: normal external exam Extremities exam: Present: normal inspection Neurological exam: Present: alert Psychiatric exam: Present: normal affect, normal mood Skin exam: Present: normal color Course Vital Signs 03/11/20 07:41 Temperature 97.7 F Pulse Rate 67 Respiratory 18 Rate Blood Pressure 152/76 O2 Sat by Pulse 98 Oximetry EKG Findings - EKG Comments: EKG Findings:: Normal sinus rhythm 67. WA 14. QRS 78. QT 388. QTC 409. Normal axis. Normal QRS. No acute ST change. Medical Decision Making - Medical Decision Making Patient reevaluated and updated. Case discussed with Dr. Vegas, who will admit for Dr. Wharton. - Lab Data Result diagrams: 03/11/20 08:09 03/11/20 08:09 Lab Results 03/11/20 03/11/20 03/11/20 Range/Units 08:09 08:09 08:09 WBC 8.6 (3.8-10.6) k/uL RBC 4.05 (3.80-5.40) m/uL Hgb 11.2 L (11.4-16.0) gm/dL Hct 35.6 (34.0-46.0) % MCV 88.0 (80.0-100.0) fL MCH 27.8 (25.0-35.0) pg MCHC 31.5 (31.0-37.0) g/dL RDW 16.3 H (11.5-15.5) % Plt Count 484 H (150-450) k/uL Neutrophils % 63 % Lymphocytes % 26 % Monocytes % 5 % Eosinophils % 4 % Basophils % 1 % Neutrophils # 5.4 (1.3-7.7) k/uL Lymphocytes # 2.3 (1.0-4.8) k/uL Monocytes # 0.4 (0-1.0) k/uL Eosinophils # 0.3 (0-0.7) k/uL Basophils # 0.1 (0-0.2) k/uL Anisocytosis Slight PT 9.8 (9.0-12.0) sec INR 0.9 (<1.2) APTT 23.1 (22.0-30.0) sec Sodium 138 (137-145) mmol/L Potassium 5.1 (3.5-5.1) mmol/L Chloride 108 H (98-107) mmol/L Carbon Dioxide 19 L (22-30) mmol/L Anion Gap 11 mmol/L BUN 26 H (7-17) mg/dL Creatinine 1.39 H (0.52-1.04) mg/dL Est GFR (CKD-EPI)AfAm 40 (>60 ml/min/1.73 sqM) Est GFR (CKD-EPI)NonAf 34 (>60 ml/min/1.73 sqM) Glucose 131 H (74-99) mg/dL Calcium 9.2 (8.4-10.2) mg/dL Total Bilirubin 0.4 (0.2-1.3) mg/dL AST 19 (14-36) U/L ALT 9 (4-34) U/L Alkaline Phosphatase 74 (38-126) U/L Total Protein 6.3 (6.3-8.2) g/dL Albumin 3.5 (3.5-5.0) g/dL Urine Color Urine Appearance (Clear) Urine pH (5.0-8.0) Ur Specific Penn (1.001-1.035) Urine Protein (Negative) Urine Glucose (UA) (Negative) Urine Ketones (Negative) Urine Blood (Negative) Urine Nitrite (Negative) Urine Bilirubin (Negative) Urine Urobilinogen (<2.0) mg/dL Ur Leukocyte Esterase (Negative) Urine RBC (0-5) /hpf Urine WBC (0-5) /hpf Urine WBC Clumps (None) /hpf Urine Bacteria (None) /hpf Hyaline Casts (0-2) /lpf Urine Mucus (None) /hpf Stool Occult Blood (Negative) 03/11/20 03/11/20 Range/Units 08:09 08:09 WBC (3.8-10.6) k/uL RBC (3.80-5.40) m/uL Hgb (11.4-16.0) gm/dL Hct (34.0-46.0) % MCV (80.0-100.0) fL MCH (25.0-35.0) pg MCHC (31.0-37.0) g/dL RDW (11.5-15.5) % Plt Count (150-450) k/uL Neutrophils % % Lymphocytes % % Monocytes % % Eosinophils % % Basophils % % Neutrophils # (1.3-7.7) k/uL Lymphocytes # (1.0-4.8) k/uL Monocytes # (0-1.0) k/uL Eosinophils # (0-0.7) k/uL Basophils # (0-0.2) k/uL Anisocytosis PT (9.0-12.0) sec INR (<1.2) APTT (22.0-30.0) sec Sodium (137-145) mmol/L Potassium (3.5-5.1) mmol/L Chloride (98-107) mmol/L Carbon Dioxide (22-30) mmol/L Anion Gap mmol/L BUN (7-17) mg/dL Creatinine (0.52-1.04) mg/dL Est GFR (CKD-EPI)AfAm (>60 ml/min/1.73 sqM) Est GFR (CKD-EPI)NonAf (>60 ml/min/1.73 sqM) Glucose (74-99) mg/dL Calcium (8.4-10.2) mg/dL Total Bilirubin (0.2-1.3) mg/dL AST (14-36) U/L ALT (4-34) U/L Alkaline Phosphatase (38-126) U/L Total Protein (6.3-8.2) g/dL Albumin (3.5-5.0) g/dL Urine Color Yellow Urine Appearance Cloudy H (Clear) Urine pH 5.0 (5.0-8.0) Ur Specific Penn 1.020 (1.001-1.035) Urine Protein 1+ H (Negative) Urine Glucose (UA) Negative (Negative) Urine Ketones Negative (Negative) Urine Blood Trace H (Negative) Urine Nitrite Positive H (Negative) Urine Bilirubin Negative (Negative) Urine Urobilinogen <2.0 (<2.0) mg/dL Ur Leukocyte Esterase Large H (Negative) Urine RBC 5 (0-5) /hpf Urine WBC 147 H (0-5) /hpf Urine WBC Clumps Few H (None) /hpf Urine Bacteria Many H (None) /hpf Hyaline Casts 1 (0-2) /lpf Urine Mucus Rare H (None) /hpf Stool Occult Blood Positive H (Negative) Disposition Clinical Impression: UTI (urinary tract infection), Lower gastrointestinal hemorrhage Disposition: ADMITTED IP TO THIS HOSP Is patient prescribed a controlled substance at d/c from ED?: No Referrals: Yuan Wharton MD [Primary Care Provider] - 1-2 days Decision Time: 08:51
[2020-03-11] MEDS: SODIUM CHLORIDE 0.9% 1,000 ML IV STA ×2 (08:15→17:18)
[2020-03-11 08:24] LABS: Anisocytosis Slight; Basophils # (A) 0.1 k/uL (0-0.2); Basophils % (A) 1 %; Eosinophils # (A) 0.3 k/uL (0-0.7); Eosinophils % (A) 4 %; HCT 35.6 % (34.0-46.0); HGB 11.2 gm/dL (11.4-16.0); Lymphocytes # (A) 2.3 k/uL (1.0-4.8); Lymphocytes % (A) 26 %; MCH 27.8 pg (25.0-35.0); MCHC 31.5 g/dL (31.0-37.0); Monocytes # (A) 0.4 k/uL (0-1.0); Monocytes % (A) 5 %; Neutrophils # (A) 5.4 k/uL (1.3-7.7); Neutrophils % (A) 63 %; Platelet Count 484 k/uL (150-450); RBC 4.05 m/uL (3.80-5.40); RDW 16.3 % (11.5-15.5); WBC 8.6 k/uL (3.8-10.6)
[2020-03-11 08:37] LABS: Albumin 3.5 g/dL (3.5-5.0); Calcium 9.2 mg/dL (8.4-10.2); Potassium 5.1 mmol/L (3.5-5.1); Total Bilirubin 0.4 mg/dL (0.2-1.3); Total Protein 6.3 g/dL (6.3-8.2)
[2020-03-11 08:41] LABS: INR 0.9 (<1.2); Partial Thromboplastin Time 23.1 sec (22.0-30.0); Prothrombin Time 9.8 sec (9.0-12.0)
[2020-03-11 08:44] LABS: Appearance,Urine Cloudy (Clear); Bacteria,Urine Many /hpf; Bilirubin,Urine Negative (Negative); Blood,Urine Trace (Negative); Color,Urine Yellow; Glucose,Urine (UA) Negative (Negative); Hyaline Casts,Urine 1 /lpf (0-2); Ketones,Urine Negative (Negative); Leukocyte Esterase,Urine Large (Negative); Mucus,Urine Rare /hpf; Nitrite,Urine Positive (Negative); Protein,Urine 1+ (Negative); RBC,Urine 5 /hpf (0-5); Urobilinogen,Urine <2.0 mg/dL (<2.0); WBC,Urine 147 /hpf (0-5)
[2020-03-11] MEDS ORDERED: NALOXONE 0.4 MG/ML 1 ML VIAL IV PRN (08:51)
[2020-03-11] MEDS ORDERED: ACETAMINOPHEN TAB 325 MG TAB PO PRN (08:53)
[2020-03-11] MEDS ORDERED: NON FORMULARY DRUG (Ensure Clear 1 CAN) PO SCH (09:00)
[2020-03-11] MEDS ORDERED: PANTOPRAZOLE 40 MG/10 ML VIAL IV SCH (09:00)
[2020-03-11] MEDS: METOPROLOL TARTRATE 50 MG TAB PO SCH ×2 (11:00→20:55)
[2020-03-11] MEDS: MEMANTINE 5 MG TAB PO SCH ×2 (11:00→20:55)
[2020-03-11] MEDS: metFORMIN 500 MG TAB PO SCH ×2 (11:00→17:11)
[2020-03-11] MEDS: MAGNESIUM OXIDE 400 MG TAB PO SCH ×2 (17:11→20:58)
[2020-03-11] MEDS: LOSARTAN 50 MG TAB PO SCH (17:15)
[2020-03-11] MEDS: amLODIPine 10 MG TAB PO SCH (17:16)
[2020-03-11] MEDS: SODIUM CHLORIDE 0.9% 1,000 ML IV SCH ×2 (17:18→20:58)
[2020-03-11 17:41] LABS: Anisocytosis Slight; Basophils % (A) 1 %; Eosinophils # (A) 0.3 k/uL (0-0.7); Eosinophils % (A) 4 %; HCT 33.9 % (34.0-46.0); HGB 10.7 gm/dL (11.4-16.0); Lymphocytes # (A) 2.2 k/uL (1.0-4.8); Lymphocytes % (A) 31 %; MCHC 31.7 g/dL (31.0-37.0); MCV 88.3 fL (80.0-100.0); Mean Platelet Volume 7.5; Monocytes # (A) 0.5 k/uL (0-1.0); Monocytes % (A) 7 %; Neutrophils # (A) 3.9 k/uL (1.3-7.7); Neutrophils % (A) 55 %; Platelet Count 463 k/uL (150-450); RBC 3.84 m/uL (3.80-5.40); RDW 16.4 % (11.5-15.5); WBC 7.1 k/uL (3.8-10.6)
--- NOTE | 2020-03-11 17:43 | P.HPIM ---
History of Present Illness H&P Date: 03/11/20 Chief Complaint: Lower GI bleed History of presenting complaint: He pleasant 84 years old female with past medical history of dementia, diabetes mellitus, hypertension. Lives with 2 sons. Sent in for having blood mixed with stool. Patient is pleasantly demented. Does not know better She is here.. Does not seem to have any abdominal pain. No fever no chills reported. History extremely limited. Review of systems: Difficult to obtain as patient not really able to answer questions. May speak only occasional words. Past medical history to include: Dementia, diabetes, hypertension, GERD, ulcerative colitis Social history: Lives with 2 sons. Unable to state the patient has history of alcohol or smoking. Family history: Patient cannot tell Physical examination: VITAL SIGNS: 97.7, 67, 18, 152/76, 98% room air GENERAL: BMI 23.5, laying in bed, awake comfortable. EYES: Pupils equal. Conjunctiva normal. HEENT: External appearance of nose and ears normal, oral cavity grossly normal. NECK: JVD not raised; masses not palpable. HEART: First and second heart sounds are normal; no edema. LUNGS: Respiratory rate normal; clear to auscultation. ABDOMEN: Soft, nontender, liver spleen not palpable, no masses palpable. PSYCH: [Patient can't name. Does not know that she is otherwise she is here. Does not bother month. l. NEUROLOGICAL: Cranial nerves grossly intact; no facial asymmetry, power and sensation grossly intact. LYMPHATICS: No lymph nodes palpable in the axilla and neck INVESTIGATIONS, reviewed in the clinical context: White count 8.6 hemoglobin 11.2 platelets 484 potassium 5.1 bun 26 creatinine 1.39 Previous testing: From 12/06/2019: Bun 17 creatinine 0.7 to-hemoglobin 12.2 Assessment: -Acute lower GI bleed with stool mixed with blood. Abdomen is nontender. Could be diverticular bleed. Expected to settle down and hopefully on its own. -Possible acute kidney injury creatinine has gone from 0.7-1.39 last 3 months -Acute metabolic encephalopathy from above -Advanced cognitive impairment-Late onset Alzheimer's dementia -Diabetes mellitus type 2 -Essential hypertension -Acute UTI with cystitis Plan: Patient put on IV fluids. Initially put on clear liquids. Gentle hydration. Switch to PPI by mouth. GI consulted. On IV ceftriaxone. Given age prognosis guarded. Past Medical History Past Medical History: Dementia, Diabetes Mellitus, GERD/Reflux, Hyperlipidemia, Hypertension Additional Past Medical History / Comment(s): uti-ecoli, IBS, ulcerative colitis History of Any Multi-Drug Resistant Organisms: ESBL Date of last positivie culture/infection: 05/10/17 MDRO Source:: URINE ESBL Past Surgical History: Cholecystectomy Past Anesthesia/Blood Transfusion Reactions: No Reported Reaction Past Psychological History: No Psychological Hx Reported Smoking Status: Unknown if ever smoked Past Alcohol Use History: None Reported Past Drug Use History: None Reported - Past Family History Father History Unknown: Yes Mother History Unknown: Yes Medications and Allergies Home Medications Medication Instructions Recorded Confirmed Type Donepezil [Aricept] 10 mg PO HS@209905/10/17 03/11/20 History Losartan Potassium 75 mg PO DAILY@89905/10/17 03/11/20 History amLODIPine [Norvasc] 10 mg PO DAILY@0900 05/10/17 03/11/20 History Magnesium Oxide [Mag-Ox] 400 mg PO BID@0900,209910/21/17 03/11/20 History Memantine [Namenda] 5 mg PO BID@0900,209910/21/17 03/11/20 History Pantoprazole [Protonix] 40 mg PO HS@209910/21/17 03/11/20 History Acetaminophen [Tylenol] 650 mg PO Q6H PRN 12/13/19 03/11/20 History Dicyclomine [Bentyl] 20 mg PO QID 12/13/19 03/11/20 History Liraglutide [Victoza 3-Lorenzo] 1.2 mg SQ HS@209912/13/19 03/11/20 History Metoprolol Tartrate [Lopressor] 50 mg PO BID@0900,209912/13/19 03/11/20 History Clotrimazole/Betamethasone Dip 1 applic TOPICAL Q12H 03/11/20 03/11/20 History [Lotrisone Cream] Ensure Clear 1 can PO TID@0900,1400,199903/11/20 03/11/20 History Brooke Lotion 1 applic TOPICAL Q6H PRN 03/11/20 03/11/20 History metFORMIN HCL ER [Glucophage Xr] 500 mg PO BID@0900,1700 03/11/20 03/11/20 History Allergies Allergy/AdvReac Type Severity Reaction Status Date / Time No Known Allergies Allergy Verified 03/11/20 08:27 Physical Exam Vitals: Vital Signs Temp Pulse Resp BP Pulse Ox 03/11/20 09:07 78 16 123/62 97 03/11/20 07:41 97.7 F 67 18 152/76 98 Intake and Output 03/10/20 03/11/20 03/11/20 22:59 06:59 14:59 Other: Weight 60.101 kg Results CBC & Chem 7: 03/11/20 08:09 03/11/20 08:09 Labs: Abnormal Lab Results - Last 24 Hours (Table) 03/11/20 03/11/20 03/11/20 Range/Units 08:09 08:09 08:09 Hgb 11.2 L (11.4-16.0) gm/dL RDW 16.3 H (11.5-15.5) % Plt Count 484 H (150-450) k/uL Chloride 108 H (98-107) mmol/L Carbon Dioxide 19 L (22-30) mmol/L BUN 26 H (7-17) mg/dL Creatinine 1.39 H (0.52-1.04) mg/dL Glucose 131 H (74-99) mg/dL Urine Appearance (Clear) Urine Protein (Negative) Urine Blood (Negative) Urine Nitrite (Negative) Ur Leukocyte Esterase (Negative) Urine WBC (0-5) /hpf Urine WBC Clumps (None) /hpf Urine Bacteria (None) /hpf Urine Mucus (None) /hpf Stool Occult Blood Positive H (Negative) 03/11/20 Range/Units 08:09 Hgb (11.4-16.0) gm/dL RDW (11.5-15.5) % Plt Count (150-450) k/uL Chloride (98-107) mmol/L Carbon Dioxide (22-30) mmol/L BUN (7-17) mg/dL Creatinine (0.52-1.04) mg/dL Glucose (74-99) mg/dL Urine Appearance Cloudy H (Clear) Urine Protein 1+ H (Negative) Urine Blood Trace H (Negative) Urine Nitrite Positive H (Negative) Ur Leukocyte Esterase Large H (Negative) Urine WBC 147 H (0-5) /hpf Urine WBC Clumps Few H (None) /hpf Urine Bacteria Many H (None) /hpf Urine Mucus Rare H (None) /hpf Stool Occult Blood (Negative)
[2020-03-11] MEDS: DICYCLOMINE 20 MG TAB PO SCH ×2 (18:15→20:55)
[2020-03-11] MEDS: PANTOPRAZOLE 40 MG TABLET PO SCH (18:15)
[2020-03-11 20:36] LABS: Glucose,Whole Blood 157 mg/dL (75-99)
[2020-03-11] MEDS: LIRAGLUTIDE 1.2 MG SQ SCH (20:55)
[2020-03-11] MEDS: DONEPEZIL 10 MG TAB PO SCH (20:55)
[2020-03-11] MEDS: CLOTRIMAZOLE/BETAMETH 1-0.05% CREAM 45 GM TUBE TOPICAL SCH (20:56)
[2020-03-12] MEDS: CLOTRIMAZOLE/BETAMETH 1-0.05% CREAM 45 GM TUBE TOPICAL SCH ×2 (05:08→17:40)
[2020-03-12 07:18] LABS: Glucose,Whole Blood 130 mg/dL (75-99)
[2020-03-12] MEDS: LOSARTAN 50 MG TAB PO SCH (07:45)
[2020-03-12] MEDS: METOPROLOL TARTRATE 50 MG TAB PO SCH ×2 (07:46→21:10)
[2020-03-12] MEDS: PANTOPRAZOLE 40 MG TABLET PO SCH ×2 (07:46→17:39)
[2020-03-12] MEDS: amLODIPine 10 MG TAB PO SCH (07:46)
[2020-03-12] MEDS: MAGNESIUM OXIDE 400 MG TAB PO SCH ×2 (07:46→21:10)
[2020-03-12] MEDS: metFORMIN 500 MG TAB PO SCH ×2 (07:46→17:39)
[2020-03-12] MEDS: DICYCLOMINE 20 MG TAB PO SCH ×4 (07:47→21:10)
[2020-03-12] MEDS: SODIUM CHLORIDE 0.9% 1,000 ML IV SCH (07:47)
[2020-03-12 08:41] LABS: Anisocytosis Slight; Basophils % (A) 1 %; Eosinophils # (A) 0.3 k/uL (0-0.7); Eosinophils % (A) 5 %; HCT 34.9 % (34.0-46.0); HGB 10.9 gm/dL (11.4-16.0); Hypochromasia Slight; Lymphocytes # (A) 1.5 k/uL (1.0-4.8); Lymphocytes % (A) 20 %; MCH 27.9 pg (25.0-35.0); MCHC 31.4 g/dL (31.0-37.0); Mean Platelet Volume 7.5; Monocytes # (A) 0.5 k/uL (0-1.0); Monocytes % (A) 7 %; Neutrophils # (A) 4.8 k/uL (1.3-7.7); Neutrophils % (A) 67 %; Platelet Count 441 k/uL (150-450); RBC 3.92 m/uL (3.80-5.40); RDW 16.3 % (11.5-15.5); WBC 7.2 k/uL (3.8-10.6)
[2020-03-12 08:54] LABS: Calcium 8.6 mg/dL (8.4-10.2); Potassium 4.8 mmol/L (3.5-5.1)
[2020-03-12] MEDS ORDERED: PANTOPRAZOLE 40 MG/10 ML VIAL IV SCH (09:00)
[2020-03-12] MEDS: MEMANTINE 5 MG TAB PO SCH ×2 (09:53→21:10)
--- NOTE | 2020-03-12 12:59 | P.CONS ---
History of Present Illness - Reason for Consult Consult date: 03/11/20 GI bleed Requesting physician: Scott Vegas - Chief Complaint Blood per rectum - History of Present Illness 84-year-old female with a medical history significant for diabetes mellitus, hypertension and dementia who presented to the hospital due to concern over blood per rectum. Of note given the patient's underlying mental status history is been taken in conversation with the patient, on review of the medical record and in conversation with the medical team. Apparently the patient had a witnessed episode of some bright red blood per rectum with bowel movement. No further episodes of bleeding since admission to the hospital. She does report that she has had multiple colonoscopies in the past. She is denying any abdominal pain at this time. Questionable history of ulcerative colitis in the past the patient is unable to provide any information regarding this. Review of Systems ROS unobtainable: due to mental status Past Medical History Past Medical History: Dementia, Diabetes Mellitus, GERD/Reflux, Hyperlipidemia, Hypertension Additional Past Medical History / Comment(s): uti-ecoli, IBS, ulcerative colitis History of Any Multi-Drug Resistant Organisms: ESBL Year Discovered:: 05/10/17 MDRO Source:: URINE ESBL Past Surgical History: Cholecystectomy Past Anesthesia/Blood Transfusion Reactions: No Reported Reaction Past Psychological History: No Psychological Hx Reported Smoking Status: Unknown if ever smoked Past Alcohol Use History: None Reported Past Drug Use History: None Reported - Past Family History Father History Unknown: Yes Mother History Unknown: Yes Medications and Allergies Home Medications Medication Instructions Recorded Confirmed Type Donepezil [Aricept] 10 mg PO HS@209905/10/17 03/11/20 History Losartan Potassium 75 mg PO DAILY@89905/10/17 03/11/20 History amLODIPine [Norvasc] 10 mg PO DAILY@00 05/10/17 03/11/20 History Magnesium Oxide [Mag-Ox] 400 mg PO BID@899,209910/21/17 03/11/20 History Memantine [Namenda] 5 mg PO BID@00,209910/21/17 03/11/20 History Pantoprazole [Protonix] 40 mg PO HS@2100 10/21/17 03/11/20 History Acetaminophen [Tylenol] 650 mg PO Q6H PRN 12/13/19 03/11/20 History Dicyclomine [Bentyl] 20 mg PO QID 12/13/19 03/11/20 History Liraglutide [Victoza 3-Lorenzo] 1.2 mg SQ HS@209912/13/19 03/11/20 History Metoprolol Tartrate [Lopressor] 50 mg PO BID@0900,209912/13/19 03/11/20 History Clotrimazole/Betamethasone Dip 1 applic TOPICAL Q12H 03/11/20 03/11/20 History [Lotrisone Cream] Ensure Clear 1 can PO TID@0900,1400,199903/11/20 03/11/20 History Brooke Lotion 1 applic TOPICAL Q6H PRN 03/11/20 03/11/20 History metFORMIN HCL ER [Glucophage Xr] 500 mg PO BID@0900,1700 03/11/20 03/11/20 Histo ry Allergies Allergy/AdvReac Type Severity Reaction Status Date / Time No Known Allergies Allergy Verified 03/11/20 08:27 Physical Exam Vitals: Vital Signs Temp Pulse Resp BP Pulse Ox 03/11/20 09:07 78 16 123/62 97 03/11/20 07:41 97.7 F 67 18 152/76 98 Intake and Output 03/10/20 03/11/20 03/11/20 22:59 06:59 14:59 Other: Weight 60.101 kg On physical examination, patient appears comfortable in no apparent distress. HEAD: Normocephalic, atraumatic. EYES: No scleral icterus. No conjunctival injection. MOUTH: No lesions, tongue midline. NECK: Trachea midline, no gross abnormalities. CHEST: Decreased air and all vergara. HEART: S1-S2 appreciated. ABDOMEN: Soft, nontender difficulty. Bowel sounds are positive. No organomegaly. No guarding or rigidity. EXTREMITIES: No pedal edema. SKIN: No rashes, no jaundice. NEUROLOGIC: Alert and oriented to person. No focal deficits. Results CBC & Chem 7: 03/12/20 08:05 03/12/20 08:05 Labs: Abnormal Lab Results - Last 24 Hours (Table) 03/11/20 03/11/20 03/11/20 Range/Units 08: 08: 08:09 Hgb 11.2 L (11.4-16.0) gm/dL RDW 16.3 H (11.5-15.5) % Plt Count 484 H (150-450) k/uL Chloride 108 H (98-107) mmol/L Carbon Dioxide 19 L (22-30) mmol/L BUN 26 H (7-17) mg/dL Creatinine 1.39 H (0.52-1.04) mg/dL Glucose 131 H (74-99) mg/dL Urine Appearance (Clear) Urine Protein (Negative) Urine Blood (Negative) Urine Nitrite (Negative) Ur Leukocyte Esterase (Negative) Urine WBC (0-5) /hpf Urine WBC Clumps (None) /hpf Urine Bacteria (None) /hpf Urine Mucus (None) /hpf Stool Occult Blood Positive H (Negative) 03/11/20 Range/Units 08:09 Hgb (11.4-16.0) gm/dL RDW (11.5-15.5) % Plt Count (150-450) k/uL Chloride (98-107) mmol/L Carbon Dioxide (22-30) mmol/L BUN (7-17) mg/dL Creatinine (0.52-1.04) mg/dL Glucose (74-99) mg/dL Urine Appearance Cloudy H (Clear) Urine Protein 1+ H (Negative) Urine Blood Trace H (Negative) Urine Nitrite Positive H (Negative) Ur Leukocyte Esterase Large H (Negative) Urine WBC 147 H (0-5) /hpf Urine WBC Clumps Few H (None) /hpf Urine Bacteria Many H (None) /hpf Urine Mucus Rare H (None) /hpf Stool Occult Blood (Negative) Assessment and Plan (1) Lower gastrointestinal hemorrhage Narrative/Plan: 84-year-old female presents for evaluation of blood per rectum. No further episodes since presentation. Stable.. Patient is demented at baseline and 5 limited history. She does report colonoscopy etiology may be AVM, diverticular bleed, stercoral ulcer or other etiology. Current Visit: Yes Status: Acute Code(s): K92.2 - GASTROINTESTINAL HEMORRHAGE, UNSPECIFIED SNOMED Code(s): 54349494 Plan: Supportive care Okay for liquid diet Continue to monitor hemoglobin and hematocrit and transfuse as needed Continue to monitor stool output Given age and multiple medical comorbidities we'll continue with conservative medical management, if precipitous fall in hemoglobin occurs or further signs or symptoms of GI bleeding will consider endoscopic evaluation Thank you for allowing us to participate in the care of the patient
[2020-03-12 17:14] LABS: Glucose,Whole Blood 133 mg/dL (75-99)
[2020-03-12 20:06] LABS: Glucose,Whole Blood 163 mg/dL (75-99)
[2020-03-12] MEDS: DONEPEZIL 10 MG TAB PO SCH (21:10)
[2020-03-12] MEDS: LIRAGLUTIDE 1.2 MG SQ SCH (21:11)
--- NOTE | 2020-03-13 02:09 | P.PN ---
Subjective Progress Note Date: 03/12/20 Principal diagnosis: Acute lower GI bleed He pleasant 84 years old female with past medical history of dementia, diabetes mellitus, hypertension. Lives with 2 sons. Sent in for having blood mixed with stool. Patient is pleasantly demented. Does not know better She is here.. Does not seem to have any abdominal pain. No fever no chills reported. History extremely limited. 03/12/2020 Patient is currently lying in the bed comfortably. No further episodes of ble eding since admission to the hospital. Denied any complaints of abdominal pain. Patient is a poor historian otherwise. Patient has been afebrile. No chest pain or shortness of breath. Appears to b e comfortable in bed. Hemoglobin is 10.9 today. Was 10.7 yesterday. GI has seen the patient recom mended to continue supportive care and monitor H&H. Continue with conservative measures at this time. Review of systems: Difficult to obtain as patient not really able to answer questions. May speak only occasional words. Active Medications Acetaminophen (Tylenol Tab) 650 mg PO Q6H PRN PRN Reason: Pain or Fever > 100.5 Amlodipine Besylate (Norvasc) 10 mg PO DAILY@0900 [facility] Last Admin: 03/12/20 07:46 Dose: 10 mg Documented by: Betamethasone/Clotrimazole (Lotrisone) 1 applic TOPICAL Q12H [facility] Last Admin: 03/12/20 17:40 Dose: 1 applic Documented by: Dicyclomine HCl (Bentyl) 20 mg PO QID [facility] Last Admin: 03/12/20 21:10 Dose: 20 mg Documented by: Donepezil HCl (Aricept) 10 mg PO HS@2100 [facility] Last Admin: 03/12/20 21:10 Dose: 10 mg Documented by: Sodium Chloride (Saline 0.9%) 1,000 mls @ 75 mls/hr IV .[id number] [facility] Last Admin: 03/12/20 07:47 Dose: 75 mls/hr Documented by: Ceftriaxone Sodium 1 gm/ (Sodium Chloride) 50 mls @ 100 mls/hr IVPB Q24HR [facility] Last Admin: 03/12/20 07:45 Dose: 100 mls/hr Documented by: Losartan Potassium (Cozaar) 75 mg PO DAILY@0900 [facility] Last Admin: 03/12/20 07:45 Dose: 75 mg Documented by: Magnesium Oxide (Mag-Ox) 400 mg PO BID@0900,2100 [facility] Last Admin: 03/12/20 21:10 Dose: 400 mg Documented by: Memantine (Namenda) 5 mg PO BID@0900,2100 [facility] Last Admin: 03/12/20 21:10 Dose: 5 mg Documented by: Metformin HCl (Glucophage) 500 mg PO BID@0900,1700 [facility] Last Admin: 03/12/20 17:39 Dose: 500 mg Documented by: Metoprolol Tartrate (Lopressor) 50 mg PO BID@0900,2100 [facility] Last Admin: 03/12/20 21:10 Dose: 50 mg Documented by: Naloxone HCl (Narcan) 0.2 mg IV Q2M PRN PRN Reason: Opioid Reversal Patient's Own ( Liraglutide [Victoza 3-Lorenzo] 1.2 Mg) 1.2 mg SQ HS@2099 [facility] Last Admin: 03/12/20 21:11 Dose: Not Given Documented by: Pantoprazole Sodium (Protonix) 40 mg PO AC-BID [facility] Last Admin: 03/12/20 17:39 Dose: 40 mg Documented by: Objective - Vital Signs Vital signs: Vital Signs Temp 98.3 F 03/12/20 20:41 Pulse 69 03/12/20 20:41 Resp 20 03/12/20 20:41 BP 151/66 03/12/20 20:41 Pulse Ox 98 03/12/20 20:41 Intake & Output 03/12/20 03/12/20 03/13/20 06:59 18:59 06:59 Intake Total 1065 300 Balance 1065 300 Intake: Intake, IV Titration 825 300 Amount Sodium Chloride 0.9% 1, 825 300 000 ml @ 75 mls/hr IV . [id number] [facility] Rx#:[id number] Oral 240 Other: Voiding Method Incontinent Diaper Diaper Incontinent Incontinent # Voids 1 1 # Bowel Movements 1 - Exam GENERAL: BMI 23.5, laying in bed, awake comfortable. EYES: Pupils equal. Conjunctiva normal. HEENT: External appearance of nose and ears normal, oral cavity grossly normal. NECK: JVD not raised; masses not palpable. HEART: First and second heart sounds are normal; no edema. LUNGS: Respiratory rate normal; clear to auscultation. ABDOMEN: Soft, nontender, liver spleen not palpable, no masses palpable. PSYCH: [Patient can't name. Does not know that she is otherwise she is here. Does not bother month. l. NEUROLOGICAL: Cranial nerves grossly intact; no facial asymmetry, power and sensation grossly intact. LYMPHATICS: No lymph nodes palpable in the axilla and neck - Labs CBC & Chem 7: 03/12/20 08:05 03/12/20 08:05 Labs: Abnormal Lab Results - Last 24 Hours (Table) 03/12/20 03/12/20 03/12/20 Range/Units 07:09 08:05 08:05 Hgb 10.9 L (11.4-16.0) gm/dL RDW 16.3 H (11.5-15.5) % Chloride 110 H (98-107) mmol/L BUN 20 H (7-17) mg/dL Creatinine 1.14 H (0.52-1.04) mg/dL Glucose 127 H (74-99) mg/dL POC Glucose (mg/dL) 130 H (75-99) mg/dL 03/12/20 03/12/20 Range/Units 17:10 20:04 Hgb (11.4-16.0) gm/dL RDW (11.5-15.5) % Chloride (98-107) mmol/L BUN (7-17) mg/dL Creatinine (0.52-1.04) mg/dL Glucose (74-99) mg/dL POC Glucose (mg/dL) 133 H 163 H (75-99) mg/dL Microbiology - Last 24 Hours (Table) 03/11/20 08:09 Urine Culture - Preliminary Urine,Voided Gram Neg Bacilli 03/11/20 09:33 Blood Culture - Preliminary Blood No Growth after 24 hours Assessment and Plan Assessment: INVESTIGATIONS, reviewed in the clinical context: White count 8.6 hemoglobin 11.2 platelets 484 potassium 5.1 bun 26 creatinine 1.39 Previous testing: From 12/06/2019: Bun 17 creatinine 0.7 to-hemoglobin 12.2 Assessment: -Acute lower GI bleed with stool mixed with blood. Abdomen is nontender. Could be diverticular bleed. Expected to settle down and hopefully on its own. -Possible acute kidney injury creatinine has gone from 0.7-1.39 last 3 months -Acute metabolic encephalopathy from above -Advanced cognitive impairment-Late onset Alzheimer's dementia -Diabetes mellitus type 2 -Essential hypertension -Acute UTI with cystitis Plan: Patient put on IV fluids. Initially put on clear liquids. Gentle hydration. Switch to PPI by mouth. GI is following.Continue with conservative management. Follow-up urine culture reports.. On IV ceftriaxone. Given age prognosis guarded. Time with Patient: Greater than 30
[2020-03-13] MEDS: SODIUM CHLORIDE 0.9% 1,000 ML IV SCH ×2 (04:29→18:02)
[2020-03-13] MEDS: CLOTRIMAZOLE/BETAMETH 1-0.05% CREAM 45 GM TUBE TOPICAL SCH ×2 (05:30→18:02)
[2020-03-13 06:56] LABS: Glucose,Whole Blood 132 mg/dL (75-99)
[2020-03-13 08:11] LABS: Anisocytosis Slight; Basophils % (A) 0 %; Eosinophils # (A) 0.4 k/uL (0-0.7); Eosinophils % (A) 5 %; HCT 31.8 % (34.0-46.0); Lymphocytes # (A) 2.1 k/uL (1.0-4.8); Lymphocytes % (A) 30 %; MCH 27.7 pg (25.0-35.0); MCHC 31.5 g/dL (31.0-37.0); MCV 87.8 fL (80.0-100.0); Mean Platelet Volume 7.6; Monocytes # (A) 0.6 k/uL (0-1.0); Monocytes % (A) 8 %; Neutrophils # (A) 3.9 k/uL (1.3-7.7); Neutrophils % (A) 54 %; Platelet Count 436 k/uL (150-450); RBC 3.62 m/uL (3.80-5.40); RDW 16.1 % (11.5-15.5); WBC 7.1 k/uL (3.8-10.6)
[2020-03-13] MEDS: LOSARTAN 50 MG TAB PO SCH (08:43)
[2020-03-13] MEDS: PANTOPRAZOLE 40 MG TABLET PO SCH ×2 (08:44→18:01)
[2020-03-13] MEDS: DICYCLOMINE 20 MG TAB PO SCH ×4 (08:44→21:10)
[2020-03-13] MEDS: MEMANTINE 5 MG TAB PO SCH ×2 (08:49→21:00)
[2020-03-13] MEDS: METOPROLOL TARTRATE 50 MG TAB PO SCH ×2 (08:49→21:00)
[2020-03-13] MEDS: amLODIPine 10 MG TAB PO SCH (08:49)
[2020-03-13] MEDS: MAGNESIUM OXIDE 400 MG TAB PO SCH ×2 (08:49→21:00)
[2020-03-13] MEDS: metFORMIN 500 MG TAB PO SCH ×2 (08:50→18:02)
--- NOTE | 2020-03-13 09:51 | P.PN ---
Subjective Progress Note Date: 03/12/20 Objective - Vital Signs Vital signs: Vital Signs Temp 97.3 F L 03/12/20 11:20 Pulse 55 L 03/12/20 11:20 Resp 18 03/12/20 11:20 BP 141/68 03/12/20 11:20 Pulse Ox 99 03/12/20 11:20 Intake & Output 03/11/20 03/12/20 03/12/20 18:59 06:59 18:59 Intake Total 1065 Balance 1065 Weight 60.101 kg Intake: Intake, IV Titration 825 Amount Sodium Chloride 0.9% 1, 825 000 ml @ 75 mls/hr IV . [id number] [facility] Rx#:[id number] Oral 240 Other: Voiding Method Incontinent Incontinent # Voids 2 1 1 - Labs CBC & Chem 7: 03/13/20 07:36 03/12/20 08:05 Labs: Abnormal Lab Results - Last 24 Hours (Table) 03/11/20 03/11/20 03/12/20 Range/Units 17:19 20:30 07:09 Hgb 10.7 L (11.4-16.0) gm/dL Hct 33.9 L (34.0-46.0) % RDW 16.4 H (11.5-15.5) % Plt Count 463 H (150-450) k/uL Chloride (98-107) mmol/L BUN (7-17) mg/dL Creatinine (0.52-1.04) mg/dL Glucose (74-99) mg/dL POC Glucose (mg/dL) 157 H 130 H (75-99) mg/dL 03/12/20 03/12/20 Range/Units 08:05 08:05 Hgb 10.9 L (11.4-16.0) gm/dL Hct (34.0-46.0) % RDW 16.3 H (11.5-15.5) % Plt Count (150-450) k/uL Chloride 110 H (98-107) mmol/L BUN 20 H (7-17) mg/dL Creatinine 1.14 H (0.52-1.04) mg/dL Glucose 127 H (74-99) mg/dL POC Glucose (mg/dL) (75-99) mg/dL Microbiology - Last 24 Hours (Table) 03/11/20 09:33 Blood Culture - Preliminary Blood No Growth after 24 hours 03/11/20 08:09 Urine Culture - Preliminary Urine,Voided Assessment and Plan (1) Lower gastrointestinal hemorrhage Narrative/Plan: 84-year-old female presents for evaluation of blood per rectum. No further episodes since presentation. Stable hemoglobin. Patient is demented at baseline and 5 limited history. She does report colonoscopy etiology may be AVM, diverticular bleed, stercoral ulcer or other etiology. Current Visit: Yes Status: Acute Code(s): K92.2 - GASTROINTESTINAL HEMORRHAGE, UNSPECIFIED SNOMED Code(s): 51389694 Plan: Supportive care Okay to advance diet Continue to monitor hemoglobin and hematocrit and transfuse as needed Continue to monitor stool output Given age and multiple medical comorbidities we'll continue with conservative medical management, if precipitous fall in hemoglobin occurs or further signs or symptoms of GI bleeding will consider endoscopic evaluation Thank you for allowing us to participate in the care of the patient
[2020-03-13 11:05] LABS: Glucose,Whole Blood 135 mg/dL (75-99)
[2020-03-13 16:55] LABS: Glucose,Whole Blood 101 mg/dL (75-99)
[2020-03-13 19:56] LABS: Glucose,Whole Blood 98 mg/dL (75-99)
[2020-03-13] MEDS: MEROPENEM 1 GM in SODIUM CHLORIDE 0.9% 100 ML IVPB SCH (20:57)
[2020-03-13] MEDS: DONEPEZIL 10 MG TAB PO SCH (21:01)
[2020-03-13] MEDS: LIRAGLUTIDE 1.2 MG SQ SCH (22:03)
[2020-03-14] MEDS: SODIUM CHLORIDE 0.9% 1,000 ML IV SCH ×2 (05:28→08:18)
[2020-03-14] MEDS: CLOTRIMAZOLE/BETAMETH 1-0.05% CREAM 45 GM TUBE TOPICAL SCH ×2 (05:29→17:51)
[2020-03-14 07:15] LABS: Glucose,Whole Blood 94 mg/dL (75-99)
[2020-03-14] MEDS: MEROPENEM 1 GM in SODIUM CHLORIDE 0.9% 100 ML IVPB SCH (08:18)
[2020-03-14] MEDS: DICYCLOMINE 20 MG TAB PO SCH ×4 (08:19→20:12)
[2020-03-14] MEDS: MAGNESIUM OXIDE 400 MG TAB PO SCH ×2 (08:19→20:09)
[2020-03-14] MEDS: METOPROLOL TARTRATE 50 MG TAB PO SCH ×2 (08:19→20:09)
[2020-03-14] MEDS: metFORMIN 500 MG TAB PO SCH ×2 (08:19→17:51)
[2020-03-14] MEDS: LOSARTAN 50 MG TAB PO SCH (08:19)
[2020-03-14] MEDS: amLODIPine 10 MG TAB PO SCH (08:19)
[2020-03-14] MEDS: MEMANTINE 5 MG TAB PO SCH ×2 (08:19→20:09)
[2020-03-14] MEDS: PANTOPRAZOLE 40 MG TABLET PO SCH ×2 (08:19→17:51)
[2020-03-14 08:49] LABS: Basophils % (A) 1 %; Eosinophils # (A) 0.3 k/uL (0-0.7); Eosinophils % (A) 5 %; HCT 33.9 % (34.0-46.0); HGB 10.8 gm/dL (11.4-16.0); Hypochromasia Slight; Lymphocytes % (A) 29 %; MCH 28.2 pg (25.0-35.0); MCV 88.1 fL (80.0-100.0); Mean Platelet Volume 8.2; Monocytes # (A) 0.4 k/uL (0-1.0); Monocytes % (A) 6 %; Neutrophils # (A) 3.9 k/uL (1.3-7.7); Neutrophils % (A) 58 %; Platelet Count 406 k/uL (150-450); RBC 3.85 m/uL (3.80-5.40); RDW 15.8 % (11.5-15.5); WBC 6.7 k/uL (3.8-10.6)
[2020-03-14 10:22] VITALS: BMI 23.4
[2020-03-14 10:49] LABS: Glucose,Whole Blood 98 mg/dL (75-99)
[2020-03-14 14:49] LABS: Appearance,Urine Turbid (Clear); Bacteria,Urine Few /hpf; Bilirubin,Urine Negative (Negative); Blood,Urine Small (Negative); Color,Urine Yellow; Glucose,Urine (UA) Negative (Negative); Ketones,Urine 1+ (Negative); Leukocyte Esterase,Urine Large (Negative); Mucus,Urine Rare /hpf; Nitrite,Urine Negative (Negative); PH, Urine 5.5 (5.0-8.0); Protein,Urine 1+ (Negative); RBC,Urine 43 /hpf (0-5); Specific Gravity,Urine 1.018 (1.001-1.035); Squamous Epithelial Cell,Urine 2 /hpf (0-4); Urobilinogen,Urine <2.0 mg/dL (<2.0); WBC,Urine >182 /hpf (0-5)
--- NOTE | 2020-03-14 15:50 | P.PN ---
Subjective Progress Note Date: 03/14/20 Principal diagnosis: Acute lower GI bleed This is a pleasant 84 years old female with past medical history of dementia, diabetes mellitus, hypertension. Lives with 2 sons. Sent in for having blood mixed with stool. Patient is pleasantly demented. Does not know better She is here.. Does not seem to have any abdominal pain. No fever no chills reported. History extremely limited. 03/12/2020 Patient is currently lying in the bed comfortably. No further episodes of bleeding since admission to the hospital. Denied any complaints of abdominal pain. Patient is a poor historian otherwise. Patient has been afebrile. No chest pain or shortness of breath. Appears to be comfortable in bed. Hemoglobin is 10.9 today. Was 10.7 yesterday. GI has seen the patient recommen ded to continue supportive care and monitor H&H. Continue with conservative measures at this time. 03/14/2020 Patient is seen and evaluated and follow-up and urine cultures finalized showing E. coli with ESBL in the urine. Infectious disease consulted and patient was initiated on meropenem although transitioned Invanz. Patient continues to have some abdominal discomfort and did have a bowel movement today per nursing staff. Specimen was loose and odorous and sent down to test for C. diff and is currently pending. Hemoglobin is stable at 10.8 today. Will repeat a.m. labs. No reports of chest pain, palpitations, or shortness of breath. Patient is afebrile. Objective - Vital Signs Vital signs: Vital Signs Temp 97.8 F 03/14/20 11:23 Pulse 51 L 03/14/20 11:23 Resp 16 03/14/20 11:23 BP 154/68 03/14/20 11:23 Pulse Ox 99 03/14/20 11:23 Intake & Output 03/13/20 03/14/20 03/14/20 18:59 06:59 18:59 Weight 60.101 kg Other: Voiding Method Diaper Diaper Diaper Incontinent Incontinent Incontinent # Voids 3 0 2 # Bowel Movements 0 2 - Exam GENERAL: BMI 23.5, laying in bed, awake comfortable. EYES: Pupils equal. Conjunctiva normal. HEENT: External appearance of nose and ears normal, oral cavity grossly normal. NECK: JVD not raised; masses not palpable. HEART: First and second heart sounds are normal; no edema. LUNGS: Respiratory rate normal; clear to auscultation. ABDOMEN: Soft, mildly tender upon palpation, liver spleen not palpable, no masses palpable. PSYCH: Unable to fully assess, patient barely speaks NEUROLOGICAL: Cranial nerves grossly intact; no facial asymmetry, power and sensation grossly intact. LYMPHATICS: No lymph nodes palpable in the axilla and neck - Labs CBC & Chem 7: 03/14/20 08:01 03/12/20 08:05 Labs: Abnormal Lab Results - Last 24 Hours (Table) 03/13/20 03/14/20 03/14/20 Range/Units 16:53 08:01 14:33 Hgb 10.8 L (11.4-16.0) gm/dL Hct 33.9 L (34.0-46.0) % RDW 15.8 H (11.5-15.5) % POC Glucose (mg/dL) 101 H (75-99) mg/dL Urine Appearance Turbid H (Clear) Urine Protein 1+ H (Negative) Urine Ketones 1+ H (Negative) Urine Blood Small H (Negative) Ur Leukocyte Esterase Large H (Negative) Urine RBC 43 H (0-5) /hpf Urine WBC >182 H (0-5) /hpf Urine WBC Clumps Many H (None) /hpf Urine Bacteria Few H (None) /hpf Urine Mucus Rare H (None) /hpf Microbiology - Last 24 Hours (Table) 03/11/20 09:33 Blood Culture - Preliminary Blood No Growth after 72 hours 03/11/20 08:09 Urine Culture - Final Urine,Voided Escherichia coli Assessment and Plan Assessment: -Acute lower GI bleed with stool mixed with blood. Abdomen is nontender. Could be diverticular bleed. Expected to settle down and hopefully on its own. -Possible acute kidney injury creatinine has gone from 0.7-1.39 last 3 months -Acute metabolic encephalopathy from above -Advanced cognitive impairment-Late onset Alzheimer's dementia -Diabetes mellitus type 2 -Essential hypertension -Acute UTI with cystitis Plan: Continue current medications, management, and symptomatic treatment. GI following as needed and recommending conservative medical management with no immediate endoscopic interventions scheduled. Hemoglobin is stable at 10.8 today. Urine cultures finalized showing E. coli with ESBL and patient was initiated on meropenem. Infectious disease consulted and transitioned antibiotics to Invanz. Repeat urinalysis continues to show urinary tract infection and patient will possibly need IV antibiotic therapy at the [facility]. Fo llow-up urine culture reports. Due to multiple complex medical issues, prognosis is guarded. Further recommendations to follow. Consider possible discharge in 24-48 hours. Case management and social work are following as patient will be going to [facility] on the [place] once stabilized discharged.
[2020-03-14 17:02] LABS: Glucose,Whole Blood 126 mg/dL (75-99)
[2020-03-14] MEDS: LIRAGLUTIDE 1.2 MG SQ SCH (20:09)
[2020-03-14] MEDS: DONEPEZIL 10 MG TAB PO SCH (20:09)
[2020-03-14 20:10] LABS: Glucose,Whole Blood 139 mg/dL (75-99)
[2020-03-14] MEDS ORDERED: ERTAPENEM 1 GM in SODIUM CHLORIDE 0.9% 50 ML IVPB SCH (21:00)
--- NOTE | 2020-03-14 22:33 | P.PN ---
Subjective Progress Note Date: 03/13/20 Principal diagnosis: Acute lower GI bleed He pleasant 84 years old female with past medical history of dementia, diabetes mellitus, hypertension. Lives with 2 sons. Sent in for having blood mixed with stool. Patient is pleasantly demented. Does not know better She is here.. Does not seem to have any abdominal pain. No fever no chills reported. History extremely limited. 03/12/2020 Patient is currently lying in the bed comfortably. No further episodes of ble eding since admission to the hospital. Denied any complaints of abdominal pain. Patient is a poor historian otherwise. Patient has been afebrile. No chest pain or shortness of breath. Appears to b e comfortable in bed. Hemoglobin is 10.9 today. Was 10.7 yesterday. GI has seen the patient recom mended to continue supportive care and monitor H&H. Continue with conservative measures at this time. 03/13/2020 Patient is currently lying in the bed comfortably. Awake alert and able to communicate slowly. No complaints of abdominal pain. Tolerating oral diet slowly. No fever no chills. No dysuria or hematuria. No further episodes of GI bleed. Hemoglobin is 10.0 today. Urine culture showed gram-negative bacilli. Patient is being continued on ceftriaxone at this time. Review of systems: Difficult to obtain as patient not really able to answer questions. May speak only occasional words. Active Medications Acetaminophen (Tylenol Tab) 650 mg PO Q6H PRN PRN Reason: Pain or Fever > 100.5 Amlodipine Besylate (Norvasc) 10 mg PO DAILY@0900 [facility] Last Admin: 03/12/20 07:46 Dose: 10 mg Documented by: Betamethasone/Clotrimazole (Lotrisone) 1 applic TOPICAL Q12H [facility] Last Admin: 03/12/20 17:40 Dose: 1 applic Documented by: Dicyclomine HCl (Bentyl) 20 mg PO QID [facility] Last Admin: 03/12/20 21:10 Dose: 20 mg Documented by: Donepezil HCl (Aricept) 10 mg PO HS@2100 [facility] Last Admin: 03/12/20 21:10 Dose: 10 mg Documented by: Sodium Chloride (Saline 0.9%) 1,000 mls @ 75 mls/hr IV .[id number] [facility] Last Admin: 03/12/20 07:47 Dose: 75 mls/hr Documented by: Ceftriaxone Sodium 1 gm/ (Sodium Chloride) 50 mls @ 100 mls/hr IVPB Q24HR [facility] Last Admin: 03/12/20 07:45 Dose: 100 mls/hr Documented by: Losartan Potassium (Cozaar) 75 mg PO DAILY@0900 [facility] Last Admin: 03/12/20 07:45 Dose: 75 mg Documented by: Magnesium Oxide (Mag-Ox) 400 mg PO BID@0900,2100 [facility] Last Admin: 03/12/20 21:10 Dose: 400 mg Documented by: Memantine (Namenda) 5 mg PO BID@0900,2100 [facility] Last Admin: 03/12/20 21:10 Dose: 5 mg Documented by: Metformin HCl (Glucophage) 500 mg PO BID@0900,1700 [facility] Last Admin: 03/12/20 17:39 Dose: 500 mg Documented by: Metoprolol Tartrate (Lopressor) 50 mg PO BID@0900,2100 [facility] Last Admin: 03/12/20 21:10 Dose: 50 mg Documented by: Naloxone HCl (Narcan) 0.2 mg IV Q2M PRN PRN Reason: Opioid Reversal Patient's Own ( Liraglutide [Victoza 3-Lorenzo] 1.2 Mg) 1.2 mg SQ HS@2100 [facility] Last Admin: 03/12/20 21:11 Dose: Not Given Documented by: Pantoprazole Sodium (Protonix) 40 mg PO AC-BID [facility] Last Admin: 03/12/20 17:39 Dose: 40 mg Documented by: Objective - Vital Signs Vital signs: Vital Signs Temp 97.6 F 03/14/20 04:40 Pulse 56 L 03/14/20 04:40 Resp 16 03/14/20 04:40 BP 117/48 03/14/20 04:40 Pulse Ox 98 03/14/20 04:40 Intake & Output 03/13/20 03/14/20 03/14/20 18:59 06:59 18:59 Weight 60.101 kg Other: Voiding Method Diaper Diaper Diaper Incontinent Incontinent Incontinent # Voids 3 0 # Bowel Movements 0 - Exam GENERAL: BMI 23.5, laying in bed, awake comfortable. EYES: Pupils equal. Conjunctiva normal. HEENT: External appearance of nose and ears normal, oral cavity grossly normal. NECK: JVD not raised; masses not palpable. HEART: First and second heart sounds are normal; no edema. LUNGS: Respiratory rate normal; clear to auscultation. ABDOMEN: Soft, nontender, liver spleen not palpable, no masses palpable. PSYCH: [Patient can't name. Does not know that she is otherwise she is here. Does not bother month. l. NEUROLOGICAL: Cranial nerves grossly intact; no facial asymmetry, power and sensation grossly intact. LYMPHATICS: No lymph nodes palpable in the axilla and neck - Labs CBC & Chem 7: 03/14/20 08:01 03/12/20 08:05 Labs: Abnormal Lab Results - Last 24 Hours (Table) 03/13/20 03/13/20 03/14/20 Range/Units 11:04 16:53 08:01 Hgb 10.8 L (11.4-16.0) gm/dL Hct 33.9 L (34.0-46.0) % RDW 15.8 H (11.5-15.5) % POC Glucose (mg/dL) 135 H 101 H (75-99) mg/dL Microbiology - Last 24 Hours (Table) 03/11/20 08:09 Urine Culture - Final Urine,Voided Escherichia coli 03/11/20 09:33 Blood Culture - Preliminary Blood No Growth after 48 hours Assessment and Plan Assessment: INVESTIGATIONS, reviewed in the clinical context: White count 8.6 hemoglobin 11.2 platelets 484 potassium 5.1 bun 26 creatinine 1.39 Previous testing: From 12/06/2019: Bun 17 creatinine 0.7 to-hemoglobin 12.2 Assessment: -Acute lower GI bleed with stool mixed with blood. Abdomen is nontender. Could be diverticular bleed. Expected to settle down and hopefully on its own. - acute kidney injury creatinine has gone from 0.7-1.39 last 3 months -Acute metabolic encephalopathy from above -Advanced cognitive impairment-Late onset Alzheimer's dementia -Diabetes mellitus type 2 -Essential hypertension -Acute UTI with cystitis with gm-ve bacillli Plan: Patient put on IV fluids. Initially put on clear liquids. Gentle hydration. Switch to PPI by mouth. GI is following.Continue with conservative management. Follow-up urine culture reports.. On IV ceftriaxone. Given age prognosis guarded.
--- NOTE | 2020-03-14 23:14 | P.CONS ---
History of Present Illness - Reason for Consult Consult date: 03/14/20 ESBL E. coli urinary tract infection Requesting physician: Rosa Luque - Chief Complaint Bleeding per rectum x one day - History of Present Illness Patient is 84-year-old female residential resident patient has been sent to the ER On 03/11/2020 after the patient was noticed to have some blood mixed in the stools patient subsequently has been evaluated by the physician and the patient was admitted to the hospital for GI workup patient has been evaluate d by GI services and no endoscopy was recommended patient also noticed to have a positive UA with concern for possible UTI for the patient has been treated with the Rocephin + the patient urine culture came back positive for ESBL E. coli patient antibiotic was switched over to meropenem 1 g every 12 hours infectious and he was consented today for further management of antibiotic therapy patient has been afebrile during this hospital admission and did have a normal white count however the nursing staff the patient did have a very cloudy and foul- smelling urine, and the patient seemed to be slightly more lethargic and confused since the patient has been admitted to the hospital patient herself was unable to work and reliable history so most information has been obtained from review the chart and talking to the nursing staff Review of Systems Positive points has been mentioned in HPI complete review could not be obtained because of his underlying mental status Past Medical History Past Medical History: Dementia, Diabetes Mellitus, GERD/Reflux, Hyperlipidemia, Hypertension Additional Past Medical History / Comment(s): uti-ecoli, IBS, ulcerative colitis History of Any Multi-Drug Resistant Organisms: ESBL Year Discovered:: 03/13/20 MDRO Source:: URINE ESBL Past Surgical History: Cholecystectomy Past Anesthesia/Blood Transfusion Reactions: No Reported Reaction Past Psychological History: No Psychological Hx Reported Smoking Status: Unknown if ever smoked Past Alcohol Use History: None Reported Past Drug Use History: None Reported - Past Family History Father History Unknown: Yes Mother History Unknown: Yes Medications and Allergies Home Medications Medication Instructions Recorded Confirmed Type Donepezil [Aricept] 10 mg PO HS@2100 05/10/17 03/11/20 History Losartan Potassium 75 mg PO DAILY@0900 05/10/17 03/11/20 History amLODIPine [Norvasc] 10 mg PO DAILY@0900 05/10/17 03/11/20 History Magnesium Oxide [Mag-Ox] 400 mg PO BID@09,209910/21/17 03/11/20 History Memantine [Namenda] 5 mg PO BID@0900,209910/21/17 03/11/20 History Pantoprazole [Protonix] 40 mg PO HS@209910/21/17 03/11/20 History Acetaminophen [Tylenol] 650 mg PO Q6H PRN 12/13/19 03/11/20 History Dicyclomine [Bentyl] 20 mg PO QID 12/13/19 03/11/20 History Liraglutide [Victoza 3-Lorenzo] 1.2 mg SQ HS@209912/13/19 03/11/20 History Metoprolol Tartrate [Lopressor] 50 mg PO BID@00,209912/13/19 03/11/20 History Clotrimazole/Betamethasone Dip 1 applic TOPICAL Q12H 03/11/20 03/11/20 History [Lotrisone Cream] Ensure Clear 1 can PO TID@0900,1400,199903/11/20 03/11/20 History Brooke Lotion 1 applic TOPICAL Q6H PRN 03/11/20 03/11/20 History metFORMIN HCL ER [Glucophage Xr] 500 mg PO BID@0900,1700 03/11/20 03/11/20 History Allergies Allergy/AdvReac Type Severity Reaction Status Date / Time No Known Allergies Allergy Verified 03/11/20 08:27 Physical Exam Vitals: Vital Signs Temp Pulse Resp BP Pulse Ox 03/14/20 11:23 97.8 F 51 L 16 154/68 99 03/14/20 04:40 97.6 F 56 L 16 117/48 98 03/13/20 20:49 99.2 F 60 16 138/77 97 Intake and Output 03/13/20 03/14/20 03/14/20 22:59 06:59 14:59 Other: Voiding Method Diaper Diaper Incontinent Incontinent # Voids 0 0 # Bowel Movements 0 Weight 60.101 kg GENERAL DESCRIPTION: An elderly female lying in bed, no distress. No tachypnea or accessory muscle of respiration use. HEENT: Shows Pallor , no scleral icterus. Oral mucous membrane is dry. No pharyngeal erythema or thrush NECK: Trachea central, no thyromegaly. LUNGS: Unlabored breathing. Clear to auscultation anteriorly. No wheeze or crackle. HEART: S1, S2, regular rate and rhythm. No loud murmur ABDOMEN: Soft, no tenderness , guarding or rigidity, no organomegaly EXTREMITIES: No edema of feet. SKIN: No rash, no masses palpable. NEUROLOGICAL: The patient is sleepy lethargic orientation could not be determined Results CBC & Chem 7: 03/14/20 08:01 03/12/20 08:05 Labs: Abnormal Lab Results - Last 24 Hours (Table) 03/13/20 03/14/20 Range/Units 16:53 08:01 Hgb 10.8 L (11.4-16.0) gm/dL Hct 33.9 L (34.0-46.0) % RDW 15.8 H (11.5-15.5) % POC Glucose (mg/dL) 101 H (75-99) mg/dL Microbiology - Last 24 Hours (Table) 03/11/20 09:33 Blood Culture - Preliminary Blood No Growth after 72 hours 03/11/20 08:09 Urine Culture - Final Urine,Voided Escherichia coli Assessment and Plan Assessment: 1-patient noticed to have a positive UA in this patient who did have a foul- smelling cloudy urine per the nursing staff has been cleaning the patient she seems slightly more lethargic and sleepy today with concern for symptomatic urinary tract infection. Urine culture has been finalized as ESBL likely the infected pathogen (1) Infection due to ESBL-producing Escherichia coli Current Visit: Yes Status: Acute Code(s): A49.8 - OTHER BACTERIAL INFECTIONS OF UNSPECIFIED SITE; Z16.12 - EXTENDED SPECTRUM BETA LACTAMASE (ESBL) RESISTANCE SNOMED Code(s): 415158251 (2) UTI (urinary tract infection) Current Visit: Yes Status: Acute Code(s): N39.0 - URINARY TRACT INFECTION, SITE NOT SPECIFIED SNOMED Code(s): 14070847 Plan: 1-antibiotic adjusted to Invanz 1 g IVPB daily 2-we will obtain a repeat UA and culture straight cath for a clean-catch specimen. If the repeat a UA is positive recommend obtaining an midline and plan 7 day course of IV Invanz which can be done at the residential, plan of care was discussed in detail with the RN taking care of the patient We will follow on clinical condition and cultures to further adjust medication if needed Thank you for this consultation will follow this patient with you Time with Patient: Greater than 30
[2020-03-15] MEDS: SODIUM CHLORIDE 0.9% 1,000 ML IV SCH (05:21)
[2020-03-15] MEDS: CLOTRIMAZOLE/BETAMETH 1-0.05% CREAM 45 GM TUBE TOPICAL SCH (05:21)
[2020-03-15 07:04] LABS: Glucose,Whole Blood 118 mg/dL (75-99)
[2020-03-15 09:22] LABS: Calcium 8.4 mg/dL (8.4-10.2); Potassium 4.8 mmol/L (3.5-5.1)
[2020-03-15 09:26] LABS: Anisocytosis Slight; Basophils % (A) 1 %; Eosinophils # (A) 0.4 k/uL (0-0.7); Eosinophils % (A) 5 %; HCT 32.7 % (34.0-46.0); Hypochromasia Slight; Lymphocytes # (A) 1.7 k/uL (1.0-4.8); Lymphocytes % (A) 24 %; MCH 27.6 pg (25.0-35.0); MCHC 30.6 g/dL (31.0-37.0); Mean Platelet Volume 9.1; Monocytes # (A) 0.5 k/uL (0-1.0); Monocytes % (A) 7 %; Neutrophils # (A) 4.3 k/uL (1.3-7.7); Neutrophils % (A) 62 %; Platelet Count 388 k/uL (150-450); RBC 3.63 m/uL (3.80-5.40); RDW 16.5 % (11.5-15.5)
[2020-03-15] MEDS: PANTOPRAZOLE 40 MG TABLET PO SCH (09:41)
[2020-03-15] MEDS: amLODIPine 10 MG TAB PO SCH (09:41)
[2020-03-15] MEDS: MAGNESIUM OXIDE 400 MG TAB PO SCH (09:41)
[2020-03-15] MEDS: DICYCLOMINE 20 MG TAB PO SCH (09:41)
[2020-03-15] MEDS: metFORMIN 500 MG TAB PO SCH (09:41)
[2020-03-15] MEDS: LOSARTAN 50 MG TAB PO SCH (09:41)
[2020-03-15] MEDS: METOPROLOL TARTRATE 50 MG TAB PO SCH (09:41)
[2020-03-15] MEDS: MEMANTINE 5 MG TAB PO SCH (09:42)
[2020-03-15 11:25] LABS: Glucose,Whole Blood 154 mg/dL (75-99)
--- NOTE | 2020-03-15 11:57 | P.DS ---
Providers Date of admission: 03/11/20 08:51 Expected date of discharge: 03/15/20 Attending physician: Scott Vegas Consults: 03/14/20 11:03 Consult Physician Routine Consulting Provider: Esau Rey Consult Reason/Comments: ESBL E coli Do you want consulting provider notified?: Yes Primary care physician: Yuan [facility] Hospital Course: Final diagnosis -Acute lower GI bleed with stool mixed with blood, Possible diverticular bleed -Possible acute kidney injury creatinine has gone from 0.7-1.39 last 3 months -Acute metabolic encephalopathy from above -Advanced cognitive impairment-Late onset Alzheimer's dementia -Diabetes mellitus type 2 -Essential hypertension -Acute UTI with cystitis, With E. coli and ESBL in the urine Discharge disposition Patient is being discharged in a stable condition with guarded prognosis to [facility]. Patient will follow-up with Dr. Grande upon discharge. Patient will continue with a short course of IV antibiotics in the form of Invanz 1 g daily for the next 7 days and then may discontinue. Patient did receive a midline prior to discharge. Total time taken is 35 minutes. History of present illness This is an 83-year-old female who was recently admitted with Acute lower GI bleed as she was found to have blood in the stool and was being closely monitored. Patient was seen and evaluated by GI and monitored closely. GI recommending no surgical intervention at this time. Hemoglobin has been stable and is 10.0 today. Urinalysis was done and patient's urine cultures finalized showing E. coli with ESBL in the urine. Patient received a midline and was evaluated by infectious disease and will be continuing on IV Invanz 1 g daily for the next 7 days and then may discontinue. Patient does have a history of dementia and barely speaks. C. diff testing was negative. Patient was also tested for Covid 19 Which was negative. Currently no reports of chest pain, shortness of breath, or palpitations. Patient is afebrile. No reports of nausea or vomiting and patient is tolerating diet With assistance. Patient will be going to [facility] today. On exam vital signs are stable. Temp is 97.7F, pulse is 50, respirations are 18, blood pressure is 136/54, oxygen saturation is 96% on room air. Cardio S1, S2 are muffled. Respiratory shows diminished breath sounds at the bases with a few scattered rhonchi noted. Abdomen is soft and nontender. Nervous system shows mild diffuse weakness. Please refer to medication reconciliation sheet for a list of medications. Patient Condition at Discharge: Stable Plan - Discharge Summary Discharge Rx Participant: No New Discharge Prescriptions: New Ertapenem [INVanz] 1 gm IVPB HS 7 Days #7 vial Pantoprazole [Protonix] 40 mg PO AC-BID tablet.dr Continue amLODIPine [Norvasc] 10 mg PO DAILY@0900 Donepezil [Aricept] 10 mg PO HS@2100 Losartan Potassium 75 mg PO DAILY@0900 Magnesium Oxide [Mag-Ox] 400 mg PO BID@0900,2100 Memantine [Namenda] 5 mg PO BID@0900,2100 Dicyclomine [Bentyl] 20 mg PO QID Liraglutide [Victoza 3-Lorenzo] 1.2 mg SQ HS@2100 Metoprolol Tartrate [Lopressor] 50 mg PO BID@0900,2100 Acetaminophen [Tylenol] 650 mg PO Q6H PRN PRN Reason: Pain Or Fever > 100.5 Clotrimazole/Betamethasone Dip [Lotrisone Cream] 1 applic TOPICAL Q12H Ensure Clear 1 can PO TID@0900,1400,2000 metFORMIN HCL ER [Glucophage Xr] 500 mg PO BID@0900,1700 Brooke Lotion 1 applic TOPICAL Q6H PRN PRN Reason: PRURITIS Discontinued Pantoprazole [Protonix] 40 mg PO HS@2100 Discharge Medication List Donepezil [Aricept] 10 mg PO HS@2100 05/10/17 [History] Losartan Potassium 75 mg PO DAILY@0900 05/10/17 [History] amLODIPine [Norvasc] 10 mg PO DAILY@0900 05/10/17 [History] Magnesium Oxide [Mag-Ox] 400 mg PO BID@0900,209910/21/17 [History] Memantine [Namenda] 5 mg PO BID@0900,209910/21/17 [History] Acetaminophen [Tylenol] 650 mg PO Q6H PRN 12/13/19 [History] Dicyclomine [Bentyl] 20 mg PO QID 12/13/19 [History] Liraglutide [Victoza 3-Lorenzo] 1.2 mg SQ HS@2100 12/13/19 [History] Metoprolol Tartrate [Lopressor] 50 mg PO BID@0900,2100 12/13/19 [History] Clotrimazole/Betamethasone Dip [Lotrisone Cream] 1 applic TOPICAL Q12H 03/11/20 [History] Ensure Clear 1 can PO TID@0900,1400,2000 03/11/20 [History] Brooke Lotion 1 applic TOPICAL Q6H PRN 03/11/20 [History] metFORMIN HCL ER [Glucophage Xr] 500 mg PO BID@0900,1700 03/11/20 [History] Ertapenem [INVanz] 1 gm IVPB HS 7 Days #7 vial 03/15/20 [Rx] Pantoprazole [Protonix] 40 mg PO AC-BID tablet. 03/15/20 [Rx] Follow up Appointment(s)/Referral(s): Yuan Wharton MD [Primary Care Provider] - 1-2 days Activity/Diet/Wound Care/Special Instructions: Patient is going to [facility] on the [place] Activity as tolerated Continue with IV antibiotic therapy per infectious disease for 7 days and then may discontinue Follow-up with primary care provider upon discharge Follow-up with GI in the outpatient setting as needed Discharge Disposition: TRANSFER TO SNF/ECF
[2020-03-15 12:35] VITALS: BP 129/56; PULSE 55; RESP 16; TEMP 98.2
--- NOTE | 2020-03-15 14:26 | PN ---
PROGRESS NOTE DATE OF SERVICE: 03/15/2020 REASON FOR FOLLOWUP: ESBL E coli urinary tract infection. INTERVAL HISTORY: The patient is currently afebrile. The patient was seen on rounds this morning, breathing comfortably, slightly more awake and alert. No chest pain, no cough, no vomiting and no diarrhea. PHYSICAL EXAMINATION: Blood pressure is 129/56, pulse of 55, temperature 98.2. She is 99% on room air. General description is an elderly female, lying in bed in no distress. RESPIRATORY SYSTEM: Unlabored breathing, clear to auscultation anteriorly. HEART: S1, S2. Regular rate and rhythm. ABDOMEN: Soft, no tenderness. LABS: Hemoglobin is 10.3, white count of 7.0, BUN of 11, creatinine 1.07. DIAGNOSTIC IMPRESSION AND PLAN: Patient has E. coli urinary tract infection, repeat was positive. The patient is currently on Invanz 1 g daily. Continue to finish a course of therapy. Continue supportive care. MMODL / IJN: [id number] /
== END 2020-03-15 13:50 ==
LOC: EC 07:39 → 1SOBS 08:51 → 5NMEDONC 09:16
PROVIDERS: ADMIT Hospitalist; ATTEND Hospitalist
DX: K92.2 Gastrointestinal hemorrhage, unspecified (principal); K92.1 Melena; G93.41 Metabolic encephalopathy; N30.00 Acute cystitis without hematuria; B96.20 Unspecified Escherichia coli [E. coli] as the cause of diseases classified elsewhere; Z16.12 Extended spectrum beta lactamase (ESBL) resistance; G30.1 Alzheimer's disease with late onset; F02.80 Dementia in other diseases classified elsewhere, unspecified severity, without behavioral disturbance, psychotic disturbance, mood disturbance, and anxiety; E11.9 Type 2 diabetes mellitus without complications; K21.9 Gastro-esophageal reflux disease without esophagitis; E78.5 Hyperlipidemia, unspecified; I10 Essential (primary) hypertension; K51.90 Ulcerative colitis, unspecified, without complications; Z20.828 Contact with and (suspected) exposure to other viral communicable diseases; Z79.899 Other long term (current) drug therapy; Z79.84 Long term (current) use of oral hypoglycemic drugs; Z79.52 Long term (current) use of systemic steroids; Z87.440 Personal history of urinary (tract) infections; Z86.19 Personal history of other infectious and parasitic diseases; Z90.49 Acquired absence of other specified parts of digestive tract
CPT/HCPCS: 96361 ×6; 96366 ×3; 96367 ×2; 96365; 96375; 99285; 36415; 93005; 97530 ×2; 97162; 97535 ×2; 97166; 36410; 80053; 80048 ×2; 85025 ×5; 85610; 85730; 82272; 81001 ×2; 87040; 87324; 87086 ×2; 87077; 87186; 87635; G0378 ×5; C1751; J0696 ×3; J2185 ×2; J1335; C9113

== ENCOUNTER 2020-10-03 17:11 | Inpatient (IN) | payer MEDICARE, BC ==
--- NOTE | 2020-10-03 17:58 | ED ---
General Adult HPI - General Chief complaint: Recheck/Abnormal Lab/Rx Stated complaint: Failure to thrive Time Seen by Provider: 10/03/20 17:16 Source: patient Mode of arrival: ambulatory Limitations: no limitations - History of Present Illness Initial comments: Patient is an 85-year-old female, with history of dementia, nonverbal at baseline, diabetes hypertension, presenting to the emergency department via EMS from [facility] the [place] for failure to thrive. According to EMS, patient has not been eating, she also has an ulcer on her buttocks that is not been healing and needs further management. She has had no fevers. Her appetite has been low. Again, patient is nonverbal, no one else in the room to help with history. Patient's vitals are stable upon arrival, afebrile. - Related Data Home Medications Medication Instructions Recorded Confirmed Donepezil [Aricept] 10 mg PO HS@209905/10/17 10/03/20 Losartan Potassium 75 mg PO DAILY@0900 05/10/17 10/03/20 amLODIPine [Norvasc] 10 mg PO DAILY@0900 05/10/17 10/03/20 Magnesium Oxide [Mag-Ox] 400 mg PO BID@0900,209910/21/17 10/03/20 Memantine [Namenda] 5 mg PO BID@0900,209910/21/17 10/03/20 Acetaminophen [Tylenol] 650 mg PO Q6H PRN 12/13/19 10/03/20 Dicyclomine [Bentyl] 20 mg PO QID@,,,12/13/19 10/03/20 Metoprolol Tartrate [Lopressor] 50 mg PO BID@0900,209912/13/19 10/03/20 Ensure Clear 1 can PO TID@0900,1400,199903/11/20 10/03/20 Brooke Lotion 1 applic TOPICAL Q6H PRN 03/11/20 10/03/20 Collagenase [Santyl] 1 applic TOPICAL HS 10/03/20 10/03/20 Famotidine [Pepcid] 20 mg PO HS@209910/03/20 10/03/20 Insulin Aspart [NovoLOG] See Protocol SQ TID@0800,1200,1700 10/03/20 10/03/20 Insulin Degludec [Tresiba 12 unit SQ HS@2100 10/03/20 10/03/20 Flextouch U-100] Losartan Potassium [Cozaar] 25 mg PO DAILY@0900 10/03/20 10/03/20 Pioglitazone [Actos] 30 mg PO DAILY@0900 10/03/20 10/03/20 Prostat Awc 30 ml PO BID@0900,1700 10/03/20 10/03/20 Allergies Allergy/AdvReac Type Severity Reaction Status Date / Time No Known Allergies Allergy Verified 10/03/20 17:45 Review of Systems ROS Statement: Those systems with pertinent positive or pertinent negative responses have been documented in the HPI. ROS Other: All systems not noted in ROS Statement are negative. Past Medical History Past Medical History: Dementia, Diabetes Mellitus, GERD/Reflux, Hyperlipidemia, Hypertension Additional Past Medical History / Comment(s): uti-ecoli, IBS, ulcerative colitis History of Any Multi-Drug Resistant Organisms: ESBL Date of last positivie culture/infection: 06/04/20 MDRO Source:: URINE ESBL Past Surgical History: Cholecystectomy Past Anesthesia/Blood Transfusion Reactions: No Reported Reaction Past Psychological History: No Psychological Hx Reported Smoking Status: Unknown if ever smoked Past Alcohol Use History: None Reported Past Drug Use History: None Reported - Past Family History Father History Unknown: Yes Mother History Unknown: Yes General Exam - General Exam Comments Initial Comments: GENERAL: Patient appears cachectic, nontoxic, no apparent distress, she is nonverbal. HEAD: Atraumatic, normocephalic. EYES: Pupils equal round and reactive to light, extraocular movements intact, sclera anicteric, conjunctiva are normal. Eyelids were unremarkable. ENT: TMs normal, nares patent, oropharynx clear without exudates. Moist mucous membranes. NECK: Normal range of motion, supple without lymphadenopathy or JVD. LUNGS: Unlabored respirations. Breath sounds clear to auscultation bilaterally and equal. No wheezes rales or rhonchi. HEART: Regular rate and rhythm without murmurs, rubs or gallops. ABDOMEN: Soft, nontender, normoactive bowel sounds. No guarding, no rebound. No masses appreciated. : Deferred MUSCULOSKELETAL: Normal extremities with adequate strength and normal range of motion, no pitting or edema. No clubbing or cyanosis. NEUROLOGICAL: Patient is nonverbal at baseline. PSYCH: Normal mood, normal affect. SKIN: Warm, Dry, normal turgor. Patient has large, stage IV decubitus ulcer on her buttock, approximately 10 cm x 8 cm, with strong odor, greenish discharge. Limitations: no limitations Course Vital Signs 10/03/20 10/03/20 17:12 19:20 Temperature 97.8 F 97.9 F Pulse Rate 96 98 Respiratory 18 20 Rate Blood Pressure 118/62 113/56 O2 Sat by Pulse 100 100 Oximetry EKG Findings - EKG Comments: EKG Findings:: Sinus tach with PACs, otherwise normal ECG. Similar to previous on 03/11/2020. Ventricular rate 104, MS interval 124, QT 328. Medical Decision Making - Medical Decision Making Patient is an 85-year-old female sent in from emergency in the legs secondary to large stage IV decubitus ulcer as well as "failure to thrive." Her vital signs are stable upon arrival. Patient does have a large, approximately 10 cm stage IV decubitus ulcer on her buttock's, strong odor and discharge. Labs reveal white count of 18.6, potassium is 5.7, BUN is 128, creatinine is 2.74. CRP is 234, lactic acid is 1.2. Urine does show lots of bacteria, WBC clumps. Rapid Covid is not detected. Patient will be admitted for wound care, REAGAN, UTI. We will consult nephrology, infectious disease and wound care. Patient started on antibiotics, fluids. Patient accepted by N[facility] Evans. Case discussed with Dr. luke. - Lab Data Result diagrams: 10/03/20 18:08 10/03/20 18:08 Lab Results 10/03/20 10/03/20 10/03/20 Range/Units 18:08 18:08 18:08 WBC 18.6 H (3.8-10.6) k/uL RBC 4.03 (3.80-5.40) m/uL Hgb 10.8 L (11.4-16.0) gm/dL Hct 33.1 L (34.0-46.0) % MCV 82.1 (80.0-100.0) fL MCH 26.8 (25.0-35.0) pg MCHC 32.7 (31.0-37.0) g/dL RDW 15.0 (11.5-15.5) % Plt Count 640 H (150-450) k/uL MPV 8.0 Neutrophils % 83 % Lymphocytes % 11 % Monocytes % 3 % Eosinophils % 1 % Basophils % 0 % Neutrophils # 15.5 H (1.3-7.7) k/uL Lymphocytes # 2.1 (1.0-4.8) k/uL Monocytes # 0.6 (0-1.0) k/uL Eosinophils # 0.2 (0-0.7) k/uL Basophils # 0.0 (0-0.2) k/uL PT 10.9 (9.0-12.0) sec INR 1.0 (<1.2) APTT 22.1 (22.0-30.0) sec Sodium (137-145) mmol/L Potassium (3.5-5.1) mmol/L Chloride (98-107) mmol/L Carbon Dioxide (22-30) mmol/L Anion Gap mmol/L BUN (7-17) mg/dL Creatinine (0.52-1.04) mg/dL Est GFR (CKD-EPI)AfAm (>60 ml/min/1.73 sqM) Est GFR (CKD-EPI)NonAf (>60 ml/min/1.73 sqM) Glucose (74-99) mg/dL Plasma Lactic Acid Jian (0.7-2.0) mmol/L Calcium (8.4-10.2) mg/dL Magnesium (1.6-2.3) mg/dL Total Bilirubin (0.2-1.3) mg/dL AST (14-36) U/L ALT (4-34) U/L Alkaline Phosphatase (38-126) U/L C-Reactive Protein (<10.0) mg/L Total Protein (6.3-8.2) g/dL Albumin (3.5-5.0) g/dL Urine Color Yellow Urine Appearance Cloudy H (Clear) Urine pH 5.5 (5.0-8.0) Ur Specific [place] 1.017 (1.001-1.035) Urine Protein 1+ H (Negative) Urine Glucose (UA) Negative (Negative) Urine Ketones 1+ H (Negative) Urine Blood Trace H (Negative) Urine Nitrite Negative (Negative) Urine Bilirubin Negative (Negative) Urine Urobilinogen <2.0 (<2.0) mg/dL Ur Leukocyte Esterase Large H (Negative) Urine RBC 46 H (0-5) /hpf Urine WBC >182 H (0-5) /hpf Urine WBC Clumps Many H (None) /hpf Urine Bacteria Rare H (None) /hpf Urine Yeast (Budding) Few H (None) /hpf Coronavirus (PCR) (Not Detectd) 10/03/20 10/03/20 10/03/20 Range/Units 18:08 18:08 18:08 WBC (3.8-10.6) k/uL RBC (3.80-5.40) m/uL Hgb (11.4-16.0) gm/dL Hct (34.0-46.0) % MCV (80.0-100.0) fL MCH (25.0-35.0) pg MCHC (31.0-37.0) g/dL RDW (11.5-15.5) % Plt Count (150-450) k/uL MPV Neutrophils % % Lymphocytes % % Monocytes % % Eosinophils % % Basophils % % Neutrophils # (1.3-7.7) k/uL Lymphocytes # (1.0-4.8) k/uL Monocytes # (0-1.0) k/uL Eosinophils # (0-0.7) k/uL Basophils # (0-0.2) k/uL PT (9.0-12.0) sec INR (<1.2) APTT (22.0-30.0) sec Sodium 141 (137-145) mmol/L Potassium 5.7 H (3.5-5.1) mmol/L Chloride 107 (98-107) mmol/L Carbon Dioxide 21 L (22-30) mmol/L Anion Gap 13 mmol/L BUN 128 H* (7-17) mg/dL Creatinine 2.74 H (0.52-1.04) mg/dL Est GFR (CKD-EPI)AfAm 17 (>60 ml/min/1.73 sqM) Est GFR (CKD-EPI)NonAf 15 (>60 ml/min/1.73 sqM) Glucose 75 (74-99) mg/dL Plasma Lactic Acid Jian 1.2 (0.7-2.0) mmol/L Calcium 8.6 (8.4-10.2) mg/dL Magnesium 2.6 H (1.6-2.3) mg/dL Total Bilirubin 1.0 (0.2-1.3) mg/dL AST 76 H (14-36) U/L ALT 47 H (4-34) U/L Alkaline Phosphatase 96 (38-126) U/L C-Reactive Protein 234.4 H (<10.0) mg/L Total Protein 6.2 L (6.3-8.2) g/dL Albumin 2.8 L (3.5-5.0) g/dL Urine Color Urine Appearance (Clear) Urine pH (5.0-8.0) Ur Specific [place] (1.001-1.035) Urine Protein (Negative) Urine Glucose (UA) (Negative) Urine Ketones (Negative) Urine Blood (Negative) Urine Nitrite (Negative) Urine Bilirubin (Negative) Urine Urobilinogen (<2.0) mg/dL Ur Leukocyte Esterase (Negative) Urine RBC (0-5) /hpf Urine WBC (0-5) /hpf Urine WBC Clumps (None) /hpf Urine Bacteria (None) /hpf Urine Yeast (Budding) (None) /hpf Coronavirus (PCR) Not Detected (Not Detectd) Disposition Clinical Impression: UTI (urinary tract infection), REAGAN (acute kidney injury), Decubitus ulcer, stage 4 Disposition: ADMITTED IP TO THIS HOSP Condition: Fair Referrals: Yuan Wharton MD [Primary Care Provider] - 1-2 days Decision Date: 10/03/20 Decision Time: 19:55
[2020-10-03 18:28] LABS: Basophils % (A) 0 %; Eosinophils # (A) 0.2 k/uL (0-0.7); Eosinophils % (A) 1 %; HCT 33.1 % (34.0-46.0); HGB 10.8 gm/dL (11.4-16.0); Lymphocytes # (A) 2.1 k/uL (1.0-4.8); Lymphocytes % (A) 11 %; MCH 26.8 pg (25.0-35.0); MCHC 32.7 g/dL (31.0-37.0); MCV 82.1 fL (80.0-100.0); Monocytes # (A) 0.6 k/uL (0-1.0); Monocytes % (A) 3 %; Neutrophils # (A) 15.5 k/uL (1.3-7.7); Neutrophils % (A) 83 %; Platelet Count 640 k/uL (150-450); RBC 4.03 m/uL (3.80-5.40); WBC 18.6 k/uL (3.8-10.6)
[2020-10-03 18:29] LABS: Partial Thromboplastin Time 22.1 sec (22.0-30.0); Prothrombin Time 10.9 sec (9.0-12.0)
[2020-10-03 18:36] LABS: Albumin 2.8 g/dL (3.5-5.0); Calcium 8.6 mg/dL (8.4-10.2); Magnesium 2.6 mg/dL (1.6-2.3); Potassium 5.7 mmol/L (3.5-5.1); Total Protein 6.2 g/dL (6.3-8.2)
[2020-10-03 18:48] LABS: C Reactive Protein 234.4 mg/L (<10.0)
[2020-10-03] MEDS ORDERED: SODIUM CHLORIDE 0.9% 1,000 ML IV STA (18:56)
[2020-10-03 19:06] LABS: Appearance,Urine Cloudy (Clear); Bacteria,Urine Rare /hpf; Bilirubin,Urine Negative (Negative); Blood,Urine Trace (Negative); Budding Yeast,Urine Few /hpf; Color,Urine Yellow; Glucose,Urine (UA) Negative (Negative); Ketones,Urine 1+ (Negative); Leukocyte Esterase,Urine Large (Negative); Nitrite,Urine Negative (Negative); PH, Urine 5.5 (5.0-8.0); Protein,Urine 1+ (Negative); RBC,Urine 46 /hpf (0-5); Specific Gravity,Urine 1.017 (1.001-1.035); Urobilinogen,Urine <2.0 mg/dL (<2.0); WBC,Urine >182 /hpf (0-5)
--- NOTE | 2020-10-03 19:15 | XR ---
EXAMINATION TYPE: XR chest 2V DATE OF EXAM: 10/03/2020 COMPARISON: 12/13/2019 HISTORY: Altered mental status TECHNIQUE: FINDINGS: Heart is normal. Thoracic aorta is atheromatous. There are old right-sided healed rib fract ures. There is arthritic change in the shoulder joints. There are no hilar masses. There is no heart failure. There is no pleural effusion. There is osteopenia. IMPRESSION: No active cardiopulmonary disease. No adverse change.
[2020-10-03] MEDS ORDERED: ONDANSETRON 4 MG/2 ML VIAL IVP PRN (19:49)
[2020-10-03] MEDS ORDERED: NALOXONE 0.4 MG/ML 1 ML VIAL IV PRN (19:49)
[2020-10-03] MEDS ORDERED: ACETAMINOPHEN TAB 325 MG TAB PO PRN (19:49)
[2020-10-03] MEDS ORDERED: VANCOMYCIN IV PER PHARMACY 1 EACH MISC MISCELLANE PRN (19:52)
[2020-10-03] MEDS ORDERED: cefTRIAXone IN SWFI 1,000 MG/10 ML SYRINGE IVP STA (19:52)
[2020-10-03] MEDS ORDERED: VANCOMYCIN 750 MG in SODIUM CHLORIDE 0.9% 250 ML IVPB STA (20:02)
[2020-10-03] MEDS: SODIUM CHLORIDE 0.9% 1,000 ML IV SCH (20:20)
[2020-10-04 07:23] LABS: Glucose,Whole Blood 132 mg/dL (75-99)
[2020-10-04] MEDS: INSULIN ASPART (NovoLOG) 100 UNIT/ML VIAL SQ SCH ×4 (07:46→20:38)
[2020-10-04] MEDS: amLODIPine 10 MG TAB PO SCH (08:29)
[2020-10-04] MEDS: DICYCLOMINE 20 MG TAB PO SCH ×5 (08:29→20:45)
[2020-10-04] MEDS: METOPROLOL TARTRATE 50 MG TAB PO SCH ×3 (08:29→22:37)
[2020-10-04] MEDS: MEMANTINE 5 MG TAB PO SCH ×3 (08:29→22:37)
[2020-10-04] MEDS: MAGNESIUM OXIDE 400 MG TAB PO SCH ×3 (08:29→22:37)
[2020-10-04] MEDS ORDERED: NON FORMULARY DRUG (Ensure Clear 1 BOX Liquid) PO SCH (09:00)
[2020-10-04 09:19] LABS: ALT 38 U/L (4-34); AST 51 U/L (14-36); African American GFR (CKD) 23 (>60 ml/min/1.73 sqM); Albumin 2.4 g/dL (3.5-5.0); Albumin/Globulin Ratio 0.8; Alkaline Phosphatase 83 U/L (38-126); Anion Gap 16 mmol/L; Calcium 8.3 mg/dL (8.4-10.2); Carbon Dioxide 16 mmol/L (22-30); Chloride 115 mmol/L (98-107); Glucose 120 mg/dL (74-99); Magnesium 2.5 mg/dL (1.6-2.3); Non-African American GFR(CKD) 20 (>60 ml/min/1.73 sqM); Potassium 5.6 mmol/L (3.5-5.1); Sodium 147 mmol/L (137-145); Total Bilirubin 0.5 mg/dL (0.2-1.3); Total Protein 5.4 g/dL (6.3-8.2)
[2020-10-04 09:26] LABS: Blood Urea Nitrogen 105 mg/dL (7-17)
--- NOTE | 2020-10-04 11:12 | P.CONS ---
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 Patient is nonverbal history of dementia diabetes hypertension. It is unclear what dressings were utilized for the ulceration. Patient has a stage IV pressure ulceration to the coccyx with bone exposed. Significant amount of slough and nonviable tissue. Ulceration is odiferous with bone exposed. Undermining noted from 6:00 to 9:00. Left posterior scapula stage II pressure ulcer with fatty layer exposure wound edges are attached wound base no undermining or tunneling noted significant amount of slough noted with minimal granulation. My review of systems: Unable to obtain due to mental status Physical exam: General Appearance: Alert, cooperative, no distress, appears stated age. Skin: See HPI all other Skin color, texture, tugor normal, no rashes or lesions. Neurologic: Alert oriented x3 Assessment/plan: 1. Stage IV pressure ulcer with bone exposure: Apply Santyl, saline moistened gauze, dry gauze, ABDs secure paper tape. Change daily. Turn patient every 2 hours. Utilize surface algorithm for appropriate surface for offloading. Consult nutrition. Patient may benefit from excisional debridement however due to comorbidities surgical debridement may not be an option. We'll be happy to see the patient in the wound care center can continue with debridements to assist and granulation. 2. Stage II pressure ulcer left scapula with fat layer exposure. Apply Santyl, feeling was gauze, dry gauze, ABDs secure with paper tape change daily. Continue to offload. 3. Failure to thrive Thank you for the consultation any questions please contact the wound care center DNP note has been reviewed and discussed with Dr. Srivastava and the impression and plan of care has been directed as dictated. Past Medical History Past Medical History: Dementia, Diabetes Mellitus, GERD/Reflux, Hyperlipidemia, Hypertension Additional Past Medical History / Comment(s): uti-ecoli, IBS, ulcerative colitis History of Any Multi-Drug Resistant Organisms: ESBL Year Discovered:: 06/04/20 MDRO Source:: URINE ESBL Past Surgical History: Cholecystectomy Past Anesthesia/Blood Transfusion Reactions: No Reported Reaction Past Psychological History: No Psychological Hx Reported Additional Psychological History / Comment(s): pt came from [facility], is mostly nonverbal at this time and bedbound Smoking Status: Unknown if ever smoked Past Alcohol Use History: None Reported Past Drug Use History: None Reported - Past Family History Father History Unknown: Yes Mother History Unknown: Yes Medications and Allergies Home Medications Medication Instructions Recorded Confirmed Type Donepezil [Aricept] 10 mg PO HS@209905/10/17 10/03/20 History Losartan Potassium 75 mg PO DAILY@0900 05/10/17 10/03/20 History amLODIPine [Norvasc] 10 mg PO DAILY@0900 05/10/17 10/03/20 History Magnesium Oxide [Mag-Ox] 400 mg PO BID@0900,209910/21/17 10/03/20 History Memantine [Namenda] 5 mg PO BID@0900,209910/21/17 10/03/20 History Acetaminophen [Tylenol] 650 mg PO Q6H PRN 12/13/19 10/03/20 History Dicyclomine [Bentyl] 20 mg PO QID@09,,,12/13/19 10/03/20 History Metoprolol Tartrate [Lopressor] 50 mg PO BID@0900,209912/13/19 10/03/20 History Ensure Clear 1 can PO TID@0900,1400,199903/11/20 10/03/20 History Brooke Lotion 1 applic TOPICAL Q6H PRN 03/11/20 10/03/20 History Collagenase [Santyl] 1 applic TOPICAL HS 10/03/20 10/03/20 History Famotidine [Pepcid] 20 mg PO HS@209910/03/20 10/03/20 History Insulin Aspart [NovoLOG] See Protocol SQ TID@0800,1200,1700 10/03/20 10/03/20 History Insulin Degludec [Tresiba 12 unit SQ HS@209910/03/20 10/03/20 History Flextouch U-100] Losartan Potassium [Cozaar] 25 mg PO DAILY@0900 10/03/20 10/03/20 History Pioglitazone [Actos] 30 mg PO DAILY@0900 10/03/20 10/03/20 History Prostat Awc 30 ml PO BID@0900,1700 10/03/20 10/03/20 History Allergies Allergy/AdvReac Type Severity Reaction Status Date / Time No Known Allergies Allergy Verified 10/03/20 17:45 Physical Exam Vitals: Vital Signs Temp Pulse Pulse Resp BP BP Pulse Ox 10/04/20 08:00 97.6 F 87 16 89 L 10/04/20 00:52 97.7 F 118 H 17 118/71 99 10/03/20 22:30 18 10/03/20 21:27 98.0 F 95 18 118/61 100 10/03/20 19:20 97.9 F 98 20 113/56 100 10/03/20 17:12 97.8 F 96 18 118/62 100 Intake and Output 10/03/20 10/04/20 10/04/20 22:59 06:59 14:59 Other: Voiding Method Diaper Diaper Incontinent Incontinent # Voids 1 Weight 48.081 kg Results CBC & Chem 7: 10/03/20 18:08 10/04/20 06:53 Labs: Abnormal Lab Results - Last 24 Hours (Table) 10/03/20 10/03/20 10/03/20 Range/Units 18:08 18:08 18:08 WBC 18.6 H (3.8-10.6) k/uL Hgb 10.8 L (11.4-16.0) gm/dL Hct 33.1 L (34.0-46.0) % Plt Count 640 H (150-450) k/uL Neutrophils # 15.5 H (1.3-7.7) k/uL ESR (0-20) mm/hr Sodium (137-145) mmol/L Potassium 5.7 H (3.5-5.1) mmol/L Chloride (98-107) mmol/L Carbon Dioxide 21 L (22-30) mmol/L BUN 128 H* (7-17) mg/dL Creatinine 2.74 H (0.52-1.04) mg/dL Glucose (74-99) mg/dL POC Glucose (mg/dL) (75-99) mg/dL Calcium (8.4-10.2) mg/dL Magnesium 2.6 H (1.6-2.3) mg/dL AST 76 H (14-36) U/L ALT 47 H (4-34) U/L C-Reactive Protein 234.4 H (<10.0) mg/L Total Protein 6.2 L (6.3-8.2) g/dL Albumin 2.8 L (3.5-5.0) g/dL Urine Appearance Cloudy H (Clear) Urine Protein 1+ H (Negative) Urine Ketones 1+ H (Negative) Urine Blood Trace H (Negative) Ur Leukocyte Esterase Large H (Negative) Urine RBC 46 H (0-5) /hpf Urine WBC >182 H (0-5) /hpf Urine WBC Clumps Many H (None) /hpf Urine Bacteria Rare H (None) /hpf Urine Yeast (Budding) Few H (None) /hpf 10/03/20 10/04/20 10/04/20 Range/Units 19:17 06:53 07:22 WBC (3.8-10.6) k/uL Hgb (11.4-16.0) gm/dL Hct (34.0-46.0) % Plt Count (150-450) k/uL Neutrophils # (1.3-7.7) k/uL ESR 106 H (0-20) mm/hr Sodium 147 H (137-145) mmol/L Potassium 5.6 H (3.5-5.1) mmol/L Chloride 115 H (98-107) mmol/L Carbon Dioxide 16 L (22-30) mmol/L BUN 105 H* (7-17) mg/dL Creatinine 2.14 H (0.52-1.04) mg/dL Glucose 120 H (74-99) mg/dL POC Glucose (mg/dL) 132 H (75-99) mg/dL Calcium 8.3 L (8.4-10.2) mg/dL Magnesium 2.5 H (1.6-2.3) mg/dL AST 51 H (14-36) U/L ALT 38 H (4-34) U/L C-Reactive Protein (<10.0) mg/L Total Protein 5.4 L (6.3-8.2) g/dL Albumin 2.4 L (3.5-5.0) g/dL Urine Appearance (Clear) Urine Protein (Negative) Urine Ketones (Negative) Urine Blood (Negative) Ur Leukocyte Esterase (Negative) Urine RBC (0-5) /hpf Urine WBC (0-5) /hpf Urine WBC Clumps (None) /hpf Urine Bacteria (None) /hpf Urine Yeast (Budding) (None) /hpf Microbiology - Last 24 Hours (Table) 10/03/20 18:08 Gram Stain - Preliminary Buttock Wound Culture - Preliminary 10/03/20 18:08 Urine Culture - Preliminary Urine,Catheterized Assessment and Plan (1) Pressure ulcer of sacral region, stage 4 Current Visit: Yes Status: Acute Code(s): L89.154 - PRESSURE ULCER OF SACRAL REGION, STAGE 4 SNOMED Code(s): 196482382 (2) Stage II pressure ulcer of back Current Visit: Yes Status: Acute Code(s): L89.102 - PRESSURE ULCER OF UNSPECIFIED PART OF BACK, STAGE 2 SNOMED Code(s): 052271948 (3) Failure to thrive in adult Current Visit: Yes Status: Acute Code(s): R62.7 - ADULT FAILURE TO THRIVE SNOMED Code(s): 203851692
[2020-10-04 11:46] LABS: Hemoglobin A1C 9.7 % (4.0-6.0)
[2020-10-04 11:56] LABS: Glucose,Whole Blood 143 mg/dL (75-99)
--- NOTE | 2020-10-04 12:29 | P.NPCON ---
History of Present Illness - Reason for Consult acute renal failure, hyperkalemia - History of Present Illness Reason for consultation: Acute kidney injury and hyperkalemia History of present illness: Patient is a 85-year-old female seen in consultation for acute kidney injury. Patient's creatinine as of June 2020 was 0.81. It was elevated at 2.74 on admission and is 2.14 today. She presents from an extended care facility due to failure to thrive. She is noted to have a large sacral decubitus ulcer as well. Patient is not a reliable historian and does not respond to verbal commands. Her potassium level was also high at 5.7 and is 5.6 today. She is quite acidotic with a bicarbonate level of 16 today. Sodium level was also high at 147 today. Blood pressure is stable. Patient is incontinent. I's and O's are not measured. She does have history of diabetes. She was also on losartan at home which is currently held. She is receiving normal saline at 75 mL an hour. No report of vomiting or diarrhea. I don't see any nonsteroidals and her home medications. No fever. Vital signs are stable. General: The patient appeared well nourished and normally developed. HEENT: Head exam is unremarkable. Neck is without jugular venous distension. LUNGS: Lungs are clear to auscultation and percussion. Breath sounds decreased. HEART: Rate and Rhythm are regular. ABDOMEN: Soft, nontender. EXTREMITITES: No edema. Past Medical History Past Medical History: Dementia, Diabetes Mellitus, GERD/Reflux, Hyperlipidemia, Hypertension Additional Past Medical History / Comment(s): uti-ecoli, IBS, ulcerative colitis History of Any Multi-Drug Resistant Organisms: ESBL Date of last positivie culture/infection: 06/04/20 MDRO Source:: URINE ESBL Past Surgical History: Cholecystectomy Past Anesthesia/Blood Transfusion Reactions: No Reported Reaction Past Psychological History: No Psychological Hx Reported Additional Psychological History / Comment(s): pt came from [facility], is mostly nonverbal at this time and bedbound Smoking Status: Unknown if ever smoked Past Alcohol Use History: None Reported Past Drug Use History: None Reported - Past Family History Father History Unknown: Yes Mother History Unknown: Yes Medications and Allergies Home Medications Medication Instructions Recorded Confirmed Type Donepezil [Aricept] 10 mg PO HS@2100 05/10/17 10/03/20 History Losartan Potassium 75 mg PO DAILY@0900 05/10/17 10/03/20 History amLODIPine [Norvasc] 10 mg PO DAILY@0900 05/10/17 10/03/20 History Magnesium Oxide [Mag-Ox] 400 mg PO BID@0900,209910/21/17 10/03/20 History Memantine [Namenda] 5 mg PO BID@0900,209910/21/17 10/03/20 History Acetaminophen [Tylenol] 650 mg PO Q6H PRN 12/13/19 10/03/20 History Dicyclomine [Bentyl] 20 mg PO QID@,,,12/13/19 10/03/20 History Metoprolol Tartrate [Lopressor] 50 mg PO BID@0900,209912/13/19 10/03/20 History Ensure Clear 1 can PO TID@0900,1400,199903/11/20 10/03/20 History Brooke Lotion 1 applic TOPICAL Q6H PRN 03/11/20 10/03/20 History Collagenase [Santyl] 1 applic TOPICAL HS 10/03/20 10/03/20 History Famotidine [Pepcid] 20 mg PO HS@209910/03/20 10/03/20 History Insulin Aspart [NovoLOG] See Protocol SQ TID@0800,1200,1700 10/03/20 10/03/20 History Insulin Degludec [Tresiba 12 unit SQ HS@209910/03/20 10/03/20 History Flextouch U-100] Losartan Potassium [Cozaar] 25 mg PO DAILY@0900 10/03/20 10/03/20 History Pioglitazone [Actos] 30 mg PO DAILY@0900 10/03/20 10/03/20 History Prostat Awc 30 ml PO BID@0900,1700 10/03/20 10/03/20 History Allergies Allergy/AdvReac Type Severity Reaction Status Date / Time No Known Allergies Allergy Verified 10/03/20 17:45 Physical Exam Vitals: Vital Signs Temp Pulse Pulse Resp BP BP Pulse Ox 10/04/20 08:00 97.6 F 87 16 89 L 10/04/20 00:52 97.7 F 118 H 17 118/71 99 10/03/20 22:30 18 10/03/20 21:27 98.0 F 95 18 118/61 100 10/03/20 19:20 97.9 F 98 20 113/56 100 10/03/20 17:12 97.8 F 96 18 118/62 100 Intake and Output 10/03/20 10/04/20 10/04/20 22:59 06:59 14:59 Other: Voiding Method Diaper Diaper Incontinent Incontinent # Voids 1 Weight 48.081 kg Results - Lab Results Most recent lab results Calcium 8.3 mg/dL (8.4-10.2) L 10/04/20 06:53 Magnesium 2.5 mg/dL (1.6-2.3) H 10/04/20 06:53 10/03/20 18:08 10/04/20 06:53 Assessment and Plan Plan: Assessment: 1. Acute kidney injury mostly prerenal from poor intake. Creatinine 2.74 on admission and is 2.14 today. Creatinine was near 1 in June 2020. Rule out urinary retention. 2. Hypernatremia from lack of oral water intake. 3. Metabolic acidosis secondary to acute kidney injury and IV fluids. 4. Hyperkalemia secondary to acute kidney injury, acidosis and losartan. 5. Diabetes mellitus. 6. Stage IV decubitus ulcer. Plan: Stop normal saline. Start D5W with 100 meq of bicarb to be run at 100 mL an hour. I will also add oral sodium bicarb. Hold losartan. Repeat potassium level this evening. Check bladder scan to rule out urinary retention. Check renal ultrasound. Continue to monitor renal function and urine output. Thank you for the consultation. I will continue to follow the patient with you during her hospital stay.
[2020-10-04] MEDS: SODIUM BICARBONATE TAB 650 MG TAB PO SCH ×4 (12:45→22:38)
[2020-10-04] MEDS: SODIUM CHLORIDE 0.9% 1,000 ML IV SCH (12:46)
[2020-10-04 14:08] VITALS: BMI 18.1
[2020-10-04] MEDS: DEXTROSE 5% IN WATER 1,000 ML with SODIUM BICARB (1 MEQ/ML) 100 ML IV SCH (14:46)
[2020-10-04] MEDS: COLLAGENASE 250 UNIT/GM OINTMENT 30 GM TUBE TOPICAL SCH (14:46)
--- NOTE | 2020-10-04 14:51 | HP ---
HISTORY AND PHYSICAL DATE OF SERVICE: 10/04/2020. CHIEF COMPLAINTS: Failure to thrive and weakness. HISTORY OF PRESENT ILLNESS: This 85-year-old woman with a past medical history of multiple medical problems including dementia, diabetes mellitus, GERD, hypertension, hyperlipidemia, history of UTI, E coli, IBS, ulcerative colitis, being followed Dr. Wharton at [facility] in the [facility], was noted to have generalized weakness and the patient also had not been eating and the patient also had an ulcer on the buttocks stage IV with exposed bone at this time and the patient admitted for further evaluation and treatment. Currently the patient is stuporous and unable to give coherent history. Most of the history is taken from my discussion with staff and review of the chart at this time. PAST MEDICAL HISTORY: Dementia, diabetes mellitus, GERD, hypertension, hyperlipidemia. MEDICATIONS: Medications are: 1. Tylenol. 2. Norvasc. 3. Santyl. 4. Bentyl. 5. Aricept. 6. NovoLog. 7. Levemir. 8. Namenda. 9. Lopressor. 10.Narcan. 11.Zofran. ALLERGIES: Please note allergies are none. Family history, social history and review of systems could not be taken because of the change in mental status. PHYSICAL EXAMINATION: Patient is stuporous. Pulse 87, blood pressure 118/71, respirations 16, temperature 97.6, pulse ox 89% on room air. HEENT: Conjunctivae normal. NECK: No jugular venous distention. CARDIOVASCULAR: S1, S2 muffled. RESPIRATORY: Breath sounds diminished at the bases. A few rhonchi. No crackles. ABDOMEN: Soft, nontender. No mass palpable. LEGS: No edema, no swelling. NERVOUS SYSTEM: Diffusely weak, could not be examined completely. EXAMINATION OF THE BACK: Stage IV decubitus with foul-smelling discharge SKIN: As mentioned. JOINTS: No active deforming arthropathy. LYMPHATICS: No lymphadenopathy of the neck, axillae or groin. LAB INVESTIGATION: WBC 18.2, hemoglobin 10.8, sodium 141, potassium 5.7, creatinine is 2.74. The baseline creatinine is 0.81, otherwise other labs are noted. ASSESSMENT: 1. Stage IV decubitus ulcer with possible osteomyelitis with sepsis, present on admission. 2. Acute renal failure. 3. Hyperkalemia secondary to acute renal failure. 4. Increased WBC. 5. History of dementia. 6. Urinary tract infection, present on admission. 7. Diabetes mellitus type 2. 8. Gastroesophageal reflux disease. 9. Hypertension. 10.Hyperlipidemia. 11.History of ulcerative colitis. 12.History of irritable bowel syndrome. 13.History of ESBL. 14.NO CODE with instructions. 15.ESBL. 16.NO CODE with instructions. RECOMMENDATIONS AND DISCUSSION: This 85-year-old woman who presented with multiple complex medical issues, we will monitor the patient closely. We will initiate broad-spectrum IV antibiotics. Consult Dr. Rey and as well as Surgery for possible debridement other than that wound care. The patient is started on IV Unasyn. Prognosis guarded because of multiple complex medical issues. Further recommendations to follow. A copy of dictation forwarded to Dr. Wharton who is the primary physician. Home medications will be reviewed and continued. MMODL / IDALIAN: [id number] /
[2020-10-04 16:55] LABS: Glucose,Whole Blood 251 mg/dL (75-99)
--- NOTE | 2020-10-04 16:57 | US ---
EXAMINATION TYPE: US kidneys/renal and bladder DATE OF EXAM: 10/04/2020 COMPARISON: CT 02/03/2018 CLINICAL HISTORY: dennis. EXAM MEASUREMENTS: Right Kidney: 8.3 cm, possibly foreshortened view Left Kidney: 7.5 cm cm Right Kidney: No hydronephrosis. There is cortical thinning. Left Kidney: Cortical thinning is present. Possible cortical cyst at the upper pole is not well akbar cterized, no hydronephrosis Bladder: There is dependent debris present within the bladder Bilateral Jets seen: No Cortical medullary differentiation is maintained. IMPRESSION: Dependent debris within the bladder. Findings consistent with renal failure, medical renal disease. N o evident hydronephrosis.
[2020-10-04] MEDS: AMPICILLIN-SULBACTAM 3 GM in SODIUM CHLORIDE 0.9% 100 ML IVPB SCH (17:13)
[2020-10-04] MEDS ORDERED: AMPICILLIN-SULBACTAM 3 GM in SODIUM CHLORIDE 0.9% 100 ML IVPB SCH (18:00)
[2020-10-04 20:35] LABS: Glucose,Whole Blood 239 mg/dL (75-99)
[2020-10-04] MEDS: DONEPEZIL 10 MG TAB PO SCH ×2 (20:35→22:37)
[2020-10-04] MEDS ORDERED: INSULIN DETEMIR (LEVEMIR) 100 UNIT/ML SYR SQ SCH (21:00)
[2020-10-04] MEDS ORDERED: VANCOMYCIN 750 MG in SODIUM CHLORIDE 0.9% 250 ML IVPB ONE (21:00)
[2020-10-04] MEDS ORDERED: FAMOTIDINE 20 MG TAB PO SCH (21:00)
--- NOTE | 2020-10-05 00:19 | CONS ---
CONSULTATION DATE OF SERVICE: 10/04/2020 REASON FOR CONSULTATION: Sacral pressure ulcer infected. HISTORY OF PRESENT ILLNESS: The patient is an 85-year-old female, past medical history significant for dementia, diabetes mellitus, hypertension, and halfway resident. The patient was sent to the ER from halfway for evaluation of failure to thrive. Apparently, the patient has been not eating or drinking for the last few days to a week. The patient did have ulcer to the sacral area that has been there for a couple of weeks to months now and was noticed to have more foul smelling drainage from it, but no clear fever. On presentation to the hospital, the patient has been afebrile. Patient did have white count of 18.6, was 2.14. Urine has been positive. Valdes PCR was negative. The patient did have a chest x-ray, no active cardiopulmonary disease. Patient was started on vancomycin in the hospital. Infectious Disease was consulted regarding her infected sacral pressure ulcer. Most information has been obtained from review of the chart and talking to the nursing staff as the patient did not answer a single question. REVIEW OF SYSTEMS: Positive points have been mentioned in HPI. Complete review could not be obtained because of underlying mental status. PAST MEDICAL HISTORY: Dementia, diabetes mellitus, gastroesophageal reflux disease, hypertension, hyperlipidemia, colitis, history of UTI. PAST SURGICAL HISTORY: Cholecystectomy. SOCIAL HISTORY: retirement resident. No history of smoking, drinking or drug use. FAMILY HISTORY: No pertinent findings noticed. ALLERGIES: No known drug allergies. MEDICATIONS: The patient is currently on vancomycin pharmacy to dose, Tylenol, Norvasc, Bentyl, Aricept, NovoLog, Levemir, Mag oxide, Namenda, Lopressor, Narcan, Zofran. PHYSICAL EXAMINATION: Blood pressure is 110/65, pulse of 69, temperature 97.4. She is 97% on room air. General description is an elderly female lying in bed in no distress. HEENT: Examination shows no pallor or scleral icterus. Oral mucous membranes dry. NECK: Trachea central. No thyromegaly. LUNGS: Unlabored breathing, clear to auscultation anteriorly. HEART S1, S2. Regular rate and rhythm. ABDOMEN: Soft, no tenderness. No guarding. No rigidity. EXTREMITIES: No edema of the feet. SKIN examination of sacral area did show unstageable sacral pressure ulcer with significant slough tissue surrounding redness and foul smelling drainage. NEUROLOGICAL: Patient is awake, alert. Orientation could not be determined as the patient nonverbal. LABS: Hemoglobin is 10.1, white count of 18.6, BUN of 105, creatinine is 2.14, white count 5.3 repeat is 4.5. Liver enzymes mildly elevated. Urine is positive. DIAGNOSTIC IMPRESSION: 1. Patient admitted to the hospital with failure to thrive in this patient who did have a large sacral pressure ulcer, unstageable with likely infection. Significant MRSA, may need to be surgically debrided. 2. Patient with urinary tract infection, likely from enteric gram-negative pathogen. 3. The patient is high risk of nephrotoxicity. PLAN: 1. Discontinue vancomycin. 2. Start the patient on Zosyn 3 grams q.8 hours. 3. General surgery evaluation for surgical debridement and deep culture. 4. We will follow on clinical condition and further adjust medication if needed. Thank you for this consultation. Will follow this patient along with you. MMODL / IJN: [id number] /
[2020-10-05] MEDS: AMPICILLIN-SULBACTAM 3 GM in SODIUM CHLORIDE 0.9% 100 ML IVPB SCH ×3 (00:49→17:42)
[2020-10-05] MEDS: DEXTROSE 5% IN WATER 1,000 ML with SODIUM BICARB (1 MEQ/ML) 100 ML IV SCH ×2 (01:54→10:46)
[2020-10-05 07:06] LABS: Glucose,Whole Blood 198 mg/dL (75-99)
[2020-10-05 07:08] LABS: African American GFR (CKD) 48 (>60 ml/min/1.73 sqM); Anion Gap 7 mmol/L; Blood Urea Nitrogen 74 mg/dL (7-17); Carbon Dioxide 29 mmol/L (22-30); Chloride 106 mmol/L (98-107); Glucose 167 mg/dL (74-99); Magnesium 2.1 mg/dL (1.6-2.3); Non-African American GFR(CKD) 42 (>60 ml/min/1.73 sqM); Potassium 3.8 mmol/L (3.5-5.1); Sodium 142 mmol/L (137-145)
[2020-10-05 08:13] VITALS: RESP 15
[2020-10-05] MEDS: MEMANTINE 5 MG TAB PO SCH (08:19)
[2020-10-05] MEDS: MAGNESIUM OXIDE 400 MG TAB PO SCH (08:19)
[2020-10-05] MEDS: INSULIN ASPART (NovoLOG) 100 UNIT/ML VIAL SQ SCH ×3 (08:19→17:42)
[2020-10-05] MEDS: METOPROLOL TARTRATE 50 MG TAB PO SCH (08:19)
[2020-10-05] MEDS: DICYCLOMINE 20 MG TAB PO SCH ×3 (08:19→17:42)
[2020-10-05] MEDS: amLODIPine 10 MG TAB PO SCH (08:19)
[2020-10-05] MEDS: SODIUM BICARBONATE TAB 650 MG TAB PO SCH (08:19)
[2020-10-05] MEDS: COLLAGENASE 250 UNIT/GM OINTMENT 30 GM TUBE TOPICAL SCH (08:20)
[2020-10-05 08:52] LABS: Basophils # (A) 0.03 X 10*3/uL (0.00-0.10); Basophils % (A) 0.2 %; Eosinophils # (A) 0.22 X 10*3/uL (0.04-0.35); Eosinophils % (A) 1.3 %; HCT 27.3 % (37.2-46.3); HGB 8.8 g/dL (12.0-15.0); Lymphocytes # (A) 1.64 X 10*3/uL (0.90-5.00); MCH 26.9 pg (27.0-32.0); MCHC 32.2 g/dL (32.0-37.0); MCV 83.5 fL (80.0-97.0); Mean Platelet Volume 10.7 fL (9.5-12.2); Monocytes # (A) 0.59 X 10*3/uL (0.20-1.00); Monocytes % (A) 3.6 %; Neutrophils # (A) 13.75 X 10*3/uL (1.80-7.70); Neutrophils % (A) 83.9 %; Platelet Count 574 X 10*3/uL (140-440); RBC 3.27 X 10*6/uL (4.10-5.20); RDW 16.7 % (11.5-14.5); WBC 16.39 X 10*3/uL (4.50-10.00)
[2020-10-05 11:24] LABS: Glucose,Whole Blood 119 mg/dL (75-99)
--- NOTE | 2020-10-05 11:33 | P.PN ---
Subjective Patient is seen in follow-up for acute kidney injury. Renal function continues to improve. Oral intake remains quite poor. Patient is incontinent but has been waiting. Not a reliable historian. Vital signs are stable. General: The patient appeared well nourished and normally developed. HEENT: Head exam is unremarkable. Neck is without jugular venous distension. LUNGS: Lungs are clear to auscultation and percussion. Breath sounds decreased. HEART: Rate and Rhythm are regular. ABDOMEN: Soft, nontender. EXTREMITITES: No edema. Objective - Vital Signs Vital signs: Vital Signs Temp 98.4 F 10/05/20 08:00 Pulse 91 10/05/20 08:00 Resp 15 10/05/20 08:00 BP 105/62 10/05/20 08:00 Pulse Ox 99 10/05/20 08:00 Intake & Output 10/04/20 10/05/20 10/05/20 18:59 06:59 18:59 Weight 48.081 kg Other: Voiding Method Diaper Diaper Diaper Incontinent Incontinent Incontinent # Voids 1 1 - Labs CBC & Chem 7: 10/05/20 06:12 10/05/20 06:12 Labs: Abnormal Lab Results - Last 24 Hours (Table) 10/04/20 10/04/20 10/04/20 Range/Units 06:53 11:54 16:53 WBC (4.50-10.00) X 10*3/uL RBC (4.10-5.20) X 10*6/uL Hgb (12.0-15.0) g/dL Hct (37.2-46.3) % MCH (27.0-32.0) pg RDW (11.5-14.5) % Plt Count (140-440) X 10*3/uL Immature Gran # (0.00-0.04) X 10*3/uL Neutrophils # (1.80-7.70) X 10*3/uL BUN (7-17) mg/dL Creatinine (0.52-1.04) mg/dL Glucose (74-99) mg/dL POC Glucose (mg/dL) 143 H 251 H (75-99) mg/dL Hemoglobin A1c 9.7 H (4.0-6.0) % Calcium (8.4-10.2) mg/dL 10/04/20 10/05/20 10/05/20 Range/Units 20:32 06:12 06:12 WBC 16.39 H (4.50-10.00) X 10*3/uL RBC 3.27 L (4.10-5.20) X 10*6/uL Hgb 8.8 L (12.0-15.0) g/dL Hct 27.3 L (37.2-46.3) % MCH 26.9 L (27.0-32.0) pg RDW 16.7 H (11.5-14.5) % Plt Count 574 H (140-440) X 10*3/uL Immature Gran # 0.16 H (0.00-0.04) X 10*3/uL Neutrophils # 13.75 H (1.80-7.70) X 10*3/uL BUN 74 H (7-17) mg/dL Creatinine 1.18 H (0.52-1.04) mg/dL Glucose 167 H (74-99) mg/dL POC Glucose (mg/dL) 239 H (75-99) mg/dL Hemoglobin A1c (4.0-6.0) % Calcium 8.0 L (8.4-10.2) mg/dL 10/05/20 10/05/20 Range/Units 07:05 11:22 WBC (4.50-10.00) X 10*3/uL RBC (4.10-5.20) X 10*6/uL Hgb (12.0-15.0) g/dL Hct (37.2-46.3) % MCH (27.0-32.0) pg RDW (11.5-14.5) % Plt Count (140-440) X 10*3/uL Immature Gran # (0.00-0.04) X 10*3/uL Neutrophils # (1.80-7.70) X 10*3/uL BUN (7-17) mg/dL Creatinine (0.52-1.04) mg/dL Glucose (74-99) mg/dL POC Glucose (mg/dL) 198 H 119 H (75-99) mg/dL Hemoglobin A1c (4.0-6.0) % Calcium (8.4-10.2) mg/dL Microbiology - Last 24 Hours (Table) 03/03/21 21:04 Blood Culture Gram Stain - Preliminary Blood 10/03/20 18:08 Blood Culture - Preliminary Blood No Growth after 24 hours 10/03/20 18:08 Urine Culture - Preliminary Urine,Catheterized Yeast species 10/03/20 18:08 Gram Stain - Preliminary Buttock Wound Culture - Preliminary Gram Neg Bacilli Gram Neg Bacilli#2 10/03/20 21:04 Blood Culture - Final Blood Assessment and Plan Plan: Assessment: 1. Acute kidney injury mostly prerenal from poor intake. Creatinine 2.74 on admission and is 1.18 today. Creatinine was near 1 in June 2020. Renal ultrasound revealed no evidence of hydronephrosis but both kidneys are atrophic. 2. Hypernatremia from lack of oral water intake. Improved. 3. Metabolic acidosis secondary to acute kidney injury and IV fluids. Improved. 4. Hyperkalemia secondary to acute kidney injury, acidosis and losartan. Resolved. 5. Diabetes mellitus. 6. Stage IV decubitus ulcer. Plan: Stop hypotonic bicarbonate drip. Start normal saline at 75 mL an hour. Hold losartan. Continue to monitor renal function and urine output.
[2020-10-05] MEDS ORDERED: SODIUM CHLORIDE 0.9% 1,000 ML IV SCH (11:45)
--- NOTE | 2020-10-05 11:53 | P.GSCN ---
History of Present Illness Consult date: 10/05/20 History of present illness: 85-year-old female presented from nursing facility to the emergency department secondary to progressively worsening stage IV Decubitus Sacral Ulcer. She is known to have failure to thrive along with dementia, diabetes and hypertension. She has received care for this decubitus ulcer while at the nursing facility. There is concern of infection at this site. Patient is nonverbal and medical decisions are made by the patient's son. Unable to obtain history based on the patient's nonverbal status. Medical chart was reviewed to obtain history. Review of Systems ROS unobtainable: due to mental status Past Medical History Past Medical History: Dementia, Diabetes Mellitus, GERD/Reflux, Hyperlipidemia, Hypertension Additional Past Medical History / Comment(s): uti-ecoli, IBS, ulcerative colitis History of Any Multi-Drug Resistant Organisms: ESBL Year Discovered:: 06/04/20 MDRO Source:: URINE ESBL Past Surgical History: Cholecystectomy Past Anesthesia/Blood Transfusion Reactions: No Reported Reaction Past Psychological History: No Psychological Hx Reported Additional Psychological History / Comment(s): pt came from [facility], is mostly nonverbal at this time and bedbound Smoking Status: Unknown if ever smoked Past Alcohol Use History: None Reported Past Drug Use History: None Reported - Past Family History Father History Unknown: Yes Mother History Unknown: Yes Medications and Allergies Home Medications Medication Instructions Recorded Confirmed Type Donepezil [Aricept] 10 mg PO HS@209905/10/17 10/03/20 History Losartan Potassium 75 mg PO DAILY@0900 05/10/17 10/03/20 History amLODIPine [Norvasc] 10 mg PO DAILY@0900 05/10/17 10/03/20 History Magnesium Oxide [Mag-Ox] 400 mg PO BID@0900,209910/21/17 10/03/20 History Memantine [Namenda] 5 mg PO BID@0900,209910/21/17 10/03/20 History Acetaminophen [Tylenol] 650 mg PO Q6H PRN 12/13/19 10/03/20 History Dicyclomine [Bentyl] 20 mg PO QID@09,13,17,12/13/19 10/03/20 History Metoprolol Tartrate [Lopressor] 50 mg PO BID@0900,209912/13/19 10/03/20 History Ensure Clear 1 can PO TID@0900,1400,2000 03/11/20 10/03/20 History Brooke Lotion 1 applic TOPICAL Q6H PRN 03/11/20 10/03/20 History Collagenase [Santyl] 1 applic TOPICAL HS 10/03/20 10/03/20 History Famotidine [Pepcid] 20 mg PO HS@2100 10/03/20 10/03/20 History Insulin Aspart [NovoLOG] See Protocol SQ TID@0800,1200,1700 10/03/20 10/03/20 History Insulin Degludec [Tresiba 12 unit SQ HS@2100 10/03/20 10/03/20 History Flextouch U-100] Losartan Potassium [Cozaar] 25 mg PO DAILY@0900 10/03/20 10/03/20 History Pioglitazone [Actos] 30 mg PO DAILY@0900 10/03/20 10/03/20 History Prostat Awc 30 ml PO BID@0900,1700 10/03/20 10/03/20 History Allergies Allergy/AdvReac Type Severity Reaction Status Date / Time No Known Allergies Allergy Verified 10/03/20 17:45 Surgical - Exam Osteopathic Statement: *. No significant issues noted on an osteopathic structural exam other than those noted in the History and Physical/Consult. Vital Signs Temp Pulse Resp BP Pulse Ox 97.8 F 96 18 118/62 100 10/03/20 17:12 10/03/20 17:12 10/03/20 17:12 10/03/20 17:12 10/03/20 17:12 - General no distress - Eyes normal ocular movement - Neck trachea midline - Respiratory normal respiratory effort - Integumentary Stage IV pressure ulceration to the coccyx with bone exposed. Significant amount of green slough and nonviable tissue. There is an odor to the wound. Undermining to the inferior and left side of the wound is noted. Muscle is also exposed inferiorly. Results - Labs 10/05/20 06:12 10/05/20 06:12 Abnormal Lab Results - Last 24 Hours (Table) 10/04/20 10/04/20 10/04/20 Range/Units 06:53 11:54 16:53 WBC (4.50-10.00) X 10*3/uL RBC (4.10-5.20) X 10*6/uL Hgb (12.0-15.0) g/dL Hct (37.2-46.3) % MCH (27.0-32.0) pg RDW (11.5-14.5) % Plt Count (140-440) X 10*3/uL Immature Gran # (0.00-0.04) X 10*3/uL Neutrophils # (1.80-7.70) X 10*3/uL BUN (7-17) mg/dL Creatinine (0.52-1.04) mg/dL Glucose (74-99) mg/dL POC Glucose (mg/dL) 143 H 251 H (75-99) mg/dL Hemoglobin A1c 9.7 H (4.0-6.0) % Calcium (8.4-10.2) mg/dL 10/04/20 10/05/20 10/05/20 Range/Units 20:32 06:12 06:12 WBC 16.39 H (4.50-10.00) X 10*3/uL RBC 3.27 L (4.10-5.20) X 10*6/uL Hgb 8.8 L (12.0-15.0) g/dL Hct 27.3 L (37.2-46.3) % MCH 26.9 L (27.0-32.0) pg RDW 16.7 H (11.5-14.5) % Plt Count 574 H (140-440) X 10*3/uL Immature Gran # 0.16 H (0.00-0.04) X 10*3/uL Neutrophils # 13.75 H (1.80-7.70) X 10*3/uL BUN 74 H (7-17) mg/dL Creatinine 1.18 H (0.52-1.04) mg/dL Glucose 167 H (74-99) mg/dL POC Glucose (mg/dL) 239 H (75-99) mg/dL Hemoglobin A1c (4.0-6.0) % Calcium 8.0 L (8.4-10.2) mg/dL 10/05/20 10/05/20 Range/Units 07:05 11:22 WBC (4.50-10.00) X 10*3/uL RBC (4.10-5.20) X 10*6/uL Hgb (12.0-15.0) g/dL Hct (37.2-46.3) % MCH (27.0-32.0) pg RDW (11.5-14.5) % Plt Count (140-440) X 10*3/uL Immature Gran # (0.00-0.04) X 10*3/uL Neutrophils # (1.80-7.70) X 10*3/uL BUN (7-17) mg/dL Creatinine (0.52-1.04) mg/dL Glucose (74-99) mg/dL POC Glucose (mg/dL) 198 H 119 H (75-99) mg/dL Hemoglobin A1c (4.0-6.0) % Calcium (8.4-10.2) mg/dL Microbiology - Last 24 Hours (Table) 10/03/20 21:04 Blood Culture Gram Stain - Preliminary Blood 10/03/20 18:08 Blood Culture - Preliminary Blood No Growth after 24 hours 10/03/20 18:08 Urine Culture - Preliminary Urine,Catheterized Yeast species 10/03/20 18:08 Gram Stain - Preliminary Buttock Wound Culture - Preliminary Gram Neg Bacilli Gram Neg Bacilli#2 10/03/20 21:04 Blood Culture - Final Blood Diabetes panel 10/04/20 10/04/20 10/05/20 Range/Units 06:53 18:52 06:12 Sodium 142 (137-145) mmol/L Potassium 4.5 3.8 (3.5-5.1) mmol/L Chloride 106 (98-107) mmol/L Carbon Dioxide 29 (22-30) mmol/L BUN 74 H (7-17) mg/dL Creatinine 1.18 H (0.52-1.04) mg/dL Glucose 167 H (74-99) mg/dL Hemoglobin A1c 9.7 H (4.0-6.0) % Calcium 8.0 L (8.4-10.2) mg/dL Calcium panel 10/05/20 Range/Units 06:12 Calcium 8.0 L (8.4-10.2) mg/dL Pituitary panel 10/04/20 10/05/20 Range/Units 18:52 06:12 Sodium 142 (137-145) mmol/L Potassium 4.5 3.8 (3.5-5.1) mmol/L Chloride 106 (98-107) mmol/L Carbon Dioxide 29 (22-30) mmol/L BUN 74 H (7-17) mg/dL Creatinine 1.18 H (0.52-1.04) mg/dL Glucose 167 H (74-99) mg/dL Calcium 8.0 L (8.4-10.2) mg/dL Adrenal panel 10/04/20 10/05/20 Range/Units 18:52 06:12 Sodium 142 (137-145) mmol/L Potassium 4.5 3.8 (3.5-5.1) mmol/L Chloride 106 (98-107) mmol/L Carbon Dioxide 29 (22-30) mmol/L BUN 74 H (7-17) mg/dL Creatinine 1.18 H (0.52-1.04) mg/dL Glucose 167 H (74-99) mg/dL Calcium 8.0 L (8.4-10.2) mg/dL Assessment and Plan Plan: 85-year-old female with stage IV sacral decubitus ulcer. Based on the patient's significant comorbidities, she is not a appropriate candidate for an excisional debridement in the operating room. We did attempt to reach the patient's power of family law attorney, son, to discuss possible bedside procedure for debridement. He has not returned that call as of yet. I would recommend continued local wound care and plan for future bedside debridement of this wound if consent provided by patient's son.
[2020-10-05] MEDS ORDERED: LIDOCAINE 1% INJ 10MG/ML (20 ML MDV) SQ STA (12:23)
--- NOTE | 2020-10-05 13:03 | P.PCN ---
Date of Procedure: 10/05/20 Preoperative Diagnosis: Stage IV sacral decubitus ulcer Postoperative Diagnosis: Stage IV sacral decubitus ulcer Procedure(s) Performed: Sharp excisional debridement, stage IV sacral decubital ulcer Anesthesia: local Surgeon: Barb Beckford Pathology: none sent Condition: stable Disposition: floor Indications for Procedure: 85-year-old female presented with large sacral decubitus ulcer with significant amount of slough and necrotic tissue. There is concern of infection at this site. Bone is exposed and concern for osteomyelitis as well. Plan is for debridement at bedside as the patient is current clinical status would not allow for OR debridement. Patient's son is power of attorney law clerk and has provided consent. Risks, benefits and alternatives were provided prior to the consent been provided. Operative Findings: Large sacral decubitus ulcer with necrotic foul-smelling slough, exposed coccyx and sacrum Description of Procedure: Patient was prepped and draped in regular sterile fashion. A 10 blade scalpel was used to perform sharp excisional debridement. There is undermining noted at the left lateral portion of the wound and debridement was performed until some bleeding was noted at the wound bed and the wound lateral edge. On exam, the base of the wound is noted to be exposed bone with sacrum and coccyx exposed. Sharp excisional debridement was also performed on the right lateral portion of the wound where necrotic tissue was present. Debridement was performed until some bleeding at the edges were noted. Based on the size of the wound and the patient's current clinical status, would recommend further chemical debridement with local wound care. She will likely require further debridements in the future based on her clinical status. Case was discussed with patient's admitting physician
[2020-10-05 13:42] VITALS: BP 107/44; PULSE 75; TEMP 97.7
--- NOTE | 2020-10-05 15:32 | DS ---
DISCHARGE SUMMARY DATE OF ADMISSION: 10/03/2020 DATE OF DISCHARGE: 10/05/2020. FINAL DIAGNOSES: 1. Stage IV decubitus ulcer with possible acute osteomyelitis with sepsis, POA. 2. Hyperkalemia due to acute kidney injury. 3. Severe cognitive impairment due to underlying dementia. 4. Urinary tract infection from cystitis, POA. 5. Diabetes mellitus type 2 on oral hypoglycemic. 6. Gastroesophageal reflux disease. 7. Essential hypertension. 8. Hyperlipidemia. 9. Irritable bowel syndrome. 10.Acute kidney injury, prerenal due to poor oral intake. 11.Hypernatremia from lack of oral intake. 12.Metabolic acidosis due to acute kidney injury. CONSULTATIONS: 1. Dr. Beckford from General surgery. 2. Dr. Onofre from Nephrology. 3. Dr. Rey from Infectious Disease. 4. Wound consultation with Roseanna Griffin. HOSPITAL COURSE: [facility] presented with weakness, tiredness, failure to thrive, not eating, drinking at all. The patient has a stage IV large sacral decubitus ulcer. It was debrided. Also put on IV antibiotics. Today, I spoke to Dr. Beckford from General surgery. The decubitus ulcer is not salvageable. It is very large and not treatable. The patient has not been eating or drinking at all. I spoke to patient's son and agreeable to send the patient back to the [facility] with hospice. Discharge planning more than 35 minutes. PHYSICAL EXAMINATION: Temperature 97.7, pulse 75, respiration 15, blood pressure 107/44, pulse ox 94% on room air. GENERAL APPEARANCE: Lying in bed, thin built, wasting of muscles, awake. CARDIOVASCULAR: First and second sounds normal. No edema. PSYCH: Patient not answering questions. INVESTIGATIONS: White count 16.3, hemoglobin 8.8, platelets 574. Potassium 3.8, creatinine 1.18. DISCHARGE MEDICATIONS: 1. Losartan 75 mg a day. 2. Magnesium oxide 400 mg b.i.d. 3. Tylenol 650 mg q.6 p.r.n. 4. Bentyl 20 mg q.i.d. 5. Lopressor 50 mg b.i.d. 6. Ensure 1 can p.o. t.i.d. p.r.n. 7. Santyl topical at bedtime. 8. Pepcid 20 mg at bedtime. DISPOSITION: ECF with hospice. ADVANCED CARE PLANNING: I had a talk with the patient's son, Edwar Wise, telephone number [phone]. The patient's overall condition was discussed. He understood that the patient is doing very poorly, no quality of life and was okay with the patient proceeding with hospice. Unnecessary medications will be discontinued in context of that. Feeding will be comfort care. No artificial feeding otherwise. Questions were answered. The patient is DO NOT RESUSCITATE. The patient will return to the ECF with hospice. Time spent for this was about 20 minutes. DISPOSITION: ECF/[facility]. PARKER / IJN: [id number] /
[2020-10-05 16:29] LABS: Glucose,Whole Blood 91 mg/dL (75-99)
--- NOTE | 2020-10-05 17:40 | PN ---
PROGRESS NOTE DATE OF SERVICE: 10/05/2020 REASON FOR FOLLOWUP VISIT: 1. Sacral pressure ulcer infected. 2. UTI. INTERVAL HISTORY: The patient is currently afebrile. The patient is more awake and alert today. She is breathing comfortably. No chest pain or cough. No abdominal pain or worsening sacral wound area. PHYSICAL EXAMINATION: Blood pressure 107/44, pulse of 65, temperature 97.7. She is 94% on room air. General description is an elderly female lying in bed in no distress. Respiratory system: Unlabored breathing, clear to auscultation anteriorly. Heart S1, S2. Regular rate and rhythm. ABDOMEN: Soft, no tenderness. EXTREMITIES: No edema of the feet. LABS: White count down to 16.39, creatinine 1.18. Blood culture with Gram-negative bacilli. Wound cultures with gram-negative. DIAGNOSTIC IMPRESSION AND PLAN: Patient with Gram-negative bacteremia secondary to the sacral wound status post debridement. Covered with Unasyn. However, admitting physician has talked to the son and wanted the patient to be switched to hospice. If that is the case, antibiotic can be safely discontinued. MMODL / IJN: [id number] /
== END 2020-10-05 18:00 | DRG 853 ==
LOC: EC 17:11 → 4SSUR 20:04 → OBSVTOIN 10-05 09:10
PROVIDERS: ADMIT Hospitalist; ATTEND Hospitalist
PROC: 0JB70ZZ Excision of Back Subcutaneous Tissue and Fascia, Open Approach (ICD-10-PCS; principal; 2020-10-05)
DX: A41.9 Sepsis, unspecified organism (principal); L89.154 Pressure ulcer of sacral region, stage 4; N17.9 Acute kidney failure, unspecified; N39.0 Urinary tract infection, site not specified; E87.2 Acidosis; E87.0 Hyperosmolality and hypernatremia; M46.28 Osteomyelitis of vertebra, sacral and sacrococcygeal region; L89.122 Pressure ulcer of left upper back, stage 2; F03.90 Unspecified dementia, unspecified severity, without behavioral disturbance, psychotic disturbance, mood disturbance, and anxiety; Z66 Do not resuscitate; Z20.822 Contact with and (suspected) exposure to COVID-19; R32 Unspecified urinary incontinence; R62.7 Adult failure to thrive; I10 Essential (primary) hypertension; E78.5 Hyperlipidemia, unspecified; E11.69 Type 2 diabetes mellitus with other specified complication; K21.9 Gastro-esophageal reflux disease without esophagitis; K58.9 Irritable bowel syndrome, unspecified; B96.89 Other specified bacterial agents as the cause of diseases classified elsewhere; Z74.01 Bed confinement status; Z79.4 Long term (current) use of insulin; Z90.49 Acquired absence of other specified parts of digestive tract; Z79.899 Other long term (current) drug therapy; Z87.440 Personal history of urinary (tract) infections; Z87.19 Personal history of other diseases of the digestive system; Z86.19 Personal history of other infectious and parasitic diseases
CPT/HCPCS: 36415; 71046; 76770; 80048; 80053; 81001; 83036; 83605; 83735; 84132; 85025; 85610; 85652; 85730; 86140; 87040; 87070; 87077; 87086; 87186; 87205; 87635; 93005; 96361; 96365; 96375; 99285